=== PATIENT | female | born 1975 | race Caucasian/White ===

== ENCOUNTER 2018-03-30 20:29 | Inpatient (IN) | payer OTHER ==
--- NOTE | 2018-03-30 20:46 | PDOC ---
Rapid Medical Evaluation Medical Evaluation: I have performed a brief in-person evaluation of this patient. The patient presents with a chief complaint of: Hx of Crohn's disease s/p total colectomy with ostomy reversal, c/o NBNB emesis since 2 days ago; states always has watery diarrhea. Denies fever. Feels like Crohn's flareup Pertinent physical exam findings: Appears uncomfortable, dry mucous membranes, with TTP along R side of abdomen I have ordered the following: Labs, IVF, Zofran The patient will proceed to the ED for further evaluation. 03/30/18 20:43
[2018-03-30] MEDS ORDERED: ONDANSETRON 4 MG/2 ML VIAL IVPUSH ONE (20:47)
[2018-03-30] MEDS ORDERED: SODIUM CHLORIDE 1,000 ML IV STA (20:47)
[2018-03-30] MEDS ORDERED: ACETAMINOPHEN 1000 MG/100 ML VIAL (NON FORMULARY) IVPB ONE (20:47)
--- NOTE | 2018-03-30 21:19 | PDOC ---
History of Present Illness - General Chief Complaint: Pain Stated Complaint: ABDOMINAL PAIN HIGH HEART RATE Time Seen by Provider: 03/30/18 21:18 - History of Present Illness Initial Comments: 03/30/18 21:40 The patient is a 42 year old female with a history of crohn's disease who presents for evaluation of abdominal pain, nausea, vomiting, and diarrhea. The patient reports a several day history of worsening crampy right sided abdominal pain with associated nausea and multiple episodes of non-bilious, non-bloody vomiting and non-bloody diarrhea prompting her presentation to the ED for further evaluation. She notes that she had an colectomy with iliostomy and reversal in December 2017 at [facility]. She states that her current symptoms are similar to her normal crohn's flares. She reports some low grade fevers, but otherwise denies chills, SOB, chest pain, headache, numbness, tingling, weakness , or changes with urination. Past History - Past Medical History Allergies/Adverse Reactions: Allergies Allergy/AdvReac Type Severity Reaction Status Date / Time aspirin Allergy Verified 03/30/18 20:47 Iodine and Iodide Containing Allergy Verified 03/31/18 00:17 Produc metoclopramide [From Reglan] Allergy Verified 03/30/18 20:47 morphine Allergy Verified 03/30/18 20:47 Penicillins Allergy Verified 03/30/18 20:47 shellfish derived Allergy Verified 03/30/18 20:47 Home Medications: Ambulatory Orders Diphenoxylate 2.5/Atropine.025 [Lomotil -] 1 combo PO Q6H 03/31/18 Enoxaparin [Lovenox -] 40 mg SQ BID 03/31/18 Loperamide HCl [Imodium -] 8 mg PO QID 03/31/18 Ondansetron [Zofran -] 4 mg PO Q4H PRN 03/31/18 Pantoprazole Sodium [Protonix -] 40 mg PO DAILY 03/31/18 - Suicide/Smoking/Psychosocial Hx Smoking History: Never smoked Have you smoked in the past 12 months: No Information on smoking cessation initiated: No Hx Alcohol Use: No Drug/Substance Use Hx: No Review of Systems - Review of Systems Comments:: 03/30/18 21:44 Constitutional: Low grade fever. No chills, fatigue, malaise HEENT: No Rhinorrhea, nasal congestion, visual changes Cardiovascular: No chest pain, syncope, palpitations, lightheadedness Respiratory: No Cough, SOB, Hemoptysis, Gastrointestinal: Abdominal pain, nausea, vomiting, diarrhea. No Constipation, Melena Genitourinary: No Dysuria, Frequency, Urgency, Hesitancy, Hematuria, Flank pain Musculoskeletal: No Myalgia, arthralgia Skin: No rashes, itching, bruising, pallor Neurologic: No Headache, Dizziness, Numbness, Weakness, or Tingling Psychiatric: No Hallucinations. No SI or HI *Physical Exam - Vital Signs Last Vital Signs Temp Pulse Resp BP Pulse Ox 97.8 F 117 H 18 131/97 98 03/30/18 20:43 03/30/18 20:43 03/30/18 20:43 03/30/18 20:43 03/30/18 20:43 - Physical Exam Comments: 03/30/18 21:45 General Appearance: Nourished. Uncomfortable appearing. HEENT: No Pharyngeal Erythema, Tonsillar Exudate, Tonsillar Erythema Neck: No Cervical Lymphadenopathy Respiratory/Chest: Lungs Clear, Normal Breath Sounds. No Crackles, Rales, Rhonchi, Wheezing Cardiovascular: Regular Rhythm, Regular Rate. No Murmur, Gallops, Rubs Gastrointestinal/Abdominal: Normal Bowel Sounds, Diffuse tenderness to palpation worse on the right sided with guarding. No Rebound Musculoskeletal: No CVA Tenderness Extremity: Normal Capillary Refill Integumentary: Normal Color, Dry, Warm Neurologic: Fully Oriented, Alert, Normal Mood/Affect, Normal Response, Moderate Sedation - Procedure Monitoring Vital Signs: Procedure Monitoring Vital Signs Temperature 97.8 F 03/30/18 20:43 Pulse Rate 117 H 03/30/18 20:43 Respiratory Rate 18 03/30/18 20:43 Blood Pressure 131/97 03/30/18 20:43 O2 Sat by Pulse Oximetry (%) 98 03/30/18 20:43 ED Treatment Course - LABORATORY CBC & Chemistry Diagram: 03/31/18 00:05 03/31/18 00:05 Medical Decision Making - Medical Decision Making 03/30/18 21:46 The patient is a 42 year old female with a history of crohn's disease who presents for evaluation of abdominal pain, nausea, vomiting, and diarrhea. Differential includes but is not limited to: Crohn's flare, Fistula, Abscess, Pancreatitis, Infectious, Metabolic Derangement. Given the patient's history and physical exam, it is likely the patient's symptoms are due to a crohn's flare. However, we will obtain a cbc, cmp, crp, esr, lipase, ua, test , CT abdomen/pelvis with contrast to evaluate further. We will treat with iv fluids, zofran, tylenol, benadryl, dilaudid and continue to monitor and reassess while here in the ED. 03/31/18 05:57 CBC is unremarkable. CMP is unremarkable. ESR and CRP are elevated. Lipase is elevated to 600. UA demonstrates elevated wbc and rbc with negative leuk esterase. CT abdomen/pelvis demonstrates findings consistent with a diarrheal illness and a right hemorrhagic kidney cyst as read by our [employer] consultant radiologist. The patient has continued to require pain management with minimal improvement in her symptoms. She will require admission for further management. We discussed the case with the admitting team who accepted the patient for admission. *DC/Admit/Observation/Transfer Diagnosis at time of Disposition: Crohns disease Qualifiers: Gastrointestinal tract location: unspecified location Digestive disease complication type: unspecified complication Qualified Code(s): K50.919 - Crohn' s disease, unspecified, with unspecified complications Abdominal pain Qualifiers: Abdominal location: unspecified location Qualified Code(s): R10.9 - Unspecified abdominal pain - Discharge Dispostion Condition at time of disposition: Stable Decision to Admit order: Yes - Referrals - Patient Instructions - Post Discharge Activity
[2018-03-30] MEDS ORDERED: HYDROmorphone HCL CARPU-JECT 2 MG/1 ML DISP.SYRIN IVPUSH ONE (21:37)
--- NOTE | 2018-03-30 21:52 | PDOC ---
Attending Attestation - HPI HPI: 03/30/18 22:01 The patient is a 42 year old female, with a significant past medical history of Crohn's disease s/p total colectomy with ostomy reversal, who presents to the emergency department with a few days of nausea, vomiting and diarrhea with associated right lower abdominal pain and subjective fevers. She reports multiple episodes of emesis and watery diarrhea. She denies any blood in her emesis or bowel movements. She states her surgeon at [facility] , however, the surgeon is away until April. She states this feels similar to her Crohns disease. The patient denies chest pain, shortness of breath, headache and dizziness. The patient denies fever, chills, and constipation. The patient denies dysuria, frequency, urgency and hematuria. Past surgical history: total colectomy with ostomy reversal Social history: Denies ETOH or tobacco - Medical Decision Making 03/30/18 22:01 Documentation prepared by Hilary Jefferson, acting as medical assistant float for Jani Alva MD <Hilary Jefferson - Last Filed: 03/30/18 22:01> - Resident Resident Name: Francisco Craven - ED Attending Attestation I have performed the following: I have examined & evaluated the patient, The case was reviewed & discussed with the resident, I agree w/resident's findings & plan, Exceptions are as noted - Physicial Exam PE: 03/30/18 22:20 Agree with exam as documented by resident - Medical Decision Making 03/30/18 22:20 Hx, PE consistent with Chron's flare, no signs of obstruction, other intra- abdominal pathology less likely f/u labs, tx with steroids, ivf f/u CT a/p dispo per clinical course 03/31/18 04:03 To be admitted, report given to in patient team <Jani Alva - Last Filed: 03/31/18 04:03>
[2018-03-30] MEDS ORDERED: ACETAMINOPHEN INJECTION 100 ML IVPB ONE (22:27)
[2018-03-30] MEDS ORDERED: ONDANSETRON 4 MG/2 ML VIAL ONE (22:28)
[2018-03-30] MEDS ORDERED: HYDROmorphone HCl 2 MG/ML VIAL ONE (22:38)
[2018-03-30 23:18] LABS: URINE APPEARANCE CLOUDY; URINE BILIRUBIN NEGATIVE (<2.0 mg/dL); URINE COLOR RED; URINE GLUCOSE (UA) NEGATIVE (NEGATIVE); URINE KETONE NEGATIVE (NEGATIVE); URINE LEUK ESTERASE TRACE (NEGATIVE); URINE NITRITE NEGATIVE (NEGATIVE); URINE PROTEIN 2+ (NEGATIVE); URINE UROBILINOGEN NEGATIVE mg/dL (0.2-1.0)
[2018-03-30 23:32] LABS: URINE MUCUS RARE
[2018-03-31] MEDS ORDERED: HYDROmorphone HCL CARPU-JECT 2 MG/1 ML DISP.SYRIN IVPUSH ONE ×2 (00:09→02:01)
[2018-03-31] MEDS ORDERED: HYDROmorphone HCl 2 MG/ML VIAL ONE ×6 (00:11→14:10)
[2018-03-31] MEDS ORDERED: ONDANSETRON 4 MG/2 ML VIAL IVPUSH ONE (00:24)
[2018-03-31] MEDS ORDERED: ONDANSETRON *ODT* 4 MG TABLET ONE (00:45)
[2018-03-31] MEDS ORDERED: ONDANSETRON 4 MG/2 ML VIAL ONE ×2 (00:46→07:04)
[2018-03-31 00:48] LABS: BASO % 0.6 % (0-2.0); EOS % 1.7 % (0-4.5); HEMOGLOBIN 10.8 GM/dL (10.7-15.3); LYMPH % 18.9 % (8-40); MCH 29.1 pg (25.7-33.7); MEAN CELL VOLUME 83.2 fl (80-96); MEAN PLT VOLUME 8.3 fl (7.5-11.1); MONO % 7.5 % (3.8-10.2); NEUT % 71.3 % (42.8-82.8); PLATELET COUNT 356 K/MM3 (134-434); RBC 3.73 M/mm3 (3.60-5.2); RDW 12.6 % (11.6-15.6); WHITE BLOOD COUNT 7.7 K/mm3 (4.0-10.0)
[2018-03-31 01:10] LABS: ALBUMIN 3.7 g/dl (3.4-5.0); ALK PHOS 130 U/L (45-117); ANION GAP 7 MMOL/L (8-16); BILIRUBIN,TOTAL 0.2 mg/dL (0.2-1); BLOOD UREA NITROGEN 9 mg/dL (7-18); CALCIUM 8.8 mg/dL (8.5-10.1); CHLORIDE 103 mmol/L (98-107); CO2 28 mmol/L (21-32); CREATININE 0.7 mg/dL (0.55-1.3); GLUCOSE,RANDOM 113 mg/dL (74-106); LIPASE 608 U/L (73-393); POTASSIUM 3.8 mmol/L (3.5-5.1); SGOT/AST 17 U/L (15-37); SGPT/ALT 42 U/L (13-61); SODIUM 138 mmol/L (136-145); TOT PROT 6.6 g/dl (6.4-8.2)
[2018-03-31] MEDS ORDERED: SODIUM CHLORIDE 1,000 ML IV STA (02:00)
--- NOTE | 2018-03-31 03:00 | PN ---
Teaching Attending Note Name of Resident: Jose Lane ATTENDING PHYSICIAN STATEMENT I saw and evaluated the patient. I reviewed the resident's note and discussed the case with the resident. I agree with the resident's findings and plan as documented. 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 The patient reports a several day history of worsening crampy right sided abdominal pain with associated nausea and multiple episodes of non-bilious, non-bloody vomiting and non-bloody diarrhea prompting her presentation to the ER for further evaluation. She notes that she had an colectomy with iliostomy and reversal in December 2017 at [facility]. She is scheduled to be starting Humira soon. She states that her current symptoms are similar to her normal Crohn's flares. She reports some low grade fevers, but otherwise denies chills, SOB, chest pain, headache, numbness, tingling, weakness , or changes with urination. OBJECTIVE: Alert, weak and in pain Vital Signs Period Temp Pulse Resp BP Sys/Newton Pulse Ox Last 24 Hr 97.8 F-97.8 F 93-117 18-18 98-131/66-97 98-98 HEENT: No Jaundice, eye redness or discharge, PERRLA, EOMI. Normocephalic, atraumatic. External ears are normal and hearing is grossly intact. No nasal discharge. Neck: Supple, nontender. No palpable adenopathy or thyromegaly. No JVD Chest: Left chest port. Good effort. Clear to auscultation and percussion. Heart: Regular. No S3, rub or murmur Abdomen: Not distended, soft, diffuse tenderness and no HSM. No rebound or guarding. Normoactive bowel sounds. Ext: Peripheral pulses intact. No leg edema. Swollen finger joints. Skin: Warm and dry. No petechiae, rash or ecchymosis. Neuro: Alert. Oriented x3. CN 2-12 grossly intact. Sensation grossly intact in all four extremities and DTR are symmetric. Current Medications Generic Name Dose Route Start Last Admin Trade Name Freq PRN Reason Stop Dose Admin Sodium Chloride 1,000 mls @ 1,000 mls/hr 03/31/18 02:00 03/31/18 02:11 Normal Saline - IV 03/31/18 02:59 1,000 mls/hr ASDIR STA Administration Abnormal Lab Results 03/30/18 03/31/18 03/31/18 22:55 00:05 00:05 Hct 31.0 L ESR Anion Gap 7 L Random Glucose 113 H Alkaline Phosphatase 130 H C-Reactive Protein 0.7 H Lipase 608 H Urine Protein 2+ H Urine Blood 3+ H 03/31/18 00:05 Hct ESR 43 H Anion Gap Random Glucose Alkaline Phosphatase C-Reactive Protein Lipase Urine Protein Urine Blood ASSESSMENT AND PLAN: 1. Crohn's Flare up - CT scan of abdomen showed hemorrhagic right renal cysts, but no evidence of pancreatitis. She got solumedrol in the ER. Will continue treatment with solumedrol, IV LR and dilaudid for pain control. Monitor HCT and hematuria in view of hemorrhagic renal cyst and for now will continue her lovenox therapy for remote pulmonary embolism. There is no indication for antibiotics at this time. Her QTc is 470 - will repeat EKG in the morning since she has been on zofran. Consult GI and Urology. 2. DVT prophylaxis - Lovenox 40 mg SQ q 12 hours for remote PE. 3. Advance directives - Full code
[2018-03-31] MEDS ORDERED: methylPREDNISolone NA SUCC 125 MG/2 ML VIAL IVPUSH ONE (03:21)
--- NOTE | 2018-03-31 03:36 | HP ---
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 The patient reports several days of worsening crampy right sided abdominal pain with associated nausea and multiple episodes of non-bilious, non-bloody vomiting and non-bloody diarrhea. Pt states she has been unable to tolerate any PO. She notes that she has PMH of colectomy in 2012 with iliostomy and reversal in December 2017 at [facility]. She states that her current symptoms are similar to her normal crohn's flares. She reports some low grade fevers, but otherwise denies chills, SOB, cp, PEÑA, numbness, tingling, weakness, or dysuria. Pt does however endorse hematuria within the past day or two. Pt denies any specific reason or cause for her current flare up. Denies any changes in diet. She avoids fast food and raw vegetables but does drink diet coke. Of note, pt last flare up was in 07/2017. pt was hospitalized in [facility]. 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 Pt was started on lovenx 40 bid. PO AC was ineffective due to malabsorption issues. Pt was told she will need to be on AC indefinitely. pt also required IVC filter which has now been removed. Pt's sulfasalazine was discontinued at that time bec it was felt it would be ineffective given the severity and worsening of her crohns and bec it may be contributing to her hyper coag state/PE. pt is to start olya 8wks post op ostomy reversal but has not started yet bec they are waiting for her sxs to remain stable. Has been seen by a Rheumotologist who also recommends olya. pt has double lumen Left chest port. Has had multiple transfusions and has poor peripheral access due to many sticks due to many hospitalizations ER course was notable for: (1)2L NS, zofran x2, tylenol, IV benadryl x2, dilaudid, solumedrol 125 (2)CT A/P - R renal hemorrhagic or proteinaceous cyst (3)UA 3+blod, 2+ protein, trace leuk est, wbc 746, RBC 1026 4) pt complained of vaginal pressure and incontinence. concern for prolapse? was evaluated and found to not have prolapse Recent Travel: PAST MEDICAL HISTORY: per HPI [facility] - GI Dr Neville. colorectal surgeon is out of the country at this time PAST SURGICAL HISTORY: PER PI Social History: Smoking: denies Alcohol: occasional Drugs: denies works as an ED ICU nurse at [employer] Family History: maternal grandmother - crohns. Lung CA 2/2 smoke mom - crohns, uterine/breast CA dad - epilepsy Allergies aspirin Allergy (Verified 03/30/18 20:47) - rash as a kid Iodine and Iodide Containing Produc Allergy (Verified 03/31/18 00:17) metoclopramide [From Reglan] Allergy (Verified 03/30/18 20:47) morphine Allergy (Verified 03/30/18 20:47) - hives Penicillins Allergy (Verified 03/30/18 20:47) shellfish derived Allergy (Verified 03/30/18 20:47) HOME MEDICATIONS: Home Medications Medication Instructions Recorded Diphenoxylate 2.5/Atropine.025 1 combo PO Q6H 03/31/18 [Lomotil -] Enoxaparin [Lovenox -] 40 mg SQ BID 03/31/18 Loperamide HCl [Imodium -] 8 mg PO QID 03/31/18 Ondansetron [Zofran -] 4 mg PO Q4H PRN 03/31/18 Pantoprazole Sodium [Protonix -] 40 mg PO DAILY 03/31/18 REVIEW OF SYSTEMS per hpi PHYSICAL EXAMINATION Vital Signs - 24 hr 03/30/18 03/30/18 03/31/18 20:43 23:15 02:39 Temperature 97.8 F 97.8 F Pulse Rate 117 H Pulse Rate [ 97 H 93 H Apical] Respiratory 18 18 18 Rate Blood Pressure 131/97 Blood Pressure 100/76 98/66 [Right Arm] O2 Sat by Pulse 98 98 98 Oximetry (%) GENERAL: AOX3, weak in pain HEAD: NCAT EYES: extraocular movements intact, sclera anicteric, conjunctiva clear. No lid lag. EARS, NOSE, THROAT: Ears normal, nares patent, oropharynx clear without exudates. dry mucous membranes. NECK: Normal range of motion, supple without lymphadenopathy, JVD, or masses. LUNGS: CTAB. Left chest port. HEART: RRR, normal S1 and S2 without murmur, rub or gallop. ABDOMEN: Soft, TTP diffusely, ND, normoactive bowel sounds, no guarding, no rebound, no masses. +surgical scars MUSCULOSKELETAL: Normal range of motion at all joints. No bony deformities or tenderness. UPPER EXTREMITIES: 2+ pulses, warm, well-perfused. Swollen finger joints. LOWER EXTREMITIES: 2+ pulses, warm, well-perfused. No calf tenderness. No peripheral edema. NEUROLOGICAL: Cranial nerves II-XII intact. Normal speech. SKIN: Warm, dry, normal turgor, no rashes or lesions noted, normal capillary refill. Laboratory Results - last 24 hr 03/30/18 03/30/18 03/31/18 21:47 22:55 00:05 WBC 7.7 RBC 3.73 Hgb 10.8 Hct 31.0 L MCV 83.2 MCH 29.1 MCHC 35.0 RDW 12.6 Plt Count 356 MPV 8.3 Absolute Neuts (auto) 5.5 Neutrophils % 71.3 Lymphocytes % 18.9 Monocytes % 7.5 Eosinophils % 1.7 Basophils % 0.6 Nucleated RBC % 0 ESR Sodium Potassium Chloride Carbon Dioxide Anion Gap BUN Creatinine Creat Clearance w eGFR Random Glucose Lactic Acid 1.0 Calcium Total Bilirubin AST ALT Alkaline Phosphatase C-Reactive Protein Total Protein Albumin Lipase Serum , Qual Urine Color Red Urine Appearance Cloudy Urine pH 6.0 Ur Specific [place] 1.021 Urine Protein 2+ H Urine Glucose (UA) Negative Urine Ketones Negative Urine Blood 3+ H Urine Nitrite Negative Urine Bilirubin Negative Urine Urobilinogen Negative Ur Leukocyte Esterase Trace Urine WBC (Auto) 746 Urine RBC (Auto) 1026 Urine Mucus Rare 03/31/18 03/31/18 03/31/18 00:05 00:05 00:05 WBC RBC Hgb Hct MCV MCH MCHC RDW Plt Count MPV Absolute Neuts (auto) Neutrophils % Lymphocytes % Monocytes % Eosinophils % Basophils % Nucleated RBC % ESR Sodium 138 Potassium 3.8 Chloride 103 Carbon Dioxide 28 Anion Gap 7 L BUN 9 Creatinine 0.7 Creat Clearance w eGFR > 60 Random Glucose 113 H Lactic Acid Calcium 8.8 Total Bilirubin 0.2 AST 17 ALT 42 Alkaline Phosphatase 130 H C-Reactive Protein 0.7 H Total Protein 6.6 Albumin 3.7 Lipase 608 H Cancelled Serum , Qual Negative Urine Color Urine Appearance Urine pH Ur Specific [place] Urine Protein Urine Glucose (UA) Urine Ketones Urine Blood Urine Nitrite Urine Bilirubin Urine Urobilinogen Ur Leukocyte Esterase Urine WBC (Auto) Urine RBC (Auto) Urine Mucus 03/31/18 03/31/18 00:05 00:05 WBC RBC Hgb Hct MCV MCH MCHC RDW Plt Count MPV Absolute Neuts (auto) Neutrophils % Lymphocytes % Monocytes % Eosinophils % Basophils % Nucleated RBC % ESR 43 H Sodium Potassium Chloride Carbon Dioxide Anion Gap BUN Creatinine Creat Clearance w eGFR Random Glucose Lactic Acid Calcium Total Bilirubin AST ALT Alkaline Phosphatase C-Reactive Protein Cancelled Total Protein Albumin Lipase Serum , Qual Urine Color Urine Appearance Urine pH Ur Specific [place] Urine Protein Urine Glucose (UA) Urine Ketones Urine Blood Urine Nitrite Urine Bilirubin Urine Urobilinogen Ur Leukocyte Esterase Urine WBC (Auto) Urine RBC (Auto) Urine Mucus ASSESSMENT/PLAN: 42 yo F PMH kidney stones x2(2008, 9mm s/p lithotripsy/stent), appendectomy, cholecysectomy, 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 #Crohn's Flare up - Lipase 608, ESR 43, CRP .7, CT A/P R renal hemorrhagic or proteinaceous cyst, but no evidence of pancreatitis or bowel wall thickening or obstruction. s/p 2L NS, zofran x2, tylenol, IV benadryl x2, dilaudid, solumedrol 125 in the ED c/w solumedrol 60 qd LR 125 cc dilauded for pain control zofran for nausea QTc is 470 rpt EKG and monitor Qtc monitor H/H no indication for abx at this time - afebrile and w/o leukocytosis or infx source UA 3+blood, 2+ protein, trace leuk est, wbc 746, RBC 1026 - results can be attributed to R renal hemorrhagic or proteinaceous cyst and does not seem to be indicative of UTI. also pt w/o dysuria c diff studies ordered hold off on imodium and lomotil pending C diff studies Consult GI #R renal hemorrhagic or proteinaceous cyst monitor H/H and hematuria for now will continue her lovenox therapy for remote PE due to her high risk based on PMH per pt, prior CT in 07/2017 showed no cyst may consider Urology consult #prolapse? pt complained of vaginal pressure and incontinence. concern for prolapse? was evaluated and found to not have prolapse will monitor #FEN LR 125 cc replete prn NPO #ppx Lovenox 40 mg SQ BID for remote PE. protonix IVP #Advance directives - Full code #Dispo admit to med/surg Visit type - Emergency Visit Emergency Visit: Yes ED Registration Date: 03/31/18 Care time: The patient presented to the Emergency Department on the above date and was hospitalized for further evaluation of their emergent condition. - New Patient This patient is new to me today: Yes Date on this admission: 03/31/18 - Critical Care Critical Care patient: No
[2018-03-31] MEDS ORDERED: methylPREDNISolone NA SUCC 125 MG/2 ML VIAL ONE (03:44)
[2018-03-31] MEDS ORDERED: HYDROmorphone HCl 2 MG/ML VIAL IVPUSH ONE (04:26)
[2018-03-31] MEDS ORDERED: ONDANSETRON 4 MG/2 ML VIAL IVPUSH PRN (04:47)
[2018-03-31] MEDS ORDERED: PANTOPRAZOLE SODIUM 40 MG VIAL IVPUSH ONE (04:50)
[2018-03-31] MEDS: LACTATED RINGERS SOLUTION 1,000 ML IV SCH ×3 (05:38→19:04)
[2018-03-31] MEDS ORDERED: PANTOPRAZOLE SODIUM 40 MG/100 ML BAG IVPB ONE (05:42)
[2018-03-31] MEDS: HYDROmorphone HCl 2 MG/ML VIAL IVPUSH PRN ×5 (07:11→20:30)
[2018-03-31 08:37] LABS: BASO % 0.3 % (0-2.0); EOS % 0.2 % (0-4.5); HEMATOCRIT 30.3 % (32.4-45.2); HEMOGLOBIN 10.5 GM/dL (10.7-15.3); LYMPH % 9.5 % (8-40); MCH 29.2 pg (25.7-33.7); MCHC 34.7 g/dl (32.0-36.0); MEAN CELL VOLUME 84.2 fl (80-96); MEAN PLT VOLUME 7.8 fl (7.5-11.1); MONO % 1.1 % (3.8-10.2); NEUT % 88.9 % (42.8-82.8); PLATELET COUNT 331 K/MM3 (134-434); RDW 12.4 % (11.6-15.6); WHITE BLOOD COUNT 6.3 K/mm3 (4.0-10.0)
[2018-03-31 09:11] LABS: ALBUMIN 3.5 g/dl (3.4-5.0); ALK PHOS 133 U/L (45-117); ANION GAP 6 MMOL/L (8-16); BILIRUBIN,TOTAL 0.2 mg/dL (0.2-1); BLOOD UREA NITROGEN 9 mg/dL (7-18); CALCIUM 8.6 mg/dL (8.5-10.1); CHLORIDE 108 mmol/L (98-107); CO2 25 mmol/L (21-32); CREATININE 0.7 mg/dL (0.55-1.3); GLUCOSE,RANDOM 126 mg/dL (74-106); MAGNESIUM 1.6 mg/dL (1.8-2.4); PHOSPHOROUS 3.5 mg/dL (2.5-4.9); POTASSIUM 4.4 mmol/L (3.5-5.1); SGOT/AST 29 U/L (15-37); SGPT/ALT 43 U/L (13-61); SODIUM 139 mmol/L (136-145); TOT PROT 6.4 g/dl (6.4-8.2)
[2018-03-31] MEDS ORDERED: MAGNESIUM SULF 50% (8.12 MEQ/2 ML-1 GM VIAL) IVPB ONE (09:28)
--- NOTE | 2018-03-31 10:00 | PN ---
Teaching Attending Note Name of Resident: Yary Arredondo ATTENDING PHYSICIAN STATEMENT I saw and evaluated the patient. I reviewed the resident's note and discussed the case with the resident. I agree with the resident's findings and plan as documented. SUBJECTIVE: Patient is feeling nauseas, does not want to be transferred to [facility]. OBJECTIVE: Vital Signs Temperature 97.8 F 03/31/18 02:39 Pulse Rate 91 H 03/31/18 06:18 Respiratory Rate 18 03/31/18 06:18 Blood Pressure 110/62 03/31/18 06:18 O2 Sat by Pulse Oximetry (%) 99 03/31/18 06:18 GENERAL: AOX3, weak in pain HEAD: NCAT, EYES: extraocular movements intact, sclera anicteric, conjunctiva clear. EARS, NOSE, THROAT: Ears normal, oropharynx clear without exudates. dry mucous membranes. NECK: Normal range of motion, supple without lymphadenopathy, JVD, or masses. LUNGS: CTAB. Left chest port. HEART: RRR, normal S1 and S2 without murmur, rub or gallop. ABDOMEN: Soft, diffuse lower abdomen mild tenderness , positive for BS , no guarding, no rebound, no masses. positive for surgical scars EXTREMITIES: 2+ pulses, warm, well-perfused. Swollen finger joints of upper NEUROLOGICAL: Cranial nerves II-XII intact. Normal speech. SKIN: Warm, dry, normal turgor, no rashes or lesions noted, normal capillary refill. CBCD WBC 6.3 K/mm3 (4.0-10.0) 03/31/18 08:20 RBC 3.60 M/mm3 (3.60-5.2) 03/31/18 08:20 Hgb 10.5 GM/dL (10.7-15.3) L 03/31/18 08:20 Hct 30.3 % (32.4-45.2) L 03/31/18 08:20 MCV 84.2 fl (80-96) 03/31/18 08:20 MCHC 34.7 g/dl (32.0-36.0) 03/31/18 08:20 RDW 12.4 % (11.6-15.6) 03/31/18 08:20 Plt Count 331 K/MM3 (134-434) 03/31/18 08:20 MPV 7.8 fl (7.5-11.1) 03/31/18 08:20 CMP Sodium 139 mmol/L (136-145) 03/31/18 08:20 Potassium 4.4 mmol/L (3.5-5.1) 03/31/18 08:20 Chloride 108 mmol/L (98-107) H 03/31/18 08:20 Carbon Dioxide 25 mmol/L (21-32) 03/31/18 08:20 Anion Gap 6 MMOL/L (8-16) L 03/31/18 08:20 BUN 9 mg/dL (7-18) 03/31/18 08:20 Creatinine 0.7 mg/dL (0.55-1.3) 03/31/18 08:20 Creat Clearance w eGFR > 60 (>60) 03/31/18 08:20 Random Glucose 126 mg/dL (74-106) H 03/31/18 08:20 Calcium 8.6 mg/dL (8.5-10.1) 03/31/18 08:20 Total Bilirubin 0.2 mg/dL (0.2-1) 03/31/18 08:20 AST 29 U/L (15-37) 03/31/18 08:20 ALT 43 U/L (13-61) 03/31/18 08:20 Alkaline Phosphatase 133 U/L (45-117) H 03/31/18 08:20 Total Protein 6.4 g/dl (6.4-8.2) 03/31/18 08:20 Albumin 3.5 g/dl (3.4-5.0) 03/31/18 08:20 Current Medications Generic Name Dose Route Start Last Admin Trade Name Freq PRN Reason Stop Dose Admin Enoxaparin Sodium 40 mg 03/31/18 10:00 Lovenox - SQ BID EVELYN Hydromorphone HCl 0.5 mg 03/31/18 04:43 03/31/18 07:11 Dilaudid Vial - IVPUSH 0.5 mg Q3H PRN Administration PAIN LEVEL 6-10 Lactated Ringer's 1,000 mls @ 125 mls/hr 03/31/18 04:45 03/31/18 05:38 Lactated Ringers Solution IV 125 mls/hr ASDIR EVELYN Administration Methylprednisolone Sodium Succinate 60 mg 04/01/18 10:00 Solu-Medrol - IVPUSH DAILY EVELYN Ondansetron HCl 4 mg 03/31/18 04:47 03/31/18 07:12 Zofran Injection IVPUSH 4 mg Q6H PRN Administration NAUSEA Home Medications Medication Instructions Recorded Diphenoxylate 2.5/Atropine.025 1 combo PO Q6H 03/31/18 [Lomotil -] Enoxaparin [Lovenox -] 40 mg SQ BID 03/31/18 Loperamide HCl [Imodium -] 8 mg PO QID 03/31/18 Ondansetron [Zofran -] 4 mg PO Q4H PRN 03/31/18 Pantoprazole Sodium [Protonix -] 40 mg PO DAILY 03/31/18 Evaluation of the lung bases demonstrates platelike atelectasis within the right lower lobe. There are small hyperdense masses within both kidneys. This includes an 11 mm mass within the upper pole of the right kidney and an 8 mm mass within the lower pole of the left kidney. These may represent hyperdense cysts. Sonographic follow-up is recommended. The liver, spleen, pancreas and adrenal glands demonstrate no significant abnormalities. The gallbladder has been removed. There is no evidence of intra-abdominal or retroperitoneal lymphadenopathy or fluid collections. There is no evidence of pneumoperitoneum, bowel obstruction or intra-abdominal abscess. The patient is S/P abdominal surgery with suture lines within the right lower quadrant and pelvis. Surgical clips are identified throughout the abdomen and pelvis. Clinical correlation as to the nature of these procedures is recommended. Examination of the pelvis demonstrates no evidence of pelvic masses, fluid collections or lymphadenopathy. IMPRESSION: 1. Hyperdense renal masses possibly representing cysts. Sonographic follow-up recommended. 2. S/P multiple abdominal surgeries with no evidence of bowel obstruction or acute pathology within the abdomen or pelvis. Please see above discussion. Reported By: Vitor Orlando MD 03/31/18821 Technologist: Letitia Anthony Transcribed Date/Time: 03/31/18821 Pediatric Rn: Vitor Orlando Printed Date/Time. 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 #Acute Nausea/Vomiting and Diarrhea as per patient post reversal of the colostomy increased her diarrhea, patient Takes Imodium and Lomotil daily at home but does not help. Will hold the Zofran since her QTc is in 479's. Gi consulted, as per patient Benadryl helps her nausea and vomiting. will place her on Benadryl 12.5 mg q4hr prn, NPO for now, IVF continue, if patient does not improve will try to transfer the patient to [facility] in am. #Right renal hemorrhagic hyperdense mass/ proteinaceous cyst, monitor H/H and hematuria, Urology consult Dr. Owusu to further evaluate the patient with [employer] . # Hx of PE: brenda continue lovenox therapy for now, since patient has a hypercoaguable state.will get Pulmonary to see the patient. as per GI at per pt, prior CT in 07/2017 showed no cyst #DVT Px: Lovenox 40 mg SQ BID for remote PE.
[2018-03-31] MEDS ORDERED: MAGNESIUM 1GM/D5W - 1 GM/100 ML IVPB IVPB ONE (11:14)
[2018-03-31] MEDS: ENOXAPARIN NA (PORCINE) 40 MG/0.4 ML DISP.SYRIN SQ SCH ×2 (11:21→21:04)
--- NOTE | 2018-03-31 11:25 | CON.GI ---
Consult Consult Specialty:: GI: for Dr. Lovett Referred by:: Hospitalist Service Reason for Consultation:: Nausea, vomiting, diarrhea x 2 days. history of Crohn' s Colitis - History of Present Illness Chief Complaint: As above History of Present Illness: 42F admitted through [facility] for evaluation of nausea, vomiting and diarrhea for 2 days duration. She denies any recent travel, sick contacts with similar complaints, change in dietary habits. 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 She has never been to [facility]. She came to [facility] because she was going to be visiting friends and family in this area. He history is complicated. She describes having had a total colectomy secondary to her Crohn's followed by ileostomy x 2 with reversal. Her reversal was 01/27 at [facility]. She described significant DVT with PE 07/28 for which she is on Lovenox BID, Mediiport placement secondary to poor venous access and was to initiate Humira 6 weeks after her reversal due to extraintestinal manifestation of her Crohn's (arthritis). She believes that her last "procedure to look at her small bowel for crohn's" was 07/28 an that they "didn't see any". he sales account executive at [facility] is Dr. Matt Neville. her colorectal surgeon works up there as well. She is vague regarding the timing of this and why it has now been postponed for a couple of weeks. There has been no vomiting today. She states that she continues to have multiple loose BMs and was given a dose of solumedrol 60mg IVPB by the ER. She states that the last time she was on steroids was 12/28, was on Sulfasalazine as well that was discontinued, and is currently on no therapy for Crohn's Disease. CT scan on admission revealed surgical clips and post op changes thoughout the abdomen as well as hyperdense renal masses. - History Source History Provided By: Patient, Medical Record - Past Medical History Gastrointestinal: Yes: Crohn's Disease (Large bowel s/p total colectomy ) - Past Surgical History Past Surgical History: Yes: Appendectomy, Cholecystectomy, Colectomy (Totsl), Ileosotomy (x 2 with recent reversal 01/27) - Alcohol/Substance Use Hx Alcohol Use: No History of Substance Use: reports: None - Smoking History Smoking history: Never smoked Have you smoked in the past 12 months: No - Social History Usual Living Arrangement: Alone ADL: Independent Occupation: Works as Nurse at [employer] Place of : [facility] History of Recent Travel: No Home Medications - Allergies Allergies/Adverse Reactions: Allergies Allergy/AdvReac Type Severity Reaction Status Date / Time aspirin Allergy Verified 03/30/18 20:47 Iodine and Iodide Containing Allergy Verified 03/31/18 00:17 Produc metoclopramide [From Reglan] Allergy Verified 03/30/18 20:47 morphine Allergy Verified 03/30/18 20:47 Penicillins Allergy Verified 03/30/18 20:47 shellfish derived Allergy Verified 03/30/18 20:47 - Home Medications Home Medications: Ambulatory Orders Diphenoxylate 2.5/Atropine.025 [Lomotil -] 1 combo PO Q6H 03/31/18 Enoxaparin [Lovenox -] 40 mg SQ BID 03/31/18 Loperamide HCl [Imodium -] 8 mg PO QID 03/31/18 Ondansetron [Zofran -] 4 mg PO Q4H PRN 03/31/18 Pantoprazole Sodium [Protonix -] 40 mg PO DAILY 03/31/18 Family Disease History - Family Disease History Family Disease History: Other: Father (Alive, healthy), Mother ( : 54: BCA / Uterine CA), Brother (None), Sister (None), Son (None), Daughter (None) Review of Systems - Review of Systems Constitutional: denies: Fever, Unintentional Wgt. Loss Cardiovascular: denies: Chest Pain Respiratory: denies: Cough, SOB Gastrointestinal: reports: Abdominal Pain, Diarrhea, Nausea, Vomiting. denies: Melena, Rectal Bleeding Physical Exam-GI Vital Signs: Vital Signs Temperature 97.9 F 03/31/18 11:00 Pulse Rate 102 03/31/18 11:00 Respiratory Rate 18 03/31/18 11:00 Blood Pressure 127/80 03/31/18 11:00 O2 Sat by Pulse Oximetry (%) 99 03/31/18 11:00 Constitutional: Yes: Calm Eyes: No: Sclera Icterus Cardiovascular: Yes: Tachycardia (regular rhythm), Other (mediport in left chest wall). No: Murmur Respiratory: Yes: CTA Bilaterally Gastrointestinal Inspection: Yes: Scars (Multiple surgical scars). No: Distention ...Auscultate: Yes: Normoactive Bowel Sounds ...Palpate: Yes: Tenderness (TTP, predominantly at the site of the ileostomy reversal) ...Percussion: No: Tympanitic Edema: No (No LE edema) Labs: CBC, BMP 03/31/18 08:20 03/31/18 08:20 Hepatic Panel Total Bilirubin 0.2 mg/dL (0.2-1) 03/31/18 08:20 AST 29 U/L (15-37) 03/31/18 08:20 ALT 43 U/L (13-61) 03/31/18 08:20 Alkaline Phosphatase 133 U/L (45-117) H 03/31/18 08:20 Albumin 3.5 g/dl (3.4-5.0) 03/31/18 08:20 Problem List - Problems (1) Nausea vomiting and diarrhea Assessment/Plan: Unclear is this is a Crohn's flare or alternate etiology such as an acute gastroenteritis. I reviewed CT scan and question if there is matted bowel loop at the site of recent ileostomy reversal (the site of the majority of her pain) . Given her complicated IBD history, Crohn's involvement would still need to be considered in the differential. I discussed things with Ms. Reed and explained that given the complexity of her IBD history as well as recent surgery , further evaluation and monitoring as well as treatment for her Crohn's should be undertaken at the tertiary care center where her care and interventions have been undertaken. She expressed wishes to wait and see if things get better. I advised: Supportive measures: NPO Continued IV hydration Stool for culture, C. Diff, O&P, calprotectin Will need further evaluation of renal findings on CT scan. Unclear if this has been evaluated previously at [facility] If no improvement, transfer to [facility] for further evaluation. I discussed things with Dr. Duvall and advised that they reach out to discuss things with Ms. Reed's colorectal surgeon as well as her sales account executive Dr. Neville @ [facility]. Code(s): R11.2 - NAUSEA WITH VOMITING, UNSPECIFIED; R19.7 - DIARRHEA, UNSPECIFIED
--- NOTE | 2018-03-31 12:04 | EKG ---
Test Reason : Blood Pressure : / mmHG Vent. Rate : 088 BPM Atrial Rate : 088 BPM P-R Int : 132 ms QRS Dur : 082 ms QT Int : 394 ms P-R-T Axes : 062 006 038 degrees QTc Int : 476 ms NORMAL SINUS RHYTHM NORMAL ECG WHEN COMPARED WITH ECG OF 31-MAR-2018 02:17, QUESTIONABLE CHANGE IN QRS AXIS Confirmed by CHE COOK MD ([id number]) on 03/31/2018 12:03:50 PM Referred By: Baldev NOLEN Confirmed By:CHE COOK MD
--- NOTE | 2018-03-31 12:05 | EKG ---
Test Reason : Blood Pressure : / mmHG Vent. Rate : 083 BPM Atrial Rate : 083 BPM P-R Int : 138 ms QRS Dur : 082 ms QT Int : 400 ms P-R-T Axes : 096 081 087 degrees QTc Int : 470 ms NORMAL SINUS RHYTHM NORMAL ECG NO PREVIOUS ECGS AVAILABLE Confirmed by CHE COOK MD ([id number]) on 03/31/2018 12:05:10 PM Referred By: Confirmed By:CHE COOK MD
[2018-03-31] MEDS ORDERED: diphenhydrAMINE HCL 25 MG CAPSULE (FP) PO PRN (14:35)
--- NOTE | 2018-03-31 15:58 | CONSULT ---
Consult Consult Specialty:: Nephrology Reason for Consultation:: hematuria - History of Present Illness Chief Complaint: abd pain, vomiting and diarrhea History of Present Illness: Pt is a 42 year old female with pmhx of Crohn's, multiple abdominal surgeries, and multiple DVTs. She presents with ER with abdominal pain, nausea and vomiting. She has had these symptoms for several days. She follows with a physician in [facility]. She was found to have gross hematuria as well. She has had kidney stones in the past. I was called to evaluate her for hematuria. She had acolectomy with iliostomy with reversal. She denies nsaid use. - History Source History Provided By: Patient - Past Medical History Cardio/Vascular: Yes: Deep Vein Thrombosis Gastrointestinal: Yes: Crohn's Disease (Large bowel s/p total colectomy ) Renal/: Yes: Renal Calculi - Past Surgical History Past Surgical History: Yes: Appendectomy, Cholecystectomy, Colectomy (Totsl), Ileosotomy (x 2 with recent reversal 01/27) - Alcohol/Substance Use Hx Alcohol Use: No History of Substance Use: reports: None - Smoking History Smoking history: Never smoked Have you smoked in the past 12 months: No - Social History Usual Living Arrangement: Alone ADL: Independent Occupation: Works as Nurse at [employer] History of Recent Travel: No Home Medications - Allergies Allergies/Adverse Reactions: Allergies Allergy/AdvReac Type Severity Reaction Status Date / Time aspirin Allergy Verified 03/30/18 20:47 Iodine and Iodide Containing Allergy Verified 03/31/18 00:17 Produc metoclopramide [From Reglan] Allergy Verified 03/30/18 20:47 morphine Allergy Verified 03/30/18 20:47 Penicillins Allergy Verified 03/30/18 20:47 shellfish derived Allergy Verified 03/30/18 20:47 - Home Medications Home Medications: Ambulatory Orders Diphenoxylate 2.5/Atropine.025 [Lomotil -] 1 combo PO Q6H 03/31/18 Enoxaparin [Lovenox -] 40 mg SQ BID 03/31/18 Loperamide HCl [Imodium -] 8 mg PO QID 03/31/18 Ondansetron [Zofran -] 4 mg PO Q6H PRN 03/31/18 Pantoprazole Sodium [Protonix -] 40 mg PO DAILY 03/31/18 Family Disease History - Family Disease History Family Disease History: Other: Father (Alive, healthy), Mother ( : 54: BCA / Uterine CA), Brother (None), Sister (None), Son (None), Daughter (None) Review of Systems - Review of Systems Constitutional: reports: Fever, Malaise. denies: Chills Eyes: reports: No Symptoms HENT: reports: No Symptoms Neck: reports: No Symptoms Cardiovascular: reports: No Symptoms Respiratory: reports: No Symptoms Gastrointestinal: reports: Abdominal Pain, Diarrhea, Vomiting Genitourinary: reports: Hematuria Musculoskeletal: reports: No Symptoms Integumentary: reports: No Symptoms Neurological: reports: No Symptoms Endocrine: reports: No Symptoms Hematology/Lymphatic: reports: No Symptoms Psychiatric: reports: No Symptoms Physical Exam Vital Signs: Vital Signs Temperature 98.3 F 03/31/18 15:27 Pulse Rate 94 H 03/31/18 15:27 Respiratory Rate 18 03/31/18 15:27 Blood Pressure 103/62 03/31/18 15:27 O2 Sat by Pulse Oximetry (%) 96 03/31/18 15:27 Constitutional: Yes: Moderate Distress Eyes: Yes: Conjunctiva Clear HENT: Yes: Atraumatic Neck: Yes: Supple Cardiovascular: Yes: S1, S2 Respiratory: Yes: CTA Bilaterally Gastrointestinal: Yes: Soft, Tenderness Renal/: Yes: Hematuria Musculoskeletal: Yes: WNL Edema: No Neurological: Yes: Oriented Psychiatric: Yes: Oriented Labs: CBC, BMP 03/31/18 08:20 03/31/18 08:20 Laboratory Tests 03/30/18 03/31/18 03/31/18 22:55 00:05 08:20 Sodium 139 Potassium 4.4 Chloride 108 H Creatinine 0.7 0.7 Urine Protein 2+ H Urine Blood 3+ H Urine WBC (Auto) 746 Urine RBC (Auto) 1026 Imaging - Results Cat Scan: Report Reviewed Ultrasound: Report Reviewed Problem List - Problems (1) Abdominal pain Code(s): R10.9 - UNSPECIFIED ABDOMINAL PAIN Qualifiers: Abdominal location: unspecified location Qualified Code(s): R10.9 - Unspecified abdominal pain (2) Crohns disease Code(s): K50.90 - CROHN'S DISEASE, UNSPECIFIED, WITHOUT COMPLICATIONS Qualifiers: Gastrointestinal tract location: unspecified location Digestive disease complication type: unspecified complication Qualified Code(s): K50.919 - Crohn 's disease, unspecified, with unspecified complications (3) Nausea vomiting and diarrhea Code(s): R11.2 - NAUSEA WITH VOMITING, UNSPECIFIED; R19.7 - DIARRHEA, UNSPECIFIED Assessment/Plan Current Medications Generic Name Dose Route Start Last Admin Trade Name Freq PRN Reason Stop Dose Admin Diphenhydramine HCl 12.5 mg 03/31/18 15:00 Benadryl Injection - IVPUSH Q4H PRN FOR ITCHING Enoxaparin Sodium 40 mg 03/31/18 10:00 03/31/18 11:21 Lovenox - SQ 40 mg BID EVELYN Administration Hydromorphone HCl 0.5 mg 03/31/18 04:43 03/31/18 14:17 Dilaudid Vial - IVPUSH 0.5 mg Q3H PRN Administration PAIN LEVEL 6-10 Lactated Ringer's 1,000 mls @ 125 mls/hr 03/31/18 04:45 03/31/18 05:38 Lactated Ringers Solution IV 125 mls/hr ASDIR EVELYN Administration Methylprednisolone Sodium Succinate 60 mg 04/01/18 10:00 Solu-Medrol - IVPUSH DAILY EVELYN Impression 1. hematuria 2. renal mass vs cyst 3. crohns disease 4. hx of DVT 5. vomiting 6. diarrhea 7. hx nephrolithiasis Plan - recommend urology eval - cont fluids - monitor urine output - repeat labs in am - pt is on lovenox for DVTs that she says were caused by severe dehydration in the setting of having catheters. She says she did have an IVC in the past that was removed - will wait for urology input Dr Roy
--- NOTE | 2018-03-31 18:07 | PN ---
Physical Exam: SUBJECTIVE: Patient seen and examined at bedside this morning. Patient reports nausea, bilious vomiting and NBNB diarrhea , as well as hematuria since yesterday. Has had multiple episodes of n/v/d at the ED. Patient is a 42 year old female with a long history of Crohn's disease s/p total colectomy with ostomy reversal, and kidney stone s/p lithotripsy/stent, presented with n/v/d and hematuria. 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 Patient also reported her hands started to swell and is painful for a few days. I was able to speak with patient's GI (Dr. Neville) at [facility]. He sees patient when she's admitted at the hospital. Reported patient did not follow-up with him as outpatient. He was able to look at patient's hospital records. CT scan of the abdomen and pelvis done in 02/26/2018 and 03/28/2018 revealed small bowel is noted to be adherent to the anterior abdominal wall, and a small renal cyst is noted. UA done a week ago (03/27/18) showed normal urinalysis. Dr. Neville in addition thinks it's unlikely that patient is having Crohn's flare- up. I was also able to reach the colorectal surgeon's office (Dr. Chen), who's currently out of the country. They reported patient did not show up during her follow-up in February, and does not have any recorded visits in the clinic. Please refer to patient's physical chart for additional information obtained from Dr. Chen. OBJECTIVE: Vital Signs Period Temp Pulse Resp BP Sys/Newton Pulse Ox Last 24 Hr 97.7 F-98.3 F 80-117 18-18 98-131/61-97 96-99 GENERAL: The patient is awake, alert, and fully oriented, in no acute distress. HEAD: Normal with no signs of trauma. EYES: PERRLA, EOMI, sclera anicteric, pale conjunctivae. ENT: Ears normal, nares patent, oropharynx clear without exudates, dry mucous membranes. NECK: Trachea midline, full range of motion, supple. LUNGS: Breath sounds equal, clear to auscultation bilaterally. HEART: Regular rate and rhythm, S1, S2 without murmur, rub or gallop. ABDOMEN: Soft, +diffuse tenderness, +right flank tenderness, nondistended, normoactive bowel sounds. EXTREMITIES: 2+ pulses, warm, well-perfused, no edema. NEUROLOGICAL: Cranial nerves II through XII grossly intact. Normal speech, gait not observed. PSYCH: Normal mood, normal affect. SKIN: Warm, dry, normal turgor, no rashes or lesions noted Laboratory Results - last 24 hr 03/30/18 03/30/18 03/31/18 21:47 22:55 00:05 WBC 7.7 RBC 3.73 Hgb 10.8 Hct 31.0 L MCV 83.2 MCH 29.1 MCHC 35.0 RDW 12.6 Plt Count 356 MPV 8.3 Absolute Neuts (auto) 5.5 Neutrophils % 71.3 Lymphocytes % 18.9 Monocytes % 7.5 Eosinophils % 1.7 Basophils % 0.6 Nucleated RBC % 0 ESR Sodium Potassium Chloride Carbon Dioxide Anion Gap BUN Creatinine Creat Clearance w eGFR Random Glucose Lactic Acid 1.0 Calcium Phosphorus Magnesium Total Bilirubin AST ALT Alkaline Phosphatase C-Reactive Protein Total Protein Albumin Lipase TSH Serum , Qual Urine Color Red Urine Appearance Cloudy Urine pH 6.0 Ur Specific [place] 1.021 Urine Protein 2+ H Urine Glucose (UA) Negative Urine Ketones Negative Urine Blood 3+ H Urine Nitrite Negative Urine Bilirubin Negative Urine Urobilinogen Negative Ur Leukocyte Esterase Trace Urine WBC (Auto) 746 Urine RBC (Auto) 1026 Urine Mucus Rare 03/31/18 03/31/18 03/31/18 00:05 00:05 00:05 WBC RBC Hgb Hct MCV MCH MCHC RDW Plt Count MPV Absolute Neuts (auto) Neutrophils % Lymphocytes % Monocytes % Eosinophils % Basophils % Nucleated RBC % ESR Sodium 138 Potassium 3.8 Chloride 103 Carbon Dioxide 28 Anion Gap 7 L BUN 9 Creatinine 0.7 Creat Clearance w eGFR > 60 Random Glucose 113 H Lactic Acid Calcium 8.8 Phosphorus Magnesium Total Bilirubin 0.2 AST 17 ALT 42 Alkaline Phosphatase 130 H C-Reactive Protein 0.7 H Total Protein 6.6 Albumin 3.7 Lipase 608 H Cancelled TSH Serum , Qual Negative Urine Color Urine Appearance Urine pH Ur Specific [place] Urine Protein Urine Glucose (UA) Urine Ketones Urine Blood Urine Nitrite Urine Bilirubin Urine Urobilinogen Ur Leukocyte Esterase Urine WBC (Auto) Urine RBC (Auto) Urine Mucus 03/31/18 03/31/18 03/31/18 00:05 00:05 08:20 WBC 6.3 RBC 3.60 Hgb 10.5 L Hct 30.3 L MCV 84.2 MCH 29.2 MCHC 34.7 RDW 12.4 Plt Count 331 MPV 7.8 Absolute Neuts (auto) 5.6 Neutrophils % 88.9 H D Lymphocytes % 9.5 D Monocytes % 1.1 L D Eosinophils % 0.2 D Basophils % 0.3 Nucleated RBC % 0 ESR 43 H Sodium Potassium Chloride Carbon Dioxide Anion Gap BUN Creatinine Creat Clearance w eGFR Random Glucose Lactic Acid Calcium Phosphorus Magnesium Total Bilirubin AST ALT Alkaline Phosphatase C-Reactive Protein Cancelled Total Protein Albumin Lipase TSH Serum , Qual Urine Color Urine Appearance Urine pH Ur Specific [place] Urine Protein Urine Glucose (UA) Urine Ketones Urine Blood Urine Nitrite Urine Bilirubin Urine Urobilinogen Ur Leukocyte Esterase Urine WBC (Auto) Urine RBC (Auto) Urine Mucus 03/31/18 08:20 WBC RBC Hgb Hct MCV MCH MCHC RDW Plt Count MPV Absolute Neuts (auto) Neutrophils % Lymphocytes % Monocytes % Eosinophils % Basophils % Nucleated RBC % ESR Sodium 139 Potassium 4.4 Chloride 108 H Carbon Dioxide 25 Anion Gap 6 L BUN 9 Creatinine 0.7 Creat Clearance w eGFR > 60 Random Glucose 126 H Lactic Acid Calcium 8.6 Phosphorus 3.5 Magnesium 1.6 L Total Bilirubin 0.2 AST 29 ALT 43 Alkaline Phosphatase 133 H C-Reactive Protein Total Protein 6.4 Albumin 3.5 Lipase TSH 0.61 Serum , Qual Urine Color Urine Appearance Urine pH Ur Specific [place] Urine Protein Urine Glucose (UA) Urine Ketones Urine Blood Urine Nitrite Urine Bilirubin Urine Urobilinogen Ur Leukocyte Esterase Urine WBC (Auto) Urine RBC (Auto) Urine Mucus Active Medications Generic Name Dose Route Start Last Admin Trade Name Freq PRN Reason Stop Dose Admin Diphenhydramine HCl 12.5 mg 03/31/18 15:00 03/31/18 17:46 Benadryl Injection - IVPUSH 12.5 mg Q4H PRN Administration FOR ITCHING Enoxaparin Sodium 40 mg 03/31/18 10:00 03/31/18 11:21 Lovenox - SQ 40 mg BID EVELYN Administration Hydromorphone HCl 0.5 mg 03/31/18 04:43 03/31/18 17:26 Dilaudid Vial - IVPUSH 0.5 mg Q3H PRN Administration PAIN LEVEL 6-10 Lactated Ringer's 1,000 mls @ 125 mls/hr 03/31/18 04:45 03/31/18 05:38 Lactated Ringers Solution IV 125 mls/hr ASDIR EVELYN Administration Methylprednisolone Sodium Succinate 60 mg 04/01/18 10:00 Solu-Medrol - IVPUSH DAILY EVELYN ASSESSMENT/PLAN: Patient is a 42 year old female with past medical history of kidney stones x2 (s /p lithotripsy/stent, 2008), appendectomy , cholecystectomy, 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 #Nausea, vomiting, diarrhea: likely 2/2 Crohn's disease vs acute gastroenteritis vs SBO -CT AP: s/p multiple abdominal surgeries with no evidence of bowel obstruction or acute pathology within the abdomen or pelvis. -GI (Dr. Ann) consulted. Recommendations appreciated. -With her complicated IBD history, patient would benefit to be managed at [facility] where her care and interventions has been done. Patient expresses to wait and see if things get better. -Supportive measures for now. -NPO -Continue IV hydration -Stool for culture, C. Diff, O&P, calprotectin -If no improvement, transfer to [facility] for further evaluation. #Hematuria: ?hemorrhagic vs proteinaceous cyst -UA: 3+ blood, 2+protein, trace LE, 746 WBC, 1026 RBC -CT AP: Hyperdense renal masses possibly representing cysts. -Renal US: morphologically normal kidneys with no evidence of nephrolithiasis, hydronephrosis, or acute pathology. The small right renal cyst does correspond to the hyperdense mass noted on the recent CT scan. The hypodense left renal mass could not be identified on the sonogram. -Nephrology (Dr. Roy) consulted. Recommendations appreciated. -continue fluids -monitor urine output -repet labs in the morning -Patient is on Lovenox for DVTs/PE. -Will wait for urology input. -Urology (Dr. Day) consulted. #FEN -IV LR @ 100 -Hypomagnesemia, replete PRN -routine bmp monitoring -NPO #Prophylaxis -Lovenox 40mg sq BID #Disposition -full code -med-surg Visit type - Emergency Visit Emergency Visit: Yes ED Registration Date: 03/31/18 Care time: The patient presented to the Emergency Department on the above date and was hospitalized for further evaluation of their emergent condition. - New Patient This patient is new to me today: Yes Date on this admission: 03/31/18 - Critical Care Critical Care patient: No
[2018-03-31 20:48] VITALS: BMI 20.7
[2018-04-01] MEDS: HYDROmorphone HCl 2 MG/ML VIAL IVPUSH PRN ×6 (01:00→20:28)
[2018-04-01] MEDS: LACTATED RINGERS SOLUTION 1,000 ML IV SCH (02:49)
[2018-04-01 07:37] LABS: BASO % 0.6 % (0-2.0); EOS % 1.3 % (0-4.5); HEMATOCRIT 29.4 % (32.4-45.2); HEMOGLOBIN 10.1 GM/dL (10.7-15.3); LYMPH % 30.6 % (8-40); MCH 28.7 pg (25.7-33.7); MCHC 34.3 g/dl (32.0-36.0); MEAN CELL VOLUME 83.7 fl (80-96); MONO % 6.2 % (3.8-10.2); NEUT % 61.3 % (42.8-82.8); PLATELET COUNT 353 K/MM3 (134-434); RBC 3.51 M/mm3 (3.60-5.2); RDW 12.9 % (11.6-15.6); WHITE BLOOD COUNT 7.1 K/mm3 (4.0-10.0)
[2018-04-01 08:27] LABS: ANION GAP 8 MMOL/L (8-16); BLOOD UREA NITROGEN 8 mg/dL (7-18); CALCIUM 8.9 mg/dL (8.5-10.1); CHLORIDE 104 mmol/L (98-107); CO2 30 mmol/L (21-32); CREATININE 0.6 mg/dL (0.55-1.3); GLUCOSE,RANDOM 88 mg/dL (74-106); MAGNESIUM 2.2 mg/dL (1.8-2.4); PHOSPHOROUS 3.8 mg/dL (2.5-4.9); POTASSIUM 3.9 mmol/L (3.5-5.1); SODIUM 141 mmol/L (136-145)
--- NOTE | 2018-04-01 08:34 | CON.GU ---
Consult Consult Specialty:: urology Reason for Consultation:: hematuria - History of Present Illness Chief Complaint: hematuria History of Present Illness: Patient with history of crohn's disease s/p colectomy and dvt's on lovenox. Patient with red colored urine with mild frequency and urgency. Patient feels pelvic pressure and does not feel she is emptying her bladder. Patient with history of kidney stones and has right sided back pain with nausea and vomiting. She denies fever or chills. - History Source History Provided By: Patient, Medical Record Limitations to Obtaining History: No Limitations - Past Medical History Cardio/Vascular: Yes: Deep Vein Thrombosis Gastrointestinal: Yes: Crohn's Disease (Large bowel s/p total colectomy ) Renal/: Yes: Renal Calculi - Past Surgical History Past Surgical History: Yes: Appendectomy, Cholecystectomy, Colectomy (Totsl), Ileosotomy (x 2 with recent reversal 01/27) - Alcohol/Substance Use Hx Alcohol Use: No History of Substance Use: reports: None - Smoking History Smoking history: Never smoked Have you smoked in the past 12 months: No - Social History Usual Living Arrangement: Alone ADL: Independent 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[place] History of Recent Travel: No Home Medications - Allergies Allergies/Adverse Reactions: Allergies Allergy/AdvReac Type Severity Reaction Status Date / Time aspirin Allergy Verified 03/30/18 20:47 Iodine and Iodide Containing Allergy Verified 03/31/18 00:17 Produc metoclopramide [From Reglan] Allergy Verified 03/30/18 20:47 morphine Allergy Verified 03/30/18 20:47 Penicillins Allergy Verified 03/30/18 20:47 shellfish derived Allergy Verified 03/30/18 20:47 - Home Medications Home Medications: Ambulatory Orders Diphenoxylate 2.5/Atropine.025 [Lomotil -] 1 combo PO Q6H 03/31/18 Enoxaparin [Lovenox -] 40 mg SQ BID 03/31/18 Loperamide HCl [Imodium -] 8 mg PO QID 03/31/18 Ondansetron [Zofran -] 4 mg PO Q6H PRN 03/31/18 Pantoprazole Sodium [Protonix -] 40 mg PO DAILY 03/31/18 Family Disease History - Family Disease History Family Disease History: Other: Father (Alive, healthy), Mother ( : 54: BCA / Uterine CA), Brother (None), Sister (None), Son (None), Daughter (None) Physical Exam- Vital Signs: Vital Signs Temperature 97.7 F 04/01/18 05:02 Pulse Rate 84 04/01/18 05:02 Respiratory Rate 20 04/01/18 05:02 Blood Pressure 111/77 04/01/18 05:02 O2 Sat by Pulse Oximetry (%) 96 03/31/18 21:00 Constitutional: Yes: Anxious, Mild Distress Eyes: Yes: WNL, Conjunctiva Clear, EOM Intact HENT: Yes: WNL, Atraumatic, Normocephalic Neck: Yes: WNL, Supple, Trachea Midline Cardiovascular: Yes: Regular Rate and Rhythm Respiratory: Yes: Regular Gastrointestinal: Yes: Soft Renal/: Yes: CVA Tenderness - Right Kidneys: Yes: FLank Pain Right Pelvis: Yes: Bladder Non Palpable Labs: CBC, BMP 04/01/18 07:00 04/01/18 07:00 Imaging - Results Cat Scan: Report Reviewed Ultrasound: Report Reviewed (no hydronephrosis or stones/no evidence of clot or urinary retention) Assessment/Plan imp C Diff infection gross hematuria dvt on lovenox plan observe and hydrate pain management as needed follow urine culture thought ua was not suspicious for infection will schedule outpatient cystoscopy
[2018-04-01] MEDS: methylPREDNISolone NA SUCC 40 MG/1 ML VIAL IVPUSH SCH (09:39)
[2018-04-01] MEDS: ENOXAPARIN NA (PORCINE) 40 MG/0.4 ML DISP.SYRIN SQ SCH ×2 (09:39→21:31)
[2018-04-01] MEDS: SODIUM CHLORIDE 1,000 ML IV SCH (11:28)
--- NOTE | 2018-04-01 12:58 | CONSULT ---
Consult Consult Specialty:: Rheumatology - History of Present Illness History of Present Illness: 42 yo Female with hisotry of Crohn's disease with secondary inflammatory arthritis, kidney stones x2(2008, 9mm s/p lithotripsy/stent), appendectomy, cholecysectomy, femoral to IVC thrombosis w/ PE x2 s/p IVC filter (07/2017), admitted with flare-up of colitis and arthritis. HPI. The patient has Crohn's disease since age 20. She had totsl colectomy in 2012 and had two ileostomies , the last was reversed on January 2018. She has been treated in the past with Azacol, Sulfasalazine (07/28-01/27), steroids and it was considered she should be started on Humira, however she has not have insurance work-up. One year ago she developed arthralgia in elbows, hands and right lateral aspect of the pelvis. The pain is worse in the morning, it improves with activity and occasionally she has morning stiffness. On Ap[ril 2017 she develpoped a clot extending form femroal vein to IVC and had PEs. Apparently hypercoagulable etiologies were ruled out. She had and IVC filter that was later on removed and she is on Lovanox. Her mother and maternal grandmother had Crohn's disease. On this occasion she has a 3 day history of flar-up of colitis with frequent BM and progression of joint pain. he improved partially in the hospital with IV steroids and she is NPO. - History Source History Provided By: Patient, Medical Record - Past Medical History Cardio/Vascular: Yes: Deep Vein Thrombosis Gastrointestinal: Yes: Crohn's Disease (Large bowel s/p total colectomy ) Renal/: Yes: Renal Calculi - Past Surgical History Past Surgical History: Yes: Appendectomy, Cholecystectomy, Colectomy (Totsl), Ileosotomy (x 2 with recent reversal 01/27) - Alcohol/Substance Use Hx Alcohol Use: No History of Substance Use: reports: None - Smoking History Smoking history: Never smoked Have you smoked in the past 12 months: No - Social History Usual Living Arrangement: Alone ADL: Independent 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[place] History of Recent Travel: No Home Medications - Allergies Allergies/Adverse Reactions: Allergies Allergy/AdvReac Type Severity Reaction Status Date / Time aspirin Allergy Verified 03/30/18 20:47 Iodine and Iodide Containing Allergy Verified 03/31/18 00:17 Produc metoclopramide [From Reglan] Allergy Verified 03/30/18 20:47 morphine Allergy Verified 03/30/18 20:47 Penicillins Allergy Verified 03/30/18 20:47 shellfish derived Allergy Verified 03/30/18 20:47 - Home Medications Home Medications: Ambulatory Orders Diphenoxylate 2.5/Atropine.025 [Lomotil -] 1 combo PO Q6H 03/31/18 Enoxaparin [Lovenox -] 40 mg SQ BID 03/31/18 Loperamide HCl [Imodium -] 8 mg PO QID 03/31/18 Ondansetron [Zofran -] 4 mg PO Q6H PRN 03/31/18 Pantoprazole Sodium [Protonix -] 40 mg PO DAILY 03/31/18 Family Disease History - Family Disease History Family Disease History: Other: Father (Alive, healthy), Mother ( : 54: BCA / Uterine CA), Brother (None), Sister (None), Son (None), Daughter (None) Review of Systems - Review of Systems Constitutional: reports: Malaise Eyes: reports: No Symptoms HENT: reports: No Symptoms Neck: reports: No Symptoms Cardiovascular: reports: No Symptoms Respiratory: reports: No Symptoms Gastrointestinal: reports: Other (See HPI) Neurological: reports: Other (See HPI) Physical Exam Vital Signs: Vital Signs Temperature 98.5 F 04/01/18 10:56 Pulse Rate 88 04/01/18 10:56 Respiratory Rate 20 04/01/18 10:56 Blood Pressure 110/60 04/01/18 10:56 O2 Sat by Pulse Oximetry (%) 96 04/01/18 09:00 Constitutional: Yes: Moderate Distress Eyes: Yes: WNL HENT: Yes: WNL Neck: Yes: WNL Cardiovascular: Yes: WNL Respiratory: Yes: WNL Gastrointestinal: Yes: Other (Diffuse abdominal tenderoness with no masses and no rebound.) Musculoskeletal: Yes: Other (Tenderness in the right elbow MCPs, PIPs and right sacro-iliac joint. Swelling of both wrists, MCPs and PIPs.) Labs: CBC, BMP 04/01/18 07:00 04/01/18 07:00 Laboratory Tests 03/30/18 03/31/18 03/31/18 22:55 00:05 08:20 ESR 43 H Random Glucose 126 H Calcium 8.6 Phosphorus 3.5 Magnesium 1.6 L Total Bilirubin 0.2 AST 29 ALT 43 Alkaline Phosphatase 133 H Total Protein 6.4 Albumin 3.5 TSH 0.61 Urine Color Red Urine Appearance Cloudy Urine pH 6.0 Urine Protein 2+ H Urine Glucose (UA) Negative Urine Ketones Negative Urine Blood 3+ H Urine Nitrite Negative Urine Bilirubin Negative Urine Urobilinogen Negative Ur Leukocyte Esterase Trace Urine WBC (Auto) 746 Urine RBC (Auto) 1026 Urine Mucus Rare Problem List - Problems (1) Enteropathic arthropathies of multiple sites Assessment/Plan: Active arthritis secondary to Crohn's disease with sacro-iliac involvement. Plan X rays of pelvis. As soon as she is started on PO start Sulfasalazine 1 gr BID and as soonas she is discharged I will start Humira - in addition to the Sulfasalazine. Code(s): M07.69 - ENTEROPATHIC ARTHROPATHIES, MULTIPLE SITES (2) Crohns disease Code(s): K50.90 - CROHN'S DISEASE, UNSPECIFIED, WITHOUT COMPLICATIONS Qualifiers: Gastrointestinal tract location: unspecified location Digestive disease complication type: unspecified complication Qualified Code(s): K50.919 - Crohn 's disease, unspecified, with unspecified complications
[2018-04-01] MEDS ORDERED: HYDROmorphone HCl 2 MG/ML VIAL IVPUSH PRN (14:05)
--- NOTE | 2018-04-01 16:37 | PN ---
Physical Exam: SUBJECTIVE: Patient seen and examined at bedside this morning. Patient reported 1 episode of bilious vomiting, and 4 episodes of greenish, loose watery stools overnight. She still reports pain with her finger joints. Otherwise, she reports feeling better overall today. OBJECTIVE: Vital Signs Period Temp Pulse Resp BP Sys/Newton Pulse Ox Last 24 Hr 97.7 F-98.5 F 84-97 18-20 98-111/60-77 96-96 GENERAL: The patient is awake, alert, and fully oriented, in no acute distress. HEAD: Normal with no signs of trauma. EYES: PERRLA, EOMI, sclera anicteric, pale conjunctivae. ENT: Ears normal, nares patent, oropharynx clear without exudates, dry mucous membranes. NECK: Trachea midline, full range of motion, supple. LUNGS: Breath sounds equal, clear to auscultation bilaterally. HEART: Regular rate and rhythm, S1, S2 without murmur, rub or gallop. ABDOMEN: Soft, +diffuse tenderness, nondistended, normoactive bowel sounds. EXTREMITIES: 2+ pulses, warm, well-perfused, no edema. B/l UE: +tenderness and swelling of fingers NEUROLOGICAL: Cranial nerves II through XII grossly intact. Normal speech, gait not observed. PSYCH: Normal mood, normal affect. SKIN: Warm, dry, normal turgor, no rashes or lesions noted Laboratory Results - last 24 hr 03/31/18 04/01/18 04/01/18 19:02 07:00 07:00 WBC 7.1 RBC 3.51 L Hgb 10.1 L Hct 29.4 L MCV 83.7 MCH 28.7 MCHC 34.3 RDW 12.9 Plt Count 353 MPV 8.0 Absolute Neuts (auto) 4.3 Neutrophils % 61.3 D Lymphocytes % 30.6 D Monocytes % 6.2 D Eosinophils % 1.3 D Basophils % 0.6 Nucleated RBC % 0 Sodium 141 Potassium 3.9 Chloride 104 Carbon Dioxide 30 Anion Gap 8 BUN 8 Creatinine 0.6 Creat Clearance w eGFR > 60 Random Glucose 88 Calcium 8.9 Phosphorus 3.8 Magnesium 2.2 Fungal Cult Result 2 Roofing Applicator Active Medications Generic Name Dose Route Start Last Admin Trade Name Freq PRN Reason Stop Dose Admin Diphenhydramine HCl 25 mg 04/01/18 14:08 04/01/18 15:07 Benadryl Injection - IVPUSH 25 mg Q4H PRN Administration FOR ITCHING Enoxaparin Sodium 40 mg 03/31/18 10:00 04/01/18 09:39 Lovenox - SQ 40 mg BID EVELYN Administration Hydromorphone HCl 0.5 mg 04/01/18 14:09 04/01/18 16:01 Dilaudid Vial - IVPUSH 0.5 mg Q4H PRN Administration PAIN LEVEL 6-10 Sodium Chloride 1,000 mls @ 100 mls/hr 04/01/18 11:30 04/01/18 11:28 Normal Saline - IV 100 mls/hr ASDIR EVELYN Administration Methylprednisolone Sodium Succinate 60 mg 04/01/18 10:00 04/01/18 09:39 Solu-Medrol - IVPUSH 60 mg DAILY EVELYN Administration ASSESSMENT/PLAN: Patient is a 42 year old female with past medical history of kidney stones x2 (s /p lithotripsy/stent, 2008), appendectomy , cholecystectomy, 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 #Nausea, vomiting, diarrhea: likely 2/2 Crohn's disease vs acute gastroenteritis vs SBO -CT AP: s/p multiple abdominal surgeries with no evidence of bowel obstruction or acute pathology within the abdomen or pelvis. -GI (Dr. Ann) consulted. Recommendations appreciated. -With her complicated IBD history, patient would benefit to be managed at [facility] where her care and interventions has been done. Patient expresses to wait and see if things get better. -Supportive measures for now. -NPO -Continue IV hydration -Stool for culture, C. Diff, O&P, calprotectin pending -If no improvement, transfer to [facility] for further evaluation. #Hematuria: ?hemorrhagic vs proteinaceous cyst -UA: 3+ blood, 2+protein, trace LE, 746 WBC, 1026 RBC -CT AP: Hyperdense renal masses possibly representing cysts. -Renal US: morphologically normal kidneys with no evidence of nephrolithiasis, hydronephrosis, or acute pathology. The small right renal cyst does correspond to the hyperdense mass noted on the recent CT scan. The hypodense left renal mass could not be identified on the sonogram. -Nephrology (Dr. Roy) consulted. Recommendations appreciated. -continue fluids -monitor urine output -repeat labs in the morning -Patient is on Lovenox for DVTs/PE. -Urology (Dr. Day) consulted. Recommendations appreciated. -pain management as needed -follow urine culture thought ua was not suspicious for infection -will schedule outpatient cystoscopy #Polyarthritis: likely 2/2 Crohn's disease -Rheumatology (Dr. Monsivais) consulted. Recommendations appreciated. -Active arthritis 2/2 Crohn's disease with sacro-iliac involvement -X-rays of pelvis -As soon as patient is started on PO, will start Sulfasalazine 1 gr BID -On discharge,will start Humira - in addition to the Sulfasalazine. #FEN -IV NS @ 100 -Electrolytes wnl -routine bmp monitoring -NPO #Prophylaxis -Lovenox 40mg sq BID #Disposition -full code -med-surg Visit type - Emergency Visit Emergency Visit: Yes ED Registration Date: 03/31/18 Care time: The patient presented to the Emergency Department on the above date and was hospitalized for further evaluation of their emergent condition. - New Patient This patient is new to me today: No - Critical Care Critical Care patient: No
--- NOTE | 2018-04-01 17:24 | PN ---
Teaching Attending Note Name of Resident: Yary Arredondo ATTENDING PHYSICIAN STATEMENT I saw and evaluated the patient. I reviewed the resident's note and discussed the case with the resident. I agree with the resident's findings and plan as documented. SUBJECTIVE: Patient continues to throw up and continues to have diarrhea. OBJECTIVE: Vital Signs Temperature 98.1 F 04/01/18 16:30 Pulse Rate 105 H 04/01/18 16:30 Respiratory Rate 20 04/01/18 16:30 Blood Pressure 94/54 L 04/01/18 16:30 O2 Sat by Pulse Oximetry (%) 96 04/01/18 09:00 GENERAL: AOX3, weak in pain HEAD: NCAT, EYES: extraocular movements intact, sclera anicteric, conjunctiva clear. EARS, NOSE, THROAT: Ears normal, oropharynx clear without exudates. dry mucous membranes. NECK: Normal range of motion, supple without lymphadenopathy, JVD, or masses. LUNGS: CTAB. Left chest port. HEART: RRR, normal S1 and S2 without murmur, rub or gallop. ABDOMEN: Soft, diffuse lower abdomen mild tenderness , positive for BS , no guarding, no rebound, no masses. positive for surgical scars EXTREMITIES: 2+ pulses, warm, well-perfused. Swollen finger joints of upper NEUROLOGICAL: Cranial nerves II-XII intact. Normal speech. SKIN: Warm, dry, normal turgor, no rashes or lesions noted, normal capillary refill. CBCD WBC 7.1 K/mm3 (4.0-10.0) 04/01/18 07:00 RBC 3.51 M/mm3 (3.60-5.2) L 04/01/18 07:00 Hgb 10.1 GM/dL (10.7-15.3) L 04/01/18 07:00 Hct 29.4 % (32.4-45.2) L 04/01/18 07:00 MCV 83.7 fl (80-96) 04/01/18 07:00 MCHC 34.3 g/dl (32.0-36.0) 04/01/18 07:00 RDW 12.9 % (11.6-15.6) 04/01/18 07:00 Plt Count 353 K/MM3 (134-434) 04/01/18 07:00 MPV 8.0 fl (7.5-11.1) 04/01/18 07:00 CMP Sodium 141 mmol/L (136-145) 04/01/18 07:00 Potassium 3.9 mmol/L (3.5-5.1) 04/01/18 07:00 Chloride 104 mmol/L (98-107) 04/01/18 07:00 Carbon Dioxide 30 mmol/L (21-32) 04/01/18 07:00 Anion Gap 8 MMOL/L (8-16) 04/01/18 07:00 BUN 8 mg/dL (7-18) 04/01/18 07:00 Creatinine 0.6 mg/dL (0.55-1.3) 04/01/18 07:00 Creat Clearance w eGFR > 60 (>60) 04/01/18 07:00 Random Glucose 88 mg/dL (74-106) 04/01/18 07:00 Calcium 8.9 mg/dL (8.5-10.1) 04/01/18 07:00 Total Bilirubin 0.2 mg/dL (0.2-1) 03/31/18 08:20 AST 29 U/L (15-37) 03/31/18 08:20 ALT 43 U/L (13-61) 03/31/18 08:20 Alkaline Phosphatase 133 U/L (45-117) H 03/31/18 08:20 Total Protein 6.4 g/dl (6.4-8.2) 03/31/18 08:20 Albumin 3.5 g/dl (3.4-5.0) 03/31/18 08:20 Current Medications Generic Name Dose Route Start Last Admin Trade Name Freq PRN Reason Stop Dose Admin Diphenhydramine HCl 25 mg 04/01/18 14:08 04/01/18 15:07 Benadryl Injection - IVPUSH 25 mg Q4H PRN Administration FOR ITCHING Enoxaparin Sodium 40 mg 03/31/18 10:00 04/01/18 09:39 Lovenox - SQ 40 mg BID EVELYN Administration Hydromorphone HCl 0.5 mg 04/01/18 14:09 04/01/18 16:01 Dilaudid Vial - IVPUSH 0.5 mg Q4H PRN Administration PAIN LEVEL 6-10 Sodium Chloride 1,000 mls @ 100 mls/hr 04/01/18 11:30 04/01/18 11:28 Normal Saline - IV 100 mls/hr ASDIR EVELYN Administration Methylprednisolone Sodium Succinate 60 mg 04/01/18 10:00 04/01/18 09:39 Solu-Medrol - IVPUSH 60 mg DAILY EVELYN Administration Home Medications Medication Instructions Recorded Diphenoxylate 2.5/Atropine.025 1 combo PO Q6H 03/31/18 [Lomotil -] Enoxaparin [Lovenox -] 40 mg SQ BID 03/31/18 Loperamide HCl [Imodium -] 8 mg PO QID 03/31/18 Ondansetron [Zofran -] 4 mg PO Q6H PRN 03/31/18 Pantoprazole Sodium [Protonix -] 40 mg PO DAILY 03/31/18 Evaluation of the lung bases demonstrates platelike atelectasis within the right lower lobe. There are small hyperdense masses within both kidneys. This includes an 11 mm mass within the upper pole of the right kidney and an 8 mm mass within the lower pole of the left kidney. These may represent hyperdense cysts. Sonographic follow-up is recommended. The liver, spleen, pancreas and adrenal glands demonstrate no significant abnormalities. The gallbladder has been removed. There is no evidence of intra-abdominal or retroperitoneal lymphadenopathy or fluid collections. There is no evidence of pneumoperitoneum, bowel obstruction or intra-abdominal abscess. The patient is S/P abdominal surgery with suture lines within the right lower quadrant and pelvis. Surgical clips are identified throughout the abdomen and pelvis. Clinical correlation as to the nature of these procedures is recommended. Examination of the pelvis demonstrates no evidence of pelvic masses, fluid collections or lymphadenopathy. IMPRESSION: 1. Hyperdense renal masses possibly representing cysts. Sonographic follow-up recommended. 2. S/P multiple abdominal surgeries with no evidence of bowel obstruction or acute pathology within the abdomen or pelvis. Please see above discussion. Reported By: Vitor Orlando MD 03/31/18821 Technologist: Letitia Anthony Transcribed Date/Time: 03/31/18821 Building Energy Consultant: Vitor Orlando Printed Date/Time. 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 #Acute Nausea/Vomiting and Diarrhea continues, patient does not want to get transferred to [facility] at this time. s/p as per patient : post reversal of the colostomy increased her diarrhea, patient Takes Imodium and Lomotil daily at home but does not help. Will hold the Zofran since her QTc is in 479's. Gi consulted, as per patient Benadryl helps her nausea and vomiting. will place her on Benadryl 12.5 mg q4hr prn, and dilaudid prn continue IVF if patient does not improve will try to transfer the patient to [facility] in am. #Right renal hemorrhagic hyperdense mass/ proteinaceous cyst, monitor H/H and hematuria, Urology consult Dr. Owusu seen the patient and would follow with the patient as an outpatient. 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 As per 's plan: Plan X rays of pelvis. As soon as she is started on PO start Sulfasalazine 1 gr BID and as soon as she is discharged I will start Humira - in addition to the Sulfasalazine. # Hx of PE: brenda continue lovenox therapy for now, since patient has a hypercoaguable state.will get Pulmonary to see the patient. as per GI at per pt, prior CT in 07/2017 showed no cyst #DVT Px: Lovenox 40 mg SQ BID for remote PE.
--- NOTE | 2018-04-01 18:28 | PN ---
GI Progress Note Subjective: Sitting up in chair. Became tearful when talking about her medical condition Loose BM's reported Requiring frequent dilaudid for pain management Seen by rheumatology: Planned for sulfasalazine along with Humira - Objective Vital Signs: Vital Signs Temperature 98.1 F 04/01/18 16:30 Pulse Rate 105 H 04/01/18 16:30 Respiratory Rate 20 04/01/18 16:30 Blood Pressure 94/54 L 04/01/18 16:30 O2 Sat by Pulse Oximetry (%) 96 04/01/18 09:00 Constitutional: Calm Eyes: No: Sclera Icterus Cardiovascular: Yes: Tachycardia Respiratory: Yes: CTA Bilaterally Gastrointestinal Inspection: Yes: Scars ...Auscultate: Yes: Normoactive Bowel Sounds ...Palpate: Yes: Soft, Tenderness (TTP at ileostomy scar) ...Percussion: No: Tympanitic Edema: No (No LE edema) Labs: CBC, BMP 04/01/18 07:00 04/01/18 07:00 Hepatic Panel Total Bilirubin 0.2 mg/dL (0.2-1) 03/31/18 08:20 AST 29 U/L (15-37) 03/31/18 08:20 ALT 43 U/L (13-61) 03/31/18 08:20 Alkaline Phosphatase 133 U/L (45-117) H 03/31/18 08:20 Albumin 3.5 g/dl (3.4-5.0) 03/31/18 08:20 Problem List - Problems (1) Nausea vomiting and diarrhea Assessment/Plan: No vomiting + Diarrhea Unclear if this is a Crohn's flare. While having joint involvement, TI Peripheral arthropathy is associated with crohn's activity while type 2 is independent. Apparently no small bowel involvement per patient during evaluation at [facility] and patient had total colectomy. Also, abdominal pain out of proportion to CT scan findings. pain is diffuse however mostly at ileostomy scar. Advise: NPO except meds IV hydration Continued supportive measures Await stool culture / O&P. Calprotectin If significant abdominal pain persists, consider surgical evaluation Abnormal UA and CT scan findings being evaluated by urology. Would be best served to continue care where recent abdominal surgery and care of her IBD has been initiated. If she choses not to follow-up at [facility], given the complicated nature of her disease and comorbidities, I would advise plugging her into another IBD center such as [facility]. Dr. Lovett will be covering the weekend Code(s): R11.2 - NAUSEA WITH VOMITING, UNSPECIFIED; R19.7 - DIARRHEA, UNSPECIFIED
--- NOTE | 2018-04-01 19:06 | PN ---
Progress Note, Physician History of Present Illness: Pt seen and examined at bedside. She still has diarrhea and is nauseated. She is still not eating. - Current Medication List Current Medications: Active Medications Diphenhydramine HCl (Benadryl Injection -) 25 mg IVPUSH Q4H PRN PRN Reason: FOR ITCHING Last Admin: 04/01/18 15:07 Dose: 25 mg Enoxaparin Sodium (Lovenox -) 40 mg SQ BID [facility] Last Admin: 04/01/18 09:39 Dose: 40 mg Hydromorphone HCl (Dilaudid Vial -) 0.5 mg IVPUSH Q4H PRN PRN Reason: PAIN LEVEL 6-10 Last Admin: 04/01/18 16:01 Dose: 0.5 mg Sodium Chloride (Normal Saline -) 1,000 mls @ 100 mls/hr IV ASDIR [facility] Last Admin: 04/01/18 11:28 Dose: 100 mls/hr Methylprednisolone Sodium Succinate (Solu-Medrol -) 60 mg IVPUSH DAILY [facility] Last Admin: 04/01/18 09:39 Dose: 60 mg - Objective Vital Signs: Vital Signs Temperature 98.1 F 04/01/18 16:30 Pulse Rate 105 H 04/01/18 16:30 Respiratory Rate 20 04/01/18 16:30 Blood Pressure 94/54 L 04/01/18 16:30 O2 Sat by Pulse Oximetry (%) 96 04/01/18 09:00 Constitutional: Yes: Calm Eyes: Yes: Conjunctiva Clear HENT: Yes: Atraumatic Neck: Yes: Supple Cardiovascular: Yes: S1, S2 Respiratory: Yes: CTA Bilaterally Gastrointestinal: Yes: Other (diarrhea) Genitourinary: Yes: WNL, Hematuria Musculoskeletal: Yes: WNL Edema: No Neurological: Yes: Oriented Psychiatric: Yes: Oriented Labs: CBC, BMP 04/01/18 07:00 04/01/18 07:00 Problem List - Problems (1) Abdominal pain Code(s): R10.9 - UNSPECIFIED ABDOMINAL PAIN Qualifiers: Abdominal location: unspecified location Qualified Code(s): R10.9 - Unspecified abdominal pain (2) Crohns disease Code(s): K50.90 - CROHN'S DISEASE, UNSPECIFIED, WITHOUT COMPLICATIONS Qualifiers: Gastrointestinal tract location: unspecified location Digestive disease complication type: unspecified complication Qualified Code(s): K50.919 - Crohn 's disease, unspecified, with unspecified complications (3) Nausea vomiting and diarrhea Code(s): R11.2 - NAUSEA WITH VOMITING, UNSPECIFIED; R19.7 - DIARRHEA, UNSPECIFIED Assessment/Plan Current Medications Generic Name Dose Route Start Last Admin Trade Name Freq PRN Reason Stop Dose Admin Diphenhydramine HCl 25 mg 04/01/18 14:08 04/01/18 15:07 Benadryl Injection - IVPUSH 25 mg Q4H PRN Administration FOR ITCHING Enoxaparin Sodium 40 mg 03/31/18 10:00 04/01/18 09:39 Lovenox - SQ 40 mg BID EVELYN Administration Hydromorphone HCl 0.5 mg 04/01/18 14:09 04/01/18 16:01 Dilaudid Vial - IVPUSH 0.5 mg Q4H PRN Administration PAIN LEVEL 6-10 Sodium Chloride 1,000 mls @ 100 mls/hr 04/01/18 11:30 04/01/18 11:28 Normal Saline - IV 100 mls/hr ASDIR EVELYN Administration Methylprednisolone Sodium Succinate 60 mg 04/01/18 10:00 04/01/18 09:39 Solu-Medrol - IVPUSH 60 mg DAILY EVELYN Administration Impression 1. hematuria 2. renal mass vs cyst 3. crohns disease 4. hx of DVT 5. vomiting 6. diarrhea 7. hx nephrolithiasis Plan - cont fluids - persistent hematuria - urology input appreciated, will need cysto - monitor lytes - pt still not eating - rheum input appreciated Dr Roy
[2018-04-02] MEDS: SODIUM CHLORIDE 1,000 ML IV SCH ×3 (00:50→14:10)
[2018-04-02] MEDS: HYDROmorphone HCl 2 MG/ML VIAL IVPUSH PRN ×6 (00:50→21:05)
[2018-04-02 07:26] LABS: HEMATOCRIT 29.7 % (32.4-45.2); HEMOGLOBIN 9.7 GM/dL (10.7-15.3); MCH 27.5 pg (25.7-33.7); MCHC 32.6 g/dl (32.0-36.0); MEAN CELL VOLUME 84.3 fl (80-96); MEAN PLT VOLUME 7.6 fl (7.5-11.1); PLATELET COUNT 319 K/MM3 (134-434); RBC 3.52 M/mm3 (3.60-5.2); RDW 12.5 % (11.6-15.6); WHITE BLOOD COUNT 8.2 K/mm3 (4.0-10.0)
[2018-04-02 08:49] LABS: ANION GAP 9 MMOL/L (8-16); BLOOD UREA NITROGEN 11 mg/dL (7-18); CALCIUM 8.2 mg/dL (8.5-10.1); CHLORIDE 108 mmol/L (98-107); CO2 24 mmol/L (21-32); CREATININE 0.6 mg/dL (0.55-1.3); GLUCOSE,RANDOM 93 mg/dL (74-106); PHOSPHOROUS 4.6 mg/dL (2.5-4.9); POTASSIUM 3.4 mmol/L (3.5-5.1); SODIUM 140 mmol/L (136-145)
[2018-04-02] MEDS: methylPREDNISolone NA SUCC 40 MG/1 ML VIAL IVPUSH SCH (10:17)
[2018-04-02] MEDS: ENOXAPARIN NA (PORCINE) 40 MG/0.4 ML DISP.SYRIN SQ SCH ×2 (10:17→21:12)
[2018-04-02 11:55] LABS: URINE BILIRUBIN NEGATIVE (<2.0 mg/dL); URINE COLOR RED; URINE GLUCOSE (UA) NEGATIVE (NEGATIVE); URINE KETONE NEGATIVE (NEGATIVE); URINE LEUK ESTERASE NEGATIVE (NEGATIVE); URINE NITRITE NEGATIVE (NEGATIVE); URINE PROTEIN 2+ (NEGATIVE); URINE UROBILINOGEN NEGATIVE mg/dL (0.2-1.0)
[2018-04-02 11:57] LABS: URINE APPEARANCE BLOODY
[2018-04-02 12:16] LABS: CALCIUM OXALATE CRYSTALS MANY /hpf (NONE SEEN); EPI CELLS MODERATE /HPF (FEW); URINE BACTERIA MODERATE /hpf (NONE SEEN); URINE MUCUS MANY
--- NOTE | 2018-04-02 16:55 | PN ---
Teaching Attending Note Name of Resident: Yary Arredondo ATTENDING PHYSICIAN STATEMENT I saw and evaluated the patient. I reviewed the resident's note and discussed the case with the resident. I agree with the resident's findings and plan as documented. SUBJECTIVE: Patient is feeling better with no acute distress. continues to have nausea and vomiting with diarrhea. OBJECTIVE: Vital Signs Temperature 97.9 F 04/02/18 11:23 Pulse Rate 100 H 04/02/18 11:23 Respiratory Rate 18 04/02/18 11:23 Blood Pressure 92/64 04/02/18 11:23 O2 Sat by Pulse Oximetry (%) 96 04/02/18 09:00 GENERAL: AOX3, weak in pain HEAD: NCAT, EYES: extraocular movements intact, sclera anicteric, conjunctiva clear. EARS, NOSE, THROAT: Ears normal, oropharynx clear without exudates. dry mucous membranes. NECK: Normal range of motion, supple without lymphadenopathy, JVD, or masses. LUNGS: CTAB. Left chest port. HEART: RRR, normal S1 and S2 without murmur, rub or gallop. ABDOMEN: Soft, diffuse lower abdomen mild tenderness , positive for BS , no guarding, no rebound, no masses. positive for surgical scars EXTREMITIES: 2+ pulses, warm, well-perfused. Swollen finger joints of upper NEUROLOGICAL: Cranial nerves II-XII intact. Normal speech. SKIN: Warm, dry, normal turgor, no rashes or lesions noted, normal capillary refill. CBCD WBC 8.2 K/mm3 (4.0-10.0) 04/02/18 06:30 RBC 3.52 M/mm3 (3.60-5.2) L 04/02/18 06:30 Hgb 9.7 GM/dL (10.7-15.3) L 04/02/18 06:30 Hct 29.7 % (32.4-45.2) L 04/02/18 06:30 MCV 84.3 fl (80-96) 04/02/18 06:30 MCHC 32.6 g/dl (32.0-36.0) 04/02/18 06:30 RDW 12.5 % (11.6-15.6) 04/02/18 06:30 Plt Count 319 K/MM3 (134-434) 04/02/18 06:30 MPV 7.6 fl (7.5-11.1) 04/02/18 06:30 CMP Sodium 140 mmol/L (136-145) 04/02/18 06:30 Potassium 3.4 mmol/L (3.5-5.1) L 04/02/18 06:30 Chloride 108 mmol/L (98-107) H 04/02/18 06:30 Carbon Dioxide 24 mmol/L (21-32) 04/02/18 06:30 Anion Gap 9 MMOL/L (8-16) 04/02/18 06:30 BUN 11 mg/dL (7-18) 04/02/18 06:30 Creatinine 0.6 mg/dL (0.55-1.3) 04/02/18 06:30 Creat Clearance w eGFR > 60 (>60) 04/02/18 06:30 Random Glucose 93 mg/dL (74-106) 04/02/18 06:30 Calcium 8.2 mg/dL (8.5-10.1) L 04/02/18 06:30 Total Bilirubin 0.2 mg/dL (0.2-1) 03/31/18 08:20 AST 29 U/L (15-37) 03/31/18 08:20 ALT 43 U/L (13-61) 03/31/18 08:20 Alkaline Phosphatase 133 U/L (45-117) H 03/31/18 08:20 Total Protein 6.4 g/dl (6.4-8.2) 03/31/18 08:20 Albumin 3.5 g/dl (3.4-5.0) 03/31/18 08:20 Current Medications Generic Name Dose Route Start Last Admin Trade Name Freq PRN Reason Stop Dose Admin Diphenhydramine HCl 25 mg 04/01/18 14:08 04/02/18 14:09 Benadryl Injection - IVPUSH 25 mg Q4H PRN Administration FOR ITCHING Enoxaparin Sodium 40 mg 03/31/18 10:00 04/02/18 10:17 Lovenox - SQ 40 mg BID EVELYN Administration Hydromorphone HCl 0.5 mg 04/01/18 14:09 04/02/18 14:09 Dilaudid Vial - IVPUSH 0.5 mg Q4H PRN Administration PAIN LEVEL 6-10 Sodium Chloride 1,000 mls @ 100 mls/hr 04/01/18 11:30 04/02/18 14:10 Normal Saline - IV Not Given ASDIR EVELYN Methylprednisolone Sodium Succinate 60 mg 04/01/18 10:00 04/02/18 10:17 Solu-Medrol - IVPUSH 60 mg DAILY EVELYN Administration Home Medications Medication Instructions Recorded Diphenoxylate 2.5/Atropine.025 1 combo PO Q6H 03/31/18 [Lomotil -] Enoxaparin [Lovenox -] 40 mg SQ BID 03/31/18 Loperamide HCl [Imodium -] 8 mg PO QID 03/31/18 Ondansetron [Zofran -] 4 mg PO Q6H PRN 03/31/18 Pantoprazole Sodium [Protonix -] 40 mg PO DAILY 03/31/18 Evaluation of the lung bases demonstrates platelike atelectasis within the right lower lobe. There are small hyperdense masses within both kidneys. This includes an 11 mm mass within the upper pole of the right kidney and an 8 mm mass within the lower pole of the left kidney. These may represent hyperdense cysts. Sonographic follow-up is recommended. The liver, spleen, pancreas and adrenal glands demonstrate no significant abnormalities. The gallbladder has been removed. There is no evidence of intra-abdominal or retroperitoneal lymphadenopathy or fluid collections. There is no evidence of pneumoperitoneum, bowel obstruction or intra-abdominal abscess. The patient is S/P abdominal surgery with suture lines within the right lower quadrant and pelvis. Surgical clips are identified throughout the abdomen and pelvis. Clinical correlation as to the nature of these procedures is recommended. Examination of the pelvis demonstrates no evidence of pelvic masses, fluid collections or lymphadenopathy. IMPRESSION: 1. Hyperdense renal masses possibly representing cysts. Sonographic follow-up recommended. 2. S/P multiple abdominal surgeries with no evidence of bowel obstruction or acute pathology within the abdomen or pelvis. Please see above discussion. Reported By: Vitor Orlando MD 03/31/18821 Technologist: Letitia Anthony Transcribed Date/Time: 03/31/18821 [employer]rigeration Service Technician: Vitor Orlando Printed Date/Time. 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 #Acute Nausea/Vomiting and Diarrhea continues, patient does not want to get transferred to [facility] .Patient was seen by and was added Flagyl IV daily. As per patient : post reversal of the colostomy increased her diarrhea, patient Takes Imodium and Lomotil daily at home but does not help. Will hold the Zofran since her QTc is in 479's. As per patient Benadryl helps her nausea and vomiting. will continue Benadryl 12.5 mg q4hr prn, and dilaudid 0.5mg q3h prn increased from 0.5mg from q4h , as per if she tolerates the diet , will discharge the patient in am. with follow visit with GI in [place]. #Right renal hemorrhagic hyperdense mass/ proteinaceous cyst, monitor H/H and hematuria, Urology consult Dr. Owusu seen the patient and would follow with the patient as an outpatient. 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 As per 's plan: Plan X rays of pelvis. As soon as she is started on PO start Sulfasalazine 1 gr BID and as soon as she is discharged I will start Humira - in addition to the Sulfasalazine. # Hx of PE: brenda continue lovenox therapy for now, since patient has a hypercoaguable state.will get Pulmonary to see the patient. as per GI at per pt, prior CT in 07/2017 showed no cyst #DVT Px: Lovenox 40 mg SQ BID for remote PE.
--- NOTE | 2018-04-02 16:55 | PN ---
GI Progress Note Subjective: GI NOte: Valery continues to have severe pain but tells me that he Benadryl is helping with her nausea and that her BMs are less frequent on steroids. She tells me that Cipro and Flagyl have been helpful in the past. I reviewed her past history which includes: - total colectomy with J pouch creation in 2012 at [facility] in 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 Howe at [facility] for ulcerations - recreation of J pouch by Dr. Howe at [facility] then subsequent 01/27 closure of ileostomy - Objective Vital Signs: Vital Signs Temperature 97.9 F 04/02/18 11:23 Pulse Rate 100 H 04/02/18 11:23 Respiratory Rate 18 04/02/18 11:23 Blood Pressure 92/64 04/02/18 11:23 O2 Sat by Pulse Oximetry (%) 96 04/02/18 09:00 Laboratory Tests 03/31/18 03/31/18 04/02/18 00:05 00:05 06:30 WBC 8.2 ESR 43 H BUN Creatinine C-Reactive Protein 0.7 H 04/02/18 06:30 WBC ESR BUN 11 Creatinine 0.6 C-Reactive Protein Constitutional: Anxious ...Auscultate: Yes: Hypoactive Bowel Sounds ...Palpate: Yes: Soft, Tenderness (at closed ileostomy site, no fluctuance) Labs: CBC, BMP 04/02/18 06:30 04/02/18 06:30 Problem List - Problems (1) Abdominal pain Assessment/Plan: Given the diarrhea and complex 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 Given the complex nature of her condition I have advised her to see Dr Katina Garza at [facility] ( [place]) where she once worked. She is agreeable to this. I will start Cipro and Flagyl and try clear liquids in the AM. Code(s): R10.9 - UNSPECIFIED ABDOMINAL PAIN Qualifiers: Abdominal location: unspecified location Qualified Code(s): R10.9 - Unspecified abdominal pain (2) Pouchitis Code(s): K91.850 - POUCHITIS (3) History of colectomy Code(s): Z90.49 - ACQUIRED ABSENCE OF OTHER SPECIFIED PARTS OF DIGESTIVE TRACT (4) DVT (deep venous thrombosis) Code(s): I82.409 - ACUTE EMBOLISM AND THOMBOS UNSP DEEP VN UNSP LOWER EXTREMITY (5) Pulmonary embolism Code(s): I26.99 - OTHER PULMONARY EMBOLISM WITHOUT ACUTE COR PULMONALE (6) Crohns disease Code(s): K50.90 - CROHN'S DISEASE, UNSPECIFIED, WITHOUT COMPLICATIONS Qualifiers: Gastrointestinal tract location: unspecified location Digestive disease complication type: unspecified complication Qualified Code(s): K50.919 - Crohn 's disease, unspecified, with unspecified complications (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
--- NOTE | 2018-04-02 17:17 | PN ---
Progress Note (short form) - Note Progress Note: covering dr galarza Problems 1. hematuria 2. renal mass vs cyst 3. crohns disease 4. hx of DVT 5. vomiting 6. diarrhea 7. hx nephrolithiasis Current Medications Diphenhydramine HCl (Benadryl Injection -) 25 mg IVPUSH Q4H PRN PRN Reason: FOR ITCHING Last Admin: 04/02/18 14:09 Dose: 25 mg Enoxaparin Sodium (Lovenox -) 40 mg SQ BID [facility] Last Admin: 04/02/18 10:17 Dose: 40 mg Hydromorphone HCl (Dilaudid Vial -) 0.5 mg IVPUSH Q4H PRN PRN Reason: PAIN LEVEL 6-10 Last Admin: 04/02/18 14:09 Dose: 0.5 mg Sodium Chloride (Normal Saline -) 1,000 mls @ 100 mls/hr IV ASDIR [facility] Last Admin: 04/02/18 14:10 Dose: Not Given Metronidazole (Flagyl 500mg Premixed Ivpb -) 500 mg in 100 mls @ 100 mls/hr IVPB Q8H-IV EVELYN Levofloxacin (Levaquin 500 Mg Premixed Ivpb -) 500 mg in 100 mls @ 100 mls/hr IVPB DAILY [facility] Methylprednisolone Sodium Succinate (Solu-Medrol -) 60 mg IVPUSH DAILY [facility] Last Admin: 04/02/18 10:17 Dose: 60 mg Last Vital Signs Temp Pulse Resp BP Pulse Ox 97.9 F 100 H 18 92/64 96 04/02/18 11:23 04/02/18 11:23 04/02/18 11:23 04/02/18 11:23 04/02/18 09:00 CBC, BMP 04/02/18 06:30 04/02/18 06:30 Plan - cont fluids - persistent hematuria - urology input appreciated, will need cysto - monitor lytes - pt still not eating - rheum input appreciated
[2018-04-03] MEDS: HYDROmorphone HCl 2 MG/ML VIAL IVPUSH PRN ×7 (00:04→21:21)
[2018-04-03] MEDS: SODIUM CHLORIDE 1,000 ML IV SCH (01:20)
--- NOTE | 2018-04-03 08:20 | PN ---
Teaching Attending Note Name of Resident: Yary Arredondo ATTENDING PHYSICIAN STATEMENT I saw and evaluated the patient. I reviewed the resident's note and discussed the case with the resident. I agree with the resident's findings and plan as documented. SUBJECTIVE: Patient continues to have severe abdominal pain with nausea and vomiting, and diarrhea. No fever or chills. OBJECTIVE: Vital Signs Temperature 98.5 F 04/03/18 06:36 Pulse Rate 95 H 04/03/18 06:36 Respiratory Rate 20 04/03/18 06:36 Blood Pressure 103/71 04/03/18 06:36 O2 Sat by Pulse Oximetry (%) 96 04/02/18 21:00 GENERAL: AOX3, HEAD: NCAT, EYES: extraocular movements intact, sclera anicteric, conjunctiva clear. EARS, NOSE, THROAT: Ears normal, oropharynx clear without exudates. dry mucous membranes. NECK: Normal range of motion, supple without lymphadenopathy, JVD, or masses. LUNGS: CTAB. Left chest port. HEART: RRR, normal S1 and S2 without murmur, rub or gallop. ABDOMEN: Soft, diffuse lower abdomen mild tenderness , positive for BS , positive for surgical scars EXTREMITIES: 2+ pulses, warm, well-perfused. improved joint fingers NEUROLOGICAL: Cranial nerves II-XII intact. Normal speech. SKIN: Warm, dry, normal turgor, no rashes or lesions noted, normal capillary refill. CBCD WBC 8.2 K/mm3 (4.0-10.0) 04/02/18 06:30 RBC 3.52 M/mm3 (3.60-5.2) L 04/02/18 06:30 Hgb 9.7 GM/dL (10.7-15.3) L 04/02/18 06:30 Hct 29.7 % (32.4-45.2) L 04/02/18 06:30 MCV 84.3 fl (80-96) 04/02/18 06:30 MCHC 32.6 g/dl (32.0-36.0) 04/02/18 06:30 RDW 12.5 % (11.6-15.6) 04/02/18 06:30 Plt Count 319 K/MM3 (134-434) 04/02/18 06:30 MPV 7.6 fl (7.5-11.1) 04/02/18 06:30 CMP Sodium 140 mmol/L (136-145) 04/02/18 06:30 Potassium 3.4 mmol/L (3.5-5.1) L 04/02/18 06:30 Chloride 108 mmol/L (98-107) H 04/02/18 06:30 Carbon Dioxide 24 mmol/L (21-32) 04/02/18 06:30 Anion Gap 9 MMOL/L (8-16) 04/02/18 06:30 BUN 11 mg/dL (7-18) 04/02/18 06:30 Creatinine 0.6 mg/dL (0.55-1.3) 04/02/18 06:30 Creat Clearance w eGFR > 60 (>60) 04/02/18 06:30 Random Glucose 93 mg/dL (74-106) 04/02/18 06:30 Calcium 8.2 mg/dL (8.5-10.1) L 04/02/18 06:30 Total Bilirubin 0.2 mg/dL (0.2-1) 03/31/18 08:20 AST 29 U/L (15-37) 03/31/18 08:20 ALT 43 U/L (13-61) 03/31/18 08:20 Alkaline Phosphatase 133 U/L (45-117) H 03/31/18 08:20 Total Protein 6.4 g/dl (6.4-8.2) 03/31/18 08:20 Albumin 3.5 g/dl (3.4-5.0) 03/31/18 08:20 Current Medications Generic Name Dose Route Start Last Admin Trade Name Freq PRN Reason Stop Dose Admin Diphenhydramine HCl 25 mg 04/01/18 14:08 04/03/18 06:37 Benadryl Injection - IVPUSH 25 mg Q4H PRN Administration FOR ITCHING Enoxaparin Sodium 40 mg 03/31/18 10:00 04/02/18 21:12 Lovenox - SQ 40 mg BID EVELYN Administration Hydromorphone HCl 0.5 mg 04/02/18 19:00 04/03/18 03:15 Dilaudid Vial - IVPUSH 0.5 mg Q3H PRN Administration PAIN LEVEL 6-10 Sodium Chloride 1,000 mls @ 100 mls/hr 04/01/18 11:30 04/03/18 01:20 Normal Saline - IV 100 mls/hr ASDIR EVELYN Administration Metronidazole 500 mg in 100 mls @ 100 mls/hr 04/02/18 18:00 04/03/18 01:19 Flagyl 500mg Premixed Ivpb - IVPB 100 mls/hr Q8H-IV EVELYN Administration Levofloxacin 500 mg in 100 mls @ 100 mls/hr 04/02/18 17:15 04/02/18 18:51 Levaquin 500 Mg Premixed Ivpb - IVPB 100 mls/hr DAILY EVELYN Administration Methylprednisolone Sodium Succinate 60 mg 04/01/18 10:00 04/02/18 10:17 Solu-Medrol - IVPUSH 60 mg DAILY EVELYN Administration Home Medications Medication Instructions Recorded Diphenoxylate 2.5/Atropine.025 1 combo PO Q6H 03/31/18 [Lomotil -] Enoxaparin [Lovenox -] 40 mg SQ BID 03/31/18 Loperamide HCl [Imodium -] 8 mg PO QID 03/31/18 Ondansetron [Zofran -] 4 mg PO Q6H PRN 03/31/18 Pantoprazole Sodium [Protonix -] 40 mg PO DAILY 03/31/18 Evaluation of the lung bases demonstrates platelike atelectasis within the right lower lobe. There are small hyperdense masses within both kidneys. This includes an 11 mm mass within the upper pole of the right kidney and an 8 mm mass within the lower pole of the left kidney. These may represent hyperdense cysts. Sonographic follow-up is recommended. The liver, spleen, pancreas and adrenal glands demonstrate no significant abnormalities. The gallbladder has been removed. There is no evidence of intra-abdominal or retroperitoneal lymphadenopathy or fluid collections. There is no evidence of pneumoperitoneum, bowel obstruction or intra-abdominal abscess. The patient is S/P abdominal surgery with suture lines within the right lower quadrant and pelvis. Surgical clips are identified throughout the abdomen and pelvis. Clinical correlation as to the nature of these procedures is recommended. Examination of the pelvis demonstrates no evidence of pelvic masses, fluid collections or lymphadenopathy. IMPRESSION: 1. Hyperdense renal masses possibly representing cysts. Sonographic follow-up recommended. 2. S/P multiple abdominal surgeries with no evidence of bowel obstruction or acute pathology within the abdomen or pelvis. Please see above discussion. Reported By: Vitor Orlando MD 03/31/18821 Technologist: Letitia Anthony Transcribed Date/Time: 03/31/18821 Scudding Inspector: Vitor Orlando Printed Date/Time. 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 #Acute Nausea/Vomiting and Diarrhea continues, patient does not want to get transferred to [facility] at this time.Patient was seen by and was added Flagyl IV daily. As per patient : post reversal of the colostomy increased her diarrhea, patient takes Imodium and Lomotil daily at home will continue but does not help. Will hold the Zofran since her QTc is in 479's. As per patient Benadryl helps her nausea and vomiting. will continue Benadryl 12.5 mg q4hr prn , and dilaudid 0.5mg q3h prn continue IVF if patient does not improve will try to transfer the patient to [facility] in am. #Right renal hemorrhagic hyperdense mass/ proteinaceous cyst, monitor H/H and hematuria, Urology consult Dr. Owusu seen the patient and would follow with the patient as an outpatient. 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 As soon as she starts on PO start her on Sulfasalazine 1 gr BID and as soon as she is discharged he will continue care for her and start the patient on Humira - in addition to the Sulfasalazine. # Hx of PE: brenda continue lovenox therapy for now, since patient has a hypercoaguable state. will get Pulmonary to see the patient. as per GI at per pt, prior CT in 07/2017 showed no cyst #DVT Px: Lovenox 40 mg SQ BID for remote PE.
[2018-04-03] MEDS: ENOXAPARIN NA (PORCINE) 40 MG/0.4 ML DISP.SYRIN SQ SCH ×2 (09:22→21:21)
[2018-04-03] MEDS: methylPREDNISolone NA SUCC 40 MG/1 ML VIAL IVPUSH SCH (09:23)
[2018-04-03] MEDS ORDERED: LOPERAMIDE HCL 2 MG CAPSULE PO PRN (10:00)
[2018-04-03] MEDS ORDERED: KCL 10 MEQ IVPB 10 MEQ/100 ML INFUS.BAG IVPB SCH (10:15)
--- NOTE | 2018-04-03 10:15 | PN ---
GI Progress Note Subjective: GI Note: Still having copious diarrhea but will try clear liquids. Will start oral imodium. Pain persists. - Objective Vital Signs: Vital Signs Temperature 98.5 F 04/03/18 06:36 Pulse Rate 95 H 04/03/18 06:36 Respiratory Rate 20 04/03/18 06:36 Blood Pressure 103/71 04/03/18 06:36 O2 Sat by Pulse Oximetry (%) 96 04/02/18 21:00 Laboratory Tests 04/02/18 06:30 Potassium 3.4 L Constitutional: Calm ...Auscultate: Yes: Hypoactive Bowel Sounds ...Palpate: Yes: Soft, Other (less tender) Labs: CBC, BMP 04/02/18 06:30 04/02/18 06:30 Assessment/Plan Crohn's pouchitis and/or ileitis Replace KCL Change to D5 1/2NS Imodium Decrease steroid dosing Problem List - Problems (1) Abdominal pain Assessment/Plan: Crohn's pouchitis and/or ileitis with diarrhea. Will start Imodium and trial of liquids. Will replace KCl and decrease the steroids Code(s): R10.9 - UNSPECIFIED ABDOMINAL PAIN Qualifiers: Abdominal location: unspecified location Qualified Code(s): R10.9 - Unspecified abdominal pain (2) Pouchitis Code(s): K91.850 - POUCHITIS (3) History of colectomy Code(s): Z90.49 - ACQUIRED ABSENCE OF OTHER SPECIFIED PARTS OF DIGESTIVE TRACT (4) DVT (deep venous thrombosis) Code(s): I82.409 - ACUTE EMBOLISM AND THOMBOS UNSP DEEP VN UNSP LOWER EXTREMITY (5) Pulmonary embolism Code(s): I26.99 - OTHER PULMONARY EMBOLISM WITHOUT ACUTE COR PULMONALE (6) Crohns disease Code(s): K50.90 - CROHN'S DISEASE, UNSPECIFIED, WITHOUT COMPLICATIONS Qualifiers: Gastrointestinal tract location: unspecified location Digestive disease complication type: unspecified complication Qualified Code(s): K50.919 - Crohn 's disease, unspecified, with unspecified complications (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
[2018-04-03] MEDS: D5-1/2NS+40 MEQ KCL - 40 MEQ/1,000 ML INFUS.BAG IV SCH ×2 (10:29→22:14)
[2018-04-03] MEDS: LOPERAMIDE HCL 2 MG CAPSULE PO PRN (10:45)
--- NOTE | 2018-04-03 12:51 | PN ---
Physical Exam: SUBJECTIVE: Patient seen and examined at bedside this morning. Patient reports she is still having the diarrhea with about 1.2L output. She still also is having nausea and LLQ/RLQ pain, and has been asking for benadryl and dilaudid round the clock. Patient reported she will try taking clear liquids today after taking the benadryl. OBJECTIVE: Vital Signs Period Temp Pulse Resp BP Sys/Newton Pulse Ox Last 24 Hr 97.2 F-98.5 F 85-111 18-20 103-113/56-71 96-96 GENERAL: The patient is awake, alert, and fully oriented, in no acute distress. HEAD: Normal with no signs of trauma. EYES: PERRLA, EOMI, sclera anicteric, pale conjunctivae. ENT: Ears normal, nares patent, oropharynx clear without exudates, dry mucous membranes. NECK: Trachea midline, full range of motion, supple. LUNGS: Breath sounds equal, clear to auscultation bilaterally. HEART: Regular rate and rhythm, S1, S2 without murmur, rub or gallop. ABDOMEN: Soft, +diffuse tenderness, nondistended, normoactive bowel sounds. EXTREMITIES: 2+ pulses, warm, well-perfused, no edema. B/l UE: +tenderness and swelling of fingers NEUROLOGICAL: Cranial nerves II through XII grossly intact. Normal speech, gait not observed. PSYCH: Normal mood, normal affect. SKIN: Warm, dry, normal turgor, no rashes or lesions noted Active Medications Generic Name Dose Route Start Last Admin Trade Name Freq PRN Reason Stop Dose Admin Diphenhydramine HCl 25 mg 04/01/18 14:08 04/03/18 10:29 Benadryl Injection - IVPUSH 25 mg Q4H PRN Administration FOR ITCHING Enoxaparin Sodium 40 mg 03/31/18 10:00 04/03/18 09:22 Lovenox - SQ 40 mg BID EVELYN Administration Hydromorphone HCl 0.5 mg 04/02/18 19:00 04/03/18 12:23 Dilaudid Vial - IVPUSH 0.5 mg Q3H PRN Administration PAIN LEVEL 6-10 Metronidazole 500 mg in 100 mls @ 100 mls/hr 04/02/18 18:00 04/03/18 09:23 Flagyl 500mg Premixed Ivpb - IVPB 100 mls/hr Q8H-IV EVELYN Administration Levofloxacin 500 mg in 100 mls @ 100 mls/hr 04/02/18 17:15 04/03/18 10:45 Levaquin 500 Mg Premixed Ivpb - IVPB 100 mls/hr DAILY EVELYN Administration Dextrose/Sodium Chloride 40 meq in 1,000 mls @ 125 mls/hr 04/03/18 10:00 10:29 D5-1/2ns+40 Meq Kcl - IV 125 mls/hr ASDIR EVELYN Administration Loperamide HCl 6 mg 04/03/18 10:17 04/03/18 10:45 Imodium - PO 6 mg Q6H PRN Administration DIARRHEA Methylprednisolone Sodium Succinate 40 mg 04/03/18 10:02 Solu-Medrol - IVPUSH DAILY EVELYN ASSESSMENT/PLAN: Patient is a 42 year old female with past medical history of kidney stones x2 (s /p lithotripsy/stent, 2008), appendectomy , cholecystectomy, 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 #Nausea, vomiting, diarrhea: likely 2/2 Crohn's disease vs acute gastroenteritis vs SBO -CT AP: s/p multiple abdominal surgeries with no evidence of bowel obstruction or acute pathology within the abdomen or pelvis. -GI (Dr. Lovett) consulted. Recommendations appreciated. -To consider diagnosis of pouchitis and backwash ileitis, suspected given diarrhea and IBD history -agree with plan to start Humira once discharged. -Advised to see Dr. Katina Garza at [facility] once discharged. Patient agreeable. -Will start Levaquin 500mg daily and Flagyl 500mg q8h Day 1 -Cear liquid diet. -Immodium 6mg q6h as tolerated for diarrhea. -solu-medrol decreased to 40mg daily. -IV fluids switched to D5-1/2NS +40meq KCl @ 125ml/hr -Monitor and replete electrolytes prn -Stool for culture, C. Diff, O&P, calprotectin still pending -If no improvement, transfer to [facility] for further evaluation. #Hematuria: ?hemorrhagic vs proteinaceous cyst -UA (on admission): 3+ blood, 2+protein, trace LE, 746 WBC, 1026 RBC. Urine culture contaminated. -Repeat UA (04/02/18): 3+blood, 927 RBC, negative LE, no WBC. UCx - growing lactose fermenting GNB -CT AP: Hyperdense renal masses possibly representing cysts. -Renal US: morphologically normal kidneys with no evidence of nephrolithiasis, hydronephrosis, or acute pathology. The small right renal cyst does correspond to the hyperdense mass noted on the recent CT scan. The hypodense left renal mass could not be identified on the sonogram. -Nephrology (Dr. Roy) consulted. Recommendations appreciated. -continue fluids -monitor urine output -repeat labs in the morning -Patient is on Lovenox for DVTs/PE. -Urology (Dr. Day) consulted. Recommendations appreciated. -pain management as needed -follow urine culture thought ua was not suspicious for infection -will schedule outpatient cystoscopy #Polyarthritis: likely 2/2 Crohn's disease -Rheumatology (Dr. Monsivais) consulted. Recommendations appreciated. -Active arthritis 2/2 Crohn's disease with sacro-iliac involvement -X-ray of pelvis - Symmetrical hips, no sign of fracture subluxation, no sign of blastic or lytic changes. -As soon as patient is started on PO, will start Sulfasalazine 1 gr BID -On discharge,will start Humira - in addition to the Sulfasalazine. #FEN -IV D5-1/2NS +40meq KCl @ 125ml/hr -Electrolytes wnl -routine bmp monitoring -Clear liquid diet as tolerated. #Prophylaxis -Lovenox 40mg sq BID #Disposition -full code -med-surg Visit type - Emergency Visit Emergency Visit: Yes ED Registration Date: 03/31/18 Care time: The patient presented to the Emergency Department on the above date and was hospitalized for further evaluation of their emergent condition. - New Patient This patient is new to me today: No - Critical Care Critical Care patient: No
--- NOTE | 2018-04-03 21:21 | PN ---
Progress Note (short form) - Note Progress Note: covering dr galarza Problems 1. hematuria 2. renal mass vs cyst 3. crohns disease 4. hx of DVT 5. vomiting 6. diarrhea 7. hx nephrolithiasis Current Medications Diphenhydramine HCl (Benadryl Injection -) 25 mg IVPUSH Q4H PRN PRN Reason: FOR ITCHING Last Admin: 04/03/18 18:31 Dose: 25 mg Enoxaparin Sodium (Lovenox -) 40 mg SQ BID REPLACED BY [facility] Last Admin: 04/03/18 09:22 Dose: 40 mg Hydromorphone HCl (Dilaudid Vial -) 0.5 mg IVPUSH Q3H PRN PRN Reason: PAIN LEVEL 6-10 Last Admin: 04/03/18 18:08 Dose: 0.5 mg Metronidazole (Flagyl 500mg Premixed Ivpb -) 500 mg in 100 mls @ 100 mls/hr IVPB Q8H-IV EVELYN Last Admin: 04/03/18 17:40 Dose: 100 mls/hr Levofloxacin (Levaquin 500 Mg Premixed Ivpb -) 500 mg in 100 mls @ 100 mls/hr IVPB DAILY REPLACED BY [facility] Last Admin: 04/03/18 10:45 Dose: 100 mls/hr Dextrose/Sodium Chloride (D5-1/2ns+40 Meq Kcl -) 40 meq in 1,000 mls @ 125 mls/ hr IV ASDIR REPLACED BY [facility] Last Admin: 04/03/18 10:29 Dose: 125 mls/hr Loperamide HCl (Imodium -) 6 mg PO Q6H PRN PRN Reason: DIARRHEA Last Admin: 04/03/18 10:45 Dose: 6 mg Methylprednisolone Sodium Succinate (Solu-Medrol -) 40 mg IVPUSH DAILY REPLACED BY [facility] Last Vital Signs Temp Pulse Resp BP Pulse Ox 98.1 F 85 18 113/71 96 04/03/18 11:21 04/03/18 11:21 04/03/18 11:21 04/03/18 11:21 04/03/18 09:00 still having loose bm and hematuria with flank pains s/p low k- replaced lungs clear heart reg abd soft nontender ext no edema CBC, BMP 04/02/18 06:30 04/02/18 06:30 Plan - cont fluids
[2018-04-04] MEDS: HYDROmorphone HCl 2 MG/ML VIAL IVPUSH PRN ×5 (01:48→22:36)
[2018-04-04 08:02] LABS: BASO % 0.6 % (0-2.0); EOS % 1.1 % (0-4.5); HEMATOCRIT 33.6 % (32.4-45.2); HEMOGLOBIN 10.8 GM/dL (10.7-15.3); LYMPH % 28.2 % (8-40); MCH 27.5 pg (25.7-33.7); MCHC 32.3 g/dl (32.0-36.0); MEAN CELL VOLUME 85.3 fl (80-96); MEAN PLT VOLUME 7.9 fl (7.5-11.1); MONO % 7.1 % (3.8-10.2); PLATELET COUNT 452 K/MM3 (134-434); RBC 3.94 M/mm3 (3.60-5.2); RDW 12.8 % (11.6-15.6)
[2018-04-04] MEDS ORDERED: traMADol HCL 50 MG TABLET PO PRN ×2 (09:01→11:50)
[2018-04-04] MEDS ORDERED: PT OWN MED DRAWER 7, Y5N ONE ×3 (09:02→12:41)
[2018-04-04] MEDS ORDERED: diphenhydrAMINE HCL 25 MG CAPSULE (FP) PO PRN ×2 (09:02→11:49)
[2018-04-04] MEDS: methylPREDNISolone NA SUCC 40 MG/1 ML VIAL IVPUSH SCH (09:12)
[2018-04-04] MEDS: ENOXAPARIN NA (PORCINE) 40 MG/0.4 ML DISP.SYRIN SQ SCH ×2 (09:13→22:37)
[2018-04-04 09:23] LABS: ALBUMIN 3.9 g/dl (3.4-5.0); ALK PHOS 111 U/L (45-117); ANION GAP 9 MMOL/L (8-16); BILIRUBIN,TOTAL 0.2 mg/dL (0.2-1); BLOOD UREA NITROGEN 3 mg/dL (7-18); CALCIUM 9.3 mg/dL (8.5-10.1); CHLORIDE 107 mmol/L (98-107); CO2 23 mmol/L (21-32); CREATININE 0.7 mg/dL (0.55-1.3); GLUCOSE,RANDOM 90 mg/dL (74-106); MAGNESIUM 1.7 mg/dL (1.8-2.4); PHOSPHOROUS 2.9 mg/dL (2.5-4.9); SGOT/AST 19 U/L (15-37); SGPT/ALT 30 U/L (13-61); SODIUM 139 mmol/L (136-145); TOT PROT 6.8 g/dl (6.4-8.2)
[2018-04-04] MEDS: LOPERAMIDE HCL 2 MG CAPSULE PO PRN (10:14)
[2018-04-04] MEDS ORDERED: HYDROmorphone HCl 2 MG/ML VIAL IVPUSH PRN (11:00)
[2018-04-04] MEDS ORDERED: MAGNESIUM OXIDE 400 MG TABLET (FP) PO ONE (11:45)
[2018-04-04] MEDS: D5-1/2NS+40 MEQ KCL - 40 MEQ/1,000 ML INFUS.BAG IV SCH (11:46)
--- NOTE | 2018-04-04 11:59 | PN ---
GI Progress Note Subjective: GI NOte: Unable to tolerate clear liquids. Still having diarrhea and pain. CRP is , 0.3 but WBC is 12K. Not clear what is causing this pain so will get a CT scan to exclude a perforation of other inflammatory process. Discussed plan with Dr Arteaga. - Objective Vital Signs: Vital Signs Temperature 98.1 F 04/04/18 06:00 Pulse Rate 109 H 04/04/18 06:00 Respiratory Rate 18 04/04/18 06:00 Blood Pressure 119/77 04/04/18 06:00 O2 Sat by Pulse Oximetry (%) 99 04/03/18 21:00 CBC, BMP 04/04/18 07:00 04/04/18 07:00 Constitutional: Anxious ...Auscultate: Yes: Hypoactive Bowel Sounds ...Palpate: Yes: Soft, Other (nontender) Labs: CBC, BMP 04/04/18 07:00 04/04/18 07:00 Assessment/Plan Crohn's pouchitis and/or ileitis CT Scan Continue present regimen Discussed plan with Dr Arteaga Await return call for [facility] Problem List - Problems (1) Abdominal pain Assessment/Plan: Source is unclear as pouchitis should not cause this much pain. Will obtain CT scan. With patient's permission I called [facility] to attempt a transfer to their IBD unit as we donot have an IBD surgeon. Unfortunately Dr. Garza is on vacation so I await a call from her covering physician. Code(s): R10.9 - UNSPECIFIED ABDOMINAL PAIN Qualifiers: Abdominal location: unspecified location Qualified Code(s): R10.9 - Unspecified abdominal pain (2) Pouchitis Code(s): K91.850 - POUCHITIS (3) History of colectomy Code(s): Z90.49 - ACQUIRED ABSENCE OF OTHER SPECIFIED PARTS OF DIGESTIVE TRACT (4) DVT (deep venous thrombosis) Code(s): I82.409 - ACUTE EMBOLISM AND THOMBOS UNSP DEEP VN UNSP LOWER EXTREMITY (5) Pulmonary embolism Code(s): I26.99 - OTHER PULMONARY EMBOLISM WITHOUT ACUTE COR PULMONALE (6) Crohns disease Code(s): K50.90 - CROHN'S DISEASE, UNSPECIFIED, WITHOUT COMPLICATIONS Qualifiers: Gastrointestinal tract location: unspecified location Digestive disease complication type: unspecified complication Qualified Code(s): K50.919 - Crohn 's disease, unspecified, with unspecified complications (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
[2018-04-04] MEDS ORDERED: DICYCLOMINE HCL 20 MG/2 ML AMPUL IM ONE (12:00)
--- NOTE | 2018-04-04 12:06 | PN ---
Physical Exam: SUBJECTIVE: Patient seen and examined at bedside this morning. No acute events overnight. Patient continuously report having nausea with 3 episodes of vomiting and multiple episodes of diarrhea. She has been asking for dilaudid and benadryl. Patient reported she tried eating yesterday, but threw it up after a few minutes. OBJECTIVE: Vital Signs Period Temp Pulse Resp BP Sys/Newton Pulse Ox Last 24 Hr 97.5 F-98.1 F 89-109 18-20 106-119/66-77 99 GENERAL: The patient is awake, alert, and fully oriented, in no acute distress. HEAD: Normal with no signs of trauma. EYES: PERRLA, EOMI, sclera anicteric, pale conjunctivae. ENT: Ears normal, nares patent, oropharynx clear without exudates, dry mucous membranes. NECK: Trachea midline, full range of motion, supple. LUNGS: Breath sounds equal, clear to auscultation bilaterally. HEART: Regular rate and rhythm, S1, S2 without murmur, rub or gallop. ABDOMEN: Soft, +RUQ/RLQ tenderness, nondistended, normoactive bowel sounds. EXTREMITIES: 2+ pulses, warm, well-perfused, no edema. B/l UE: +tenderness and swelling of fingers NEUROLOGICAL: Cranial nerves II through XII grossly intact. Normal speech, gait not observed. PSYCH: Normal mood, normal affect. SKIN: Warm, dry, normal turgor, no rashes or lesions noted Laboratory Results - last 24 hr 04/04/18 04/04/18 07:00 07:00 WBC 12.0 H RBC 3.94 Hgb 10.8 Hct 33.6 MCV 85.3 MCH 27.5 MCHC 32.3 RDW 12.8 Plt Count 452 H D MPV 7.9 Absolute Neuts (auto) 7.5 Neutrophils % 63.0 Lymphocytes % 28.2 Monocytes % 7.1 Eosinophils % 1.1 Basophils % 0.6 Nucleated RBC % 0 Sodium 139 Potassium 4.0 Chloride 107 Carbon Dioxide 23 Anion Gap 9 BUN 3 L Creatinine 0.7 Creat Clearance w eGFR > 60 Random Glucose 90 Calcium 9.3 Phosphorus 2.9 Magnesium 1.7 L Total Bilirubin 0.2 AST 19 ALT 30 Alkaline Phosphatase 111 C-Reactive Protein < 0.3 Total Protein 6.8 Albumin 3.9 Active Medications Generic Name Dose Route Start Last Admin Trade Name Freq PRN Reason Stop Dose Admin Diphenhydramine HCl 25 mg 04/04/18 11:49 Benadryl - PO Q4H PRN NAUSEA Enoxaparin Sodium 40 mg 03/31/18 10:00 04/04/18 09:13 Lovenox - SQ 40 mg BID EVELYN Administration Metronidazole 500 mg in 100 mls @ 100 mls/hr 04/02/18 18:00 04/04/18 09:11 Flagyl 500mg Premixed Ivpb - IVPB 100 mls/hr Q8H-IV EVELYN Administration Levofloxacin 500 mg in 100 mls @ 100 mls/hr 04/02/18 17:15 04/04/18 10:15 Levaquin 500 Mg Premixed Ivpb - IVPB 100 mls/hr DAILY EVELYN Administration Dextrose/Sodium Chloride 40 meq in 1,000 mls @ 125 mls/hr 04/03/18 10:00 11:46 D5-1/2ns+40 Meq Kcl - IV 125 mls/hr ASDIR EVELYN Administration Loperamide HCl 6 mg 04/03/18 10:17 04/04/18 10:14 Imodium - PO 6 mg Q6H PRN Administration DIARRHEA Methylprednisolone Sodium Succinate 40 mg 04/03/18 10:02 04/04/18 09:12 Solu-Medrol - IVPUSH 40 mg DAILY EVELYN Administration Tramadol HCl 25 mg 04/04/18 11:50 Ultram - PO Q4H PRN PAIN LEVEL 7 - 10 ASSESSMENT/PLAN: Patient is a 42 year old female with past medical history of kidney stones x2 (s /p lithotripsy/stent, 2008), appendectomy , cholecystectomy, 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 #Nausea, vomiting, diarrhea: likely 2/2 Crohn's disease vs acute gastroenteritis vs SBO -CT AP: s/p multiple abdominal surgeries with no evidence of bowel obstruction or acute pathology within the abdomen or pelvis. -GI (Dr. Lovett) consulted. Recommendations appreciated. -To consider diagnosis of pouchitis and backwash ileitis, unlikely with patient presenting with so much pain. -agree with plan to start Humira once discharged. -Dr. Lovett attempted to call Dr. Katina Garza at [facility] for possible transfer, unfortunately she is not available at this time. Waiting call back from covering physician. -Levaquin 500mg daily and Flagyl 500mg q8h Day 2 -Cear liquid diet. -Immodium 6mg q6h as tolerated for diarrhea. -solu-medrol decreased to 40mg daily. -IV fluids switched to D5-1/2NS +40meq KCl @ 125ml/hr -IV benadryl switched to PO, dilaudid switched to PO Tramadol -Monitor and replete electrolytes prn -Stool for culture, C. Diff, O&P, calprotectin still pending -Repeat CT abdomen and pelvis today. #Hematuria: ?hemorrhagic vs proteinaceous cyst -UA (on admission): 3+ blood, 2+protein, trace LE, 746 WBC, 1026 RBC. Urine culture contaminated. -Repeat UA (04/02/18): 3+blood, 927 RBC, negative LE, no WBC. UCx - growing lactose fermenting GNB -CT AP: Hyperdense renal masses possibly representing cysts. -Renal US: morphologically normal kidneys with no evidence of nephrolithiasis, hydronephrosis, or acute pathology. The small right renal cyst does correspond to the hyperdense mass noted on the recent CT scan. The hypodense left renal mass could not be identified on the sonogram. -Nephrology (Dr. Roy) consulted. Recommendations appreciated. -continue fluids -monitor urine output -repeat labs in the morning -Patient is on Lovenox for DVTs/PE. -Urology (Dr. Day) consulted. Recommendations appreciated. -pain management as needed -follow urine culture thought ua was not suspicious for infection -will schedule outpatient cystoscopy #Polyarthritis: likely 2/2 Crohn's disease -Rheumatology (Dr. Monsivais) consulted. Recommendations appreciated. -Active arthritis 2/2 Crohn's disease with sacro-iliac involvement -X-ray of pelvis - Symmetrical hips, no sign of fracture subluxation, no sign of blastic or lytic changes. -As soon as patient is started on PO, will start Sulfasalazine 1 gr BID -On discharge,will start Humira - in addition to the Sulfasalazine. #FEN -IV D5-1/2NS +40meq KCl @ 125ml/hr -Electrolytes wnl -routine bmp monitoring -Clear liquid diet as tolerated. #Prophylaxis -Lovenox 40mg sq BID #Disposition -full code -med-surg Visit type - Emergency Visit Emergency Visit: Yes ED Registration Date: 03/31/18 Care time: The patient presented to the Emergency Department on the above date and was hospitalized for further evaluation of their emergent condition. - New Patient This patient is new to me today: No - Critical Care Critical Care patient: No
--- NOTE | 2018-04-04 15:45 | PN ---
Teaching Attending Note Name of Resident: Yary Arredondo ATTENDING PHYSICIAN STATEMENT I saw and evaluated the patient. I reviewed the resident's note and discussed the case with the resident. I agree with the resident's findings and plan as documented. SUBJECTIVE: patient continues to be in pain. OBJECTIVE: Vital Signs Temperature 98 F 04/04/18 09:10 Pulse Rate 106 H 04/04/18 09:10 Respiratory Rate 18 04/04/18 09:10 Blood Pressure 111/83 04/04/18 09:10 O2 Sat by Pulse Oximetry (%) 99 04/03/18 21:00 GENERAL: AOX3, weak in pain HEAD: NCAT, EYES: extraocular movements intact, sclera anicteric, conjunctiva clear. EARS, NOSE, THROAT: Ears normal, oropharynx clear without exudates. dry mucous membranes. NECK: Normal range of motion, supple without lymphadenopathy, JVD, or masses. LUNGS: CTAB. Left chest port. HEART: RRR, normal S1 and S2 without murmur, rub or gallop. ABDOMEN: Soft, diffuse lower abdomen mild tenderness , positive for BS , no guarding, no rebound, no masses. positive for surgical scars EXTREMITIES: 2+ pulses, warm, well-perfused. upper hand joints improved post steroid. NEUROLOGICAL: Cranial nerves II-XII intact. Normal speech. SKIN: Warm, dry, normal turgor, no rashes or lesions noted, normal capillary refill. CBCD WBC 12.0 K/mm3 (4.0-10.0) H 04/04/18 07:00 RBC 3.94 M/mm3 (3.60-5.2) 04/04/18 07:00 Hgb 10.8 GM/dL (10.7-15.3) 04/04/18 07:00 Hct 33.6 % (32.4-45.2) 04/04/18 07:00 MCV 85.3 fl (80-96) 04/04/18 07:00 MCHC 32.3 g/dl (32.0-36.0) 04/04/18 07:00 RDW 12.8 % (11.6-15.6) 04/04/18 07:00 Plt Count 452 K/MM3 (134-434) H D 04/04/18 07:00 MPV 7.9 fl (7.5-11.1) 04/04/18 07:00 CMP Sodium 139 mmol/L (136-145) 04/04/18 07:00 Potassium 4.0 mmol/L (3.5-5.1) 04/04/18 07:00 Chloride 107 mmol/L (98-107) 04/04/18 07:00 Carbon Dioxide 23 mmol/L (21-32) 04/04/18 07:00 Anion Gap 9 MMOL/L (8-16) 04/04/18 07:00 BUN 3 mg/dL (7-18) L 04/04/18 07:00 Creatinine 0.7 mg/dL (0.55-1.3) 04/04/18 07:00 Creat Clearance w eGFR > 60 (>60) 04/04/18 07:00 Random Glucose 90 mg/dL (74-106) 04/04/18 07:00 Calcium 9.3 mg/dL (8.5-10.1) 04/04/18 07:00 Total Bilirubin 0.2 mg/dL (0.2-1) 04/04/18 07:00 AST 19 U/L (15-37) 04/04/18 07:00 ALT 30 U/L (13-61) 04/04/18 07:00 Alkaline Phosphatase 111 U/L (45-117) 04/04/18 07:00 Total Protein 6.8 g/dl (6.4-8.2) 04/04/18 07:00 Albumin 3.9 g/dl (3.4-5.0) 04/04/18 07:00 Current Medications Generic Name Dose Route Start Last Admin Trade Name Mateoq PRN Reason Stop Dose Admin Diphenhydramine HCl 25 mg 04/04/18 15:41 Benadryl Injection - IVPB Q6H PRN NAUSEA AND/OR VOMITING Enoxaparin Sodium 40 mg 03/31/18 10:00 04/04/18 09:13 Lovenox - SQ 40 mg BID EVELYN Administration Hydromorphone HCl 0.5 mg 04/04/18 15:39 Dilaudid Injection - IVPUSH Q3H PRN PAIN LEVEL 6-10 Metronidazole 500 mg in 100 mls @ 100 mls/hr 04/02/18 18:00 04/04/18 09:11 Flagyl 500mg Premixed Ivpb - IVPB 100 mls/hr Q8H-IV EVELYN Administration Levofloxacin 500 mg in 100 mls @ 100 mls/hr 04/02/18 17:15 04/04/18 10:15 Levaquin 500 Mg Premixed Ivpb - IVPB 100 mls/hr DAILY EVELYN Administration Dextrose/Sodium Chloride 40 meq in 1,000 mls @ 125 mls/hr 04/03/18 10:00 11:46 D5-1/2ns+40 Meq Kcl - IV 125 mls/hr ASDIR EVELYN Administration Loperamide HCl 6 mg 04/03/18 10:17 04/04/18 10:14 Imodium - PO 6 mg Q6H PRN Administration DIARRHEA Methylprednisolone Sodium Succinate 40 mg 04/03/18 10:02 04/04/18 09:12 Solu-Medrol - IVPUSH 40 mg DAILY EVELYN Administration Home Medications Medication Instructions Recorded Diphenoxylate 2.5/Atropine.025 1 combo PO Q6H 03/31/18 [Lomotil -] Enoxaparin [Lovenox -] 40 mg SQ BID 03/31/18 Loperamide HCl [Imodium -] 8 mg PO QID 03/31/18 Ondansetron [Zofran -] 4 mg PO Q6H PRN 03/31/18 Pantoprazole Sodium [Protonix -] 40 mg PO DAILY 03/31/[address] scan no acute changes. 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 #Acute Nausea/Vomiting and Diarrhea continues, As per possible transfer to [facility] to the special IBD unit, patient agrees transfer once acceptance is in place. As per Dr. Leach ,discussed the case with the [facility] , waiting a call from them . Also as per continue Flagyl IV and Levaquin daily. As per patient : post reversal of the colostomy increased her diarrhea, patient Takes Imodium and Lomotil daily at home but does not help. Will hold the Zofran since her QTc is in 479's. As per patient Benadryl helps her nausea and vomiting. will continue Benadryl 25mg q6h IV prn, and dilaudid 0.5mg q3h prn continue IVF if patient does not improve will try to transfer the patient to [facility] in am. #Right renal hemorrhagic hyperdense mass/ proteinaceous cyst, monitor H/H and hematuria, Urology consult Dr. Owusu seen the patient and would follow with the patient as an outpatient. 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 As soon as she is on PO start Sulfasalazine 1 gr BID and as soon as she is discharged, she will follow up with him for Humira - in addition to the Sulfasalazine. # Hx of PE: brenda continue lovenox therapy for now, since patient has a hypercoaguable state.will get Pulmonary to see the patient. as per GI at per pt, prior CT in 07/2017 showed no cyst #DVT Px: Lovenox 40 mg SQ BID for remote PE. Discussed with to continue pain meds iv for now.
[2018-04-04] MEDS ORDERED: MAGNESIUM SULF 50% (8.12 MEQ/2 ML-1 GM VIAL) IVPB ONE (16:46)
--- NOTE | 2018-04-04 16:46 | PN ---
Progress Note, Physician History of Present Illness: Pt seen and examined at bedside. She still has abdominal pain. She complains of nausea and vomiting. - Current Medication List Current Medications: Active Medications Diphenhydramine HCl (Benadryl Injection -) 25 mg IVPB Q6H PRN PRN Reason: NAUSEA AND/OR VOMITING Last Admin: 04/04/18 16:02 Dose: 25 mg Enoxaparin Sodium (Lovenox -) 40 mg SQ BID [facility] Last Admin: 04/04/18 09:13 Dose: 40 mg Hydromorphone HCl (Dilaudid Vial -) 0.5 mg IVPUSH Q3H PRN PRN Reason: PAIN LEVEL 6-10 Last Admin: 04/04/18 15:58 Dose: 0.5 mg Metronidazole (Flagyl 500mg Premixed Ivpb -) 500 mg in 100 mls @ 100 mls/hr IVPB Q8H-IV EVELYN Last Admin: 04/04/18 09:11 Dose: 100 mls/hr Levofloxacin (Levaquin 500 Mg Premixed Ivpb -) 500 mg in 100 mls @ 100 mls/hr IVPB DAILY [facility] Last Admin: 04/04/18 10:15 Dose: 100 mls/hr Dextrose/Sodium Chloride (D5-1/2ns+40 Meq Kcl -) 40 meq in 1,000 mls @ 125 mls/ hr IV ASDIR [facility] Last Admin: 04/04/18 11:46 Dose: 125 mls/hr Loperamide HCl (Imodium -) 6 mg PO Q6H PRN PRN Reason: DIARRHEA Last Admin: 04/04/18 10:14 Dose: 6 mg Methylprednisolone Sodium Succinate (Solu-Medrol -) 40 mg IVPUSH DAILY [facility] Last Admin: 04/04/18 09:12 Dose: 40 mg - Objective Vital Signs: Vital Signs Temperature 98 F 04/04/18 09:10 Pulse Rate 106 H 04/04/18 09:10 Respiratory Rate 18 04/04/18 09:10 Blood Pressure 111/83 04/04/18 09:10 O2 Sat by Pulse Oximetry (%) 99 04/03/18 21:00 Constitutional: Yes: Calm Eyes: Yes: Conjunctiva Clear HENT: Yes: Atraumatic Cardiovascular: Yes: S1, S2 Respiratory: Yes: CTA Bilaterally Gastrointestinal: Yes: Soft Genitourinary: Yes: Hematuria, Other (says hematuria is improving) Edema: No Labs: CBC, BMP 04/04/18 07:00 04/04/18 07:00 Problem List - Problems (1) Abdominal pain Code(s): R10.9 - UNSPECIFIED ABDOMINAL PAIN Qualifiers: Abdominal location: unspecified location Qualified Code(s): R10.9 - Unspecified abdominal pain (2) Crohns disease Code(s): K50.90 - CROHN'S DISEASE, UNSPECIFIED, WITHOUT COMPLICATIONS Qualifiers: Gastrointestinal tract location: unspecified location Digestive disease complication type: unspecified complication Qualified Code(s): K50.919 - Crohn 's disease, unspecified, with unspecified complications (3) Nausea vomiting and diarrhea Code(s): R11.2 - NAUSEA WITH VOMITING, UNSPECIFIED; R19.7 - DIARRHEA, UNSPECIFIED Assessment/Plan Current Medications Generic Name Dose Route Start Last Admin Trade Name Freq PRN Reason Stop Dose Admin Diphenhydramine HCl 25 mg 04/04/18 15:41 04/04/18 16:02 Benadryl Injection - IVPB 25 mg Q6H PRN Administration NAUSEA AND/OR VOMITING Enoxaparin Sodium 40 mg 03/31/18 10:00 04/04/18 09:13 Lovenox - SQ 40 mg BID EVELYN Administration Hydromorphone HCl 0.5 mg 04/04/18 15:39 04/04/18 15:58 Dilaudid Vial - IVPUSH 0.5 mg Q3H PRN Administration PAIN LEVEL 6-10 Metronidazole 500 mg in 100 mls @ 100 mls/hr 04/02/18 18:00 04/04/18 09:11 Flagyl 500mg Premixed Ivpb - IVPB 100 mls/hr Q8H-IV EVELYN Administration Levofloxacin 500 mg in 100 mls @ 100 mls/hr 04/02/18 17:15 04/04/18 10:15 Levaquin 500 Mg Premixed Ivpb - IVPB 100 mls/hr DAILY EVELYN Administration Dextrose/Sodium Chloride 40 meq in 1,000 mls @ 125 mls/hr 04/03/18 10:00 11:46 D5-1/2ns+40 Meq Kcl - IV 125 mls/hr ASDIR EVELYN Administration Loperamide HCl 6 mg 04/03/18 10:17 04/04/18 10:14 Imodium - PO 6 mg Q6H PRN Administration DIARRHEA Methylprednisolone Sodium Succinate 40 mg 04/03/18 10:02 04/04/18 09:12 Solu-Medrol - IVPUSH 40 mg DAILY EVELYN Administration Impression 1. hematuria 2. renal mass vs cyst 3. crohns disease 4. hx of DVT 5. vomiting 6. diarrhea 7. hx nephrolithiasis 8. hypomagnesemia Plan - replace mag - cont fluids as she is not eating - GI follow up - hematuria is improving - will repeat ua once urine clears - monitor lyalexis Roy
[2018-04-05] MEDS: D5-1/2NS+40 MEQ KCL - 40 MEQ/1,000 ML INFUS.BAG IV SCH ×2 (00:21→12:11)
[2018-04-05] MEDS: HYDROmorphone HCl 2 MG/ML VIAL IVPUSH PRN ×8 (01:15→23:20)
[2018-04-05 08:19] LABS: BASO % 0.5 % (0-2.0); HEMATOCRIT 27.6 % (32.4-45.2); HEMOGLOBIN 9.6 GM/dL (10.7-15.3); LYMPH % 27.6 % (8-40); MCH 29.3 pg (25.7-33.7); MCHC 34.8 g/dl (32.0-36.0); MEAN CELL VOLUME 84.1 fl (80-96); MEAN PLT VOLUME 7.8 fl (7.5-11.1); MONO % 8.3 % (3.8-10.2); NEUT % 62.6 % (42.8-82.8); PLATELET COUNT 378 K/MM3 (134-434); RBC 3.28 M/mm3 (3.60-5.2); RDW 13.1 % (11.6-15.6); WHITE BLOOD COUNT 9.7 K/mm3 (4.0-10.0)
[2018-04-05 08:43] LABS: ALBUMIN 3.6 g/dl (3.4-5.0); ALK PHOS 93 U/L (45-117); ANION GAP 7 MMOL/L (8-16); BILIRUBIN,TOTAL 0.2 mg/dL (0.2-1); BLOOD UREA NITROGEN 5 mg/dL (7-18); CALCIUM 8.6 mg/dL (8.5-10.1); CHLORIDE 107 mmol/L (98-107); CO2 24 mmol/L (21-32); CREATININE 0.6 mg/dL (0.55-1.3); GLUCOSE,RANDOM 100 mg/dL (74-106); POTASSIUM 4.2 mmol/L (3.5-5.1); SGOT/AST 17 U/L (15-37); SGPT/ALT 25 U/L (13-61); SODIUM 139 mmol/L (136-145)
[2018-04-05] MEDS ORDERED: DIPHENOXYLATE 2.5/ATROPINE.025 1 COMBO TABLET PO PRN (09:51)
--- NOTE | 2018-04-05 09:51 | PN ---
GI Progress Note Subjective: GI NOte: Unable to keep anything down even her imodium. Apparently had 1800cc of diarrhea. Still with pain. CT revealed no obstruction or perforation. - Objective Vital Signs: Vital Signs Temperature 97.7 F 04/05/18 05:00 Pulse Rate 91 H 04/05/18 05:00 Respiratory Rate 18 04/05/18 05:00 Blood Pressure 100/54 L 04/05/18 05:00 O2 Sat by Pulse Oximetry (%) 99 04/04/18 21:00 Laboratory Tests 04/05/18 04/05/18 06:36 06:36 Hgb 9.6 L Potassium 4.2 BUN 5 L Creatinine 0.6 Total Bilirubin 0.2 C-Reactive Protein 0.4 H Constitutional: Calm ...Auscultate: Yes: Hypoactive Bowel Sounds ...Palpate: Yes: Soft, Other (nontender) Labs: CBC, BMP 04/05/18 06:36 04/05/18 06:36 Assessment/Plan Crohn's pouchitis and/or ileitis Diarrhea is chronic and related to colectomy. Valery tells me that she has 1-2 liters of diarrhea as her norm. CT Scan reveals no crisis Will add lomotil and repeat C diff toxin screen Start Rowasa enema Continue present regimen Await return call for [facility] Problem List - Problems (1) Abdominal pain Code(s): R10.9 - UNSPECIFIED ABDOMINAL PAIN Qualifiers: Abdominal location: unspecified location Qualified Code(s): R10.9 - Unspecified abdominal pain (2) Pouchitis Code(s): K91.850 - POUCHITIS (3) History of colectomy Code(s): Z90.49 - ACQUIRED ABSENCE OF OTHER SPECIFIED PARTS OF DIGESTIVE TRACT (4) DVT (deep venous thrombosis) Code(s): I82.409 - ACUTE EMBOLISM AND THOMBOS UNSP DEEP VN UNSP LOWER EXTREMITY (5) Pulmonary embolism Code(s): I26.99 - OTHER PULMONARY EMBOLISM WITHOUT ACUTE COR PULMONALE (6) Crohns disease Code(s): K50.90 - CROHN'S DISEASE, UNSPECIFIED, WITHOUT COMPLICATIONS Qualifiers: Gastrointestinal tract location: unspecified location Digestive disease complication type: unspecified complication Qualified Code(s): K50.919 - Crohn 's disease, unspecified, with unspecified complications (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
[2018-04-05] MEDS: ENOXAPARIN NA (PORCINE) 40 MG/0.4 ML DISP.SYRIN SQ SCH ×2 (10:00→22:18)
[2018-04-05] MEDS: LOPERAMIDE HCL 2 MG CAPSULE PO PRN (10:00)
[2018-04-05] MEDS: methylPREDNISolone NA SUCC 40 MG/1 ML VIAL IVPUSH SCH (10:00)
[2018-04-05 11:12] LABS: ACANTHOCYTES 0; ANISOCYTOSIS 0; HELMET CELLS 0; HOWELL-JOLLY BODIES 0; MACROCYTOSIS 0; OVALOCYTE 0; PLATELET ESTIMATE NORMAL; ROULEAU 0; SICKELED CELLS 0; TARGET CELLS 0; TEAR DROP CELLS 0; TOXIC GRANULATION 0
--- NOTE | 2018-04-05 12:37 | PN ---
Physical Exam: SUBJECTIVE: Patient seen and examined. Said she had over 10 episodes of diarrhea yesterday. Wasn't able to tolerate PO yesterday. Had nausea and vomited multiple times. OBJECTIVE: Vital Signs Period Temp Pulse Resp BP Sys/Newton Pulse Ox Last 24 Hr 97.7 F-98.4 F 91-115 18-18 96-109/54-82 99 GENERAL: The patient is awake, alert, and fully oriented, in no acute distress. HEAD: Normal with no signs of trauma. EYES: PERRLA, EOMI, sclera anicteric, pale conjunctivae. ENT: oropharynx clear without exudates, dry mucous membranes. NECK: supple. LUNGS: Breath sounds equal, clear to auscultation bilaterally. HEART: Regular rate and rhythm, S1, S2 without murmur, rub or gallop. ABDOMEN: Soft, +RUQ/RLQ tenderness, nondistended, normoactive bowel sounds. EXTREMITIES: 2+ pulses, warm, well-perfused NEUROLOGICAL: Cranial nerves II through XII grossly intact. Normal speech, gait not observed. PSYCH: Normal mood, normal affect. SKIN: Warm, dry, normal turgor, no rashes or lesions noted Laboratory Results - last 24 hr 04/05/18 04/05/18 06:36 06:36 WBC 9.7 RBC 3.28 L Hgb 9.6 L Hct 27.6 L D MCV 84.1 MCH 29.3 MCHC 34.8 RDW 13.1 Plt Count 378 MPV 7.8 Absolute Neuts (auto) 6.1 Neutrophils % 62.6 Neutrophils % (Manual) 64.4 Band Neutrophils % 0.0 Lymphocytes % 27.6 Lymphocytes % (Manual) 25.7 Monocytes % 8.3 Monocytes % (Manual) 8 Eosinophils % 1.0 Eosinophils % (Manual) 1.0 Basophils % 0.5 Basophils % (Manual) 0.0 Myelocytes % (Man) 1 Promyelocytes % (Man) 0 Blast Cells % (Manual) 0 Nucleated RBC % 0 Metamyelocytes 0 Hypochromia 0 Toxic Granulation 0 Dohle Bodies 0 Platelet Estimate Normal Polychromasia 0 Poikilocytosis 0 Basophilic Stippling 0 Anisocytosis 0 Microcytosis 0 Macrocytosis 0 Spherocytes 0 Sickle Cells 0 Target Cells 0 Tear Drop Cells 0 Ovalocytes 0 Stomatocytes 0 Helmet Cells 0 [place] Bodies 0 [place] Rings 0 [place] Cells 0 Acanthocytes (Spur) 0 Rouleaux 0 Fragmented RBCs 0 Schistocytes 0 Sodium 139 Potassium 4.2 Chloride 107 Carbon Dioxide 24 Anion Gap 7 L BUN 5 L Creatinine 0.6 Creat Clearance w eGFR > 60 Random Glucose 100 Calcium 8.6 Total Bilirubin 0.2 AST 17 ALT 25 Alkaline Phosphatase 93 C-Reactive Protein 0.4 H Total Protein 6.0 L Albumin 3.6 Active Medications Generic Name Dose Route Start Last Admin Trade Name Freq PRN Reason Stop Dose Admin Diphenhydramine HCl 12.5 mg 04/05/18 10:33 Benadryl Injection - IVPB Q4H PRN NAUSEA AND/OR VOMITING Diphenoxylate HCl/Atropine 1 combo 04/05/18 09:51 Lomotil - PO Q8H PRN DIARRHEA Enoxaparin Sodium 40 mg 03/31/18 10:00 04/05/18 10:00 Lovenox - SQ 40 mg BID EVELYN Administration Hydrocortisone 100 mg 04/05/18 22:00 Cortenema - RC HS EVELYN Hydromorphone HCl 0.5 mg 04/04/18 15:39 04/05/18 10:44 Dilaudid Vial - IVPUSH 0.5 mg Q3H PRN Administration PAIN LEVEL 6-10 Metronidazole 500 mg in 100 mls @ 100 mls/hr 04/02/18 18:00 04/05/18 10:01 Flagyl 500mg Premixed Ivpb - IVPB 100 mls/hr Q8H-IV EVELYN Administration Levofloxacin 500 mg in 100 mls @ 100 mls/hr 04/02/18 17:15 04/05/18 09:01 Levaquin 500 Mg Premixed Ivpb - IVPB 100 mls/hr DAILY EVELYN Administration Dextrose/Sodium Chloride 40 meq in 1,000 mls @ 125 mls/hr 04/03/18 10:00 00:21 D5-1/2ns+40 Meq Kcl - IV 125 mls/hr ASDIR EVELYN Administration Loperamide HCl 6 mg 04/03/18 10:17 04/05/18 10:00 Imodium - PO 6 mg Q6H PRN Administration DIARRHEA Methylprednisolone Sodium Succinate 40 mg 04/03/18 10:02 04/05/18 10:00 Solu-Medrol - IVPUSH 40 mg DAILY EVELYN Administration ASSESSMENT/PLAN: Patient is a 42 year old female with past medical history of kidney stones x2 (s /p lithotripsy/stent, 2008), appendectomy , cholecystectomy, 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 #Nausea, vomiting, diarrhea: likely 2/2 Crohn's pouchitis and/or ileitis -CT AP: s/p multiple abdominal surgeries with no evidence of bowel obstruction or acute pathology within the abdomen or pelvis. -GI (Dr. Lovett) consulted. Recommendations appreciated. -plan to start Humira once discharged. -Dr. Lovett attempted to call Dr. Katina Garza at [facility] for possible transfer. -Add lomotil and repeat C diff toxin screen -Start Rowasa enema -Levaquin 500mg daily and Flagyl 500mg q8h Day 3 -Cear liquid diet. -Immodium 6mg q6h as tolerated for diarrhea. -solu-medrol decreased to 40mg daily. -IV fluids switched to D5-1/2NS +40meq KCl @ 125ml/hr -IV benadryl, dilaudid 0.5 q3 IV -Monitor and replete electrolytes prn -Stool for culture, C. Diff, O&P, calprotectin still pending -Repeat CT revealed no obstruction or perforation. #Hematuria: ?hemorrhagic vs proteinaceous cyst -UA (on admission): 3+ blood, 2+protein, trace LE, 746 WBC, 1026 RBC. Urine culture contaminated. -Repeat UA (04/02/18): 3+blood, 927 RBC, negative LE, no WBC. UCx - citroacter Braakii -CT AP: Hyperdense renal masses possibly representing cysts. -Renal US: morphologically normal kidneys with no evidence of nephrolithiasis, hydronephrosis, or acute pathology. The small right renal cyst does correspond to the hyperdense mass noted on the recent CT scan. The hypodense left renal mass could not be identified on the sonogram. -Nephrology (Dr. Roy) consulted. Recommendations appreciated. -continue fluids -monitor urine output -repeat labs in the morning -Patient is on Lovenox for DVTs/PE. -Urology (Dr. Day) consulted. Recommendations appreciated. -pain management as needed -follow urine culture thought ua was not suspicious for infection -will schedule outpatient cystoscopy #Polyarthritis: likely 2/2 Crohn's disease -Rheumatology (Dr. Monsivais) consulted. Recommendations appreciated. -Active arthritis 2/2 Crohn's disease with sacro-iliac involvement -X-ray of pelvis - Symmetrical hips, no sign of fracture subluxation, no sign of blastic or lytic changes. -As soon as patient is started on PO, will start Sulfasalazine 1 gr BID -On discharge,will start Humira - in addition to the Sulfasalazine. #FEN -IV D5-1/2NS +40meq KCl @ 125ml/hr -Electrolytes wnl -Clear liquid diet as tolerated. #Prophylaxis -Lovenox 40mg sq BID #Disposition -full code -med-surg Visit type - Emergency Visit Emergency Visit: Yes ED Registration Date: 03/31/18 Care time: The patient presented to the Emergency Department on the above date and was hospitalized for further evaluation of their emergent condition. - New Patient This patient is new to me today: Yes Date on this admission: 04/05/18 - Critical Care Critical Care patient: No
[2018-04-05 12:50] LABS: MAGNESIUM 1.8 mg/dL (1.8-2.4); PHOSPHOROUS 3.7 mg/dL (2.5-4.9)
--- NOTE | 2018-04-05 14:58 | PN ---
Progress Note, Physician History of Present Illness: Pt seen and examined at bedside. She is not able to tolerate food yet. She still has hematuria but it is improving. - Current Medication List Current Medications: Active Medications Diphenhydramine HCl (Benadryl Injection -) 12.5 mg IVPB Q4H PRN PRN Reason: NAUSEA AND/OR VOMITING Diphenoxylate HCl/Atropine (Lomotil -) 1 combo PO Q8H PRN PRN Reason: DIARRHEA Enoxaparin Sodium (Lovenox -) 40 mg SQ BID [facility] Last Admin: 04/05/18 10:00 Dose: 40 mg Hydrocortisone (Cortenema -) 100 mg RC HS EVELYN Hydromorphone HCl (Dilaudid Vial -) 0.5 mg IVPUSH Q3H PRN PRN Reason: PAIN LEVEL 6-10 Last Admin: 04/05/18 10:44 Dose: 0.5 mg Metronidazole (Flagyl 500mg Premixed Ivpb -) 500 mg in 100 mls @ 100 mls/hr IVPB Q8H-IV EVELYN Last Admin: 04/05/18 10:01 Dose: 100 mls/hr Levofloxacin (Levaquin 500 Mg Premixed Ivpb -) 500 mg in 100 mls @ 100 mls/hr IVPB DAILY [facility] Last Admin: 04/05/18 09:01 Dose: 100 mls/hr Dextrose/Sodium Chloride (D5-1/2ns+40 Meq Kcl -) 40 meq in 1,000 mls @ 125 mls/ hr IV ASDIR EVELYN Last Admin: 04/05/18 00:21 Dose: 125 mls/hr Famotidine/Sodium Chloride (Pepcid 20 Mg Premixed Ivpb -) 20 mg in 50 mls @ 100 mls/hr IVPB BID EVELYN Loperamide HCl (Imodium -) 6 mg PO Q6H PRN PRN Reason: DIARRHEA Last Admin: 04/05/18 10:00 Dose: 6 mg Methylprednisolone Sodium Succinate (Solu-Medrol -) 40 mg IVPUSH DAILY [facility] Last Admin: 04/05/18 10:00 Dose: 40 mg - Objective Vital Signs: Vital Signs Temperature 97.7 F 04/05/18 05:00 Pulse Rate 91 H 04/05/18 05:00 Respiratory Rate 18 04/05/18 05:00 Blood Pressure 100/54 L 04/05/18 05:00 O2 Sat by Pulse Oximetry (%) 99 04/04/18 21:00 Constitutional: Yes: Calm Eyes: Yes: Conjunctiva Clear HENT: Yes: Atraumatic Neck: Yes: Supple Cardiovascular: Yes: S1, S2 Respiratory: Yes: CTA Bilaterally Gastrointestinal: Yes: Soft Genitourinary: Yes: Hematuria Musculoskeletal: Yes: WNL Edema: No Neurological: Yes: Oriented Psychiatric: Yes: Oriented Labs: CBC, BMP 04/05/18 06:36 04/05/18 06:36 Problem List - Problems (1) Abdominal pain Code(s): R10.9 - UNSPECIFIED ABDOMINAL PAIN Qualifiers: Abdominal location: unspecified location Qualified Code(s): R10.9 - Unspecified abdominal pain (2) Crohns disease Code(s): K50.90 - CROHN'S DISEASE, UNSPECIFIED, WITHOUT COMPLICATIONS Qualifiers: Gastrointestinal tract location: unspecified location Digestive disease complication type: unspecified complication Qualified Code(s): K50.919 - Crohn 's disease, unspecified, with unspecified complications (3) Nausea vomiting and diarrhea Code(s): R11.2 - NAUSEA WITH VOMITING, UNSPECIFIED; R19.7 - DIARRHEA, UNSPECIFIED Assessment/Plan Current Medications Generic Name Dose Route Start Last Admin Trade Name Freq PRN Reason Stop Dose Admin Diphenhydramine HCl 12.5 mg 04/05/18 10:33 Benadryl Injection - IVPB Q4H PRN NAUSEA AND/OR VOMITING Diphenoxylate HCl/Atropine 1 combo 04/05/18 09:51 Lomotil - PO Q8H PRN DIARRHEA Enoxaparin Sodium 40 mg 03/31/18 10:00 04/05/18 10:00 Lovenox - SQ 40 mg BID EVELYN Administration Hydrocortisone 100 mg 04/05/18 22:00 Cortenema - RC HS EVELYN Hydromorphone HCl 0.5 mg 04/04/18 15:39 04/05/18 10:44 Dilaudid Vial - IVPUSH 0.5 mg Q3H PRN Administration PAIN LEVEL 6-10 Metronidazole 500 mg in 100 mls @ 100 mls/hr 04/02/18 18:00 04/05/18 10:01 Flagyl 500mg Premixed Ivpb - IVPB 100 mls/hr Q8H-IV EVELYN Administration Levofloxacin 500 mg in 100 mls @ 100 mls/hr 04/02/18 17:15 04/05/18 09:01 Levaquin 500 Mg Premixed Ivpb - IVPB 100 mls/hr DAILY EVELYN Administration Dextrose/Sodium Chloride 40 meq in 1,000 mls @ 125 mls/hr 04/03/18 10:00 00:21 D5-1/2ns+40 Meq Kcl - IV 125 mls/hr ASDIR EVELYN Administration Famotidine/Sodium Chloride 20 mg in 50 mls @ 100 mls/hr 04/05/18 14:00 Pepcid 20 Mg Premixed Ivpb - IVPB BID EVELYN Loperamide HCl 6 mg 04/03/18 10:17 04/05/18 10:00 Imodium - PO 6 mg Q6H PRN Administration DIARRHEA Methylprednisolone Sodium Succinate 40 mg 04/03/18 10:02 04/05/18 10:00 Solu-Medrol - IVPUSH 40 mg DAILY EVELYN Administration Impression 1. hematuria 2. renal mass vs cyst 3. crohns disease 4. hx of DVT 5. vomiting 6. diarrhea 7. hx nephrolithiasis 8. hypomagnesemia Plan - cont fluids - monitor lytes - pt for possible transfer - monitor hematuria - will repeat ua once urine clears - monitor lytes Dr Roy
[2018-04-05] MEDS: FAMOTIDINE 20 MG/50 ML IVPB 20 MG/50 ML MG IVPB SCH ×2 (15:52→22:18)
--- NOTE | 2018-04-05 17:59 | PN ---
Teaching Attending Note Name of Resident: Sheridan Cervantes ATTENDING PHYSICIAN STATEMENT I saw and evaluated the patient. I reviewed the resident's note and discussed the case with the resident. I agree with the resident's findings and plan as documented. SUBJECTIVE: Patient continues to have pain, continues to have diarrhea. still not tolerating diet as much. OBJECTIVE: Vital Signs Temperature 98.1 F 04/05/18 14:15 Pulse Rate 113 H 04/05/18 14:15 Respiratory Rate 16 04/05/18 14:15 Blood Pressure 105/65 04/05/18 14:15 O2 Sat by Pulse Oximetry (%) 99 04/05/18 09:00 GENERAL: AOX3, weak in pain HEAD: NCAT, EYES: extraocular movements intact, sclera anicteric, conjunctiva clear. EARS, NOSE, THROAT: Ears normal, oropharynx clear without exudates. dry mucous membranes. NECK: Normal range of motion, supple without lymphadenopathy, JVD, or masses. LUNGS: CTAB. Left chest port. HEART: RRR, normal S1 and S2 without murmur, rub or gallop. ABDOMEN: Soft, diffuse lower abdomen mild tenderness , positive for BS , no guarding, no rebound, no masses. positive for surgical scars EXTREMITIES: 2+ pulses, warm, well-perfused. finger joints improved on steroid NEUROLOGICAL: Cranial nerves II-XII intact. Normal speech. SKIN: Warm, dry, normal turgor, no rashes or lesions noted, normal capillary refill. CBCD WBC 9.7 K/mm3 (4.0-10.0) 04/05/18 06:36 RBC 3.28 M/mm3 (3.60-5.2) L 04/05/18 06:36 Hgb 9.6 GM/dL (10.7-15.3) L 04/05/18 06:36 Hct 27.6 % (32.4-45.2) L D 04/05/18 06:36 MCV 84.1 fl (80-96) 04/05/18 06:36 MCHC 34.8 g/dl (32.0-36.0) 04/05/18 06:36 RDW 13.1 % (11.6-15.6) 04/05/18 06:36 Plt Count 378 K/MM3 (134-434) 04/05/18 06:36 MPV 7.8 fl (7.5-11.1) 04/05/18 06:36 CMP Sodium 139 mmol/L (136-145) 04/05/18 06:36 Potassium 4.2 mmol/L (3.5-5.1) 04/05/18 06:36 Chloride 107 mmol/L (98-107) 04/05/18 06:36 Carbon Dioxide 24 mmol/L (21-32) 04/05/18 06:36 Anion Gap 7 MMOL/L (8-16) L 04/05/18 06:36 BUN 5 mg/dL (7-18) L 04/05/18 06:36 Creatinine 0.6 mg/dL (0.55-1.3) 04/05/18 06:36 Creat Clearance w eGFR > 60 (>60) 04/05/18 06:36 Random Glucose 100 mg/dL (74-106) 04/05/18 06:36 Calcium 8.6 mg/dL (8.5-10.1) 04/05/18 06:36 Total Bilirubin 0.2 mg/dL (0.2-1) 04/05/18 06:36 AST 17 U/L (15-37) 04/05/18 06:36 ALT 25 U/L (13-61) 04/05/18 06:36 Alkaline Phosphatase 93 U/L (45-117) 04/05/18 06:36 Total Protein 6.0 g/dl (6.4-8.2) L 04/05/18 06:36 Albumin 3.6 g/dl (3.4-5.0) 04/05/18 06:36 Current Medications Generic Name Dose Route Start Last Admin Trade Name Freq PRN Reason Stop Dose Admin Diphenhydramine HCl 12.5 mg 04/05/18 10:33 04/05/18 15:51 Benadryl Injection - IVPB 12.5 mg Q4H PRN Administration NAUSEA AND/OR VOMITING Diphenoxylate HCl/Atropine 1 combo 04/05/18 09:51 Lomotil - PO Q8H PRN DIARRHEA Enoxaparin Sodium 40 mg 03/31/18 10:00 04/05/18 10:00 Lovenox - SQ 40 mg BID EVELYN Administration Hydrocortisone 100 mg 04/05/18 22:00 Cortenema - RC HS EVELYN Hydromorphone HCl 0.5 mg 04/04/18 15:39 04/05/18 17:02 Dilaudid Vial - IVPUSH 0.5 mg Q3H PRN Administration PAIN LEVEL 6-10 Metronidazole 500 mg in 100 mls @ 100 mls/hr 04/02/18 18:00 04/05/18 17:03 Flagyl 500mg Premixed Ivpb - IVPB 100 mls/hr Q8H-IV EVELYN Administration Levofloxacin 500 mg in 100 mls @ 100 mls/hr 04/02/18 17:15 04/05/18 09:01 Levaquin 500 Mg Premixed Ivpb - IVPB 100 mls/hr DAILY EVELYN Administration Dextrose/Sodium Chloride 40 meq in 1,000 mls @ 125 mls/hr 04/03/18 10:00 12:11 D5-1/2ns+40 Meq Kcl - IV 125 mls/hr ASDIR EVELYN Administration Famotidine/Sodium Chloride 20 mg in 50 mls @ 100 mls/hr 04/05/18 14:00 15:52 Pepcid 20 Mg Premixed Ivpb - IVPB 100 mls/hr BID EVELYN Administration Loperamide HCl 6 mg 04/03/18 10:17 04/05/18 10:00 Imodium - PO 6 mg Q6H PRN Administration DIARRHEA Methylprednisolone Sodium Succinate 40 mg 04/03/18 10:02 04/05/18 10:00 Solu-Medrol - IVPUSH 40 mg DAILY EVELYN Administration Home Medications Medication Instructions Recorded Diphenoxylate 2.5/Atropine.025 1 combo PO Q6H 03/31/18 [Lomotil -] Enoxaparin [Lovenox -] 40 mg SQ BID 03/31/18 Loperamide HCl [Imodium -] 8 mg PO QID 03/31/18 Ondansetron [Zofran -] 4 mg PO Q6H PRN 03/31/18 Pantoprazole Sodium [Protonix -] 40 mg PO DAILY 03/31/[address] scan no acute changes. 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 scan no acute changes. #Acute Nausea/Vomiting and Diarrhea continues, As per possible transfer to [facility] to the special IBD unit, patient agrees transfer once acceptance is in place. As per Dr. Leach ,discussed the case with the Wing , waiting a call from them . Also as per continue Flagyl IV and Levaquin daily. As per patient : post reversal of the colostomy increased her diarrhea, patient Takes Imodium and Lomotil daily at home but does not help. Will hold the Zofran since her QTc is in 479's. As per patient Benadryl helps her nausea and vomiting. will continue Benadryl 25mg q6h IV prn, and dilaudid 0.5mg q3h prn continue IVF if patient does not improve will try to transfer the patient to [facility] in am. #Right renal hemorrhagic hyperdense mass/ proteinaceous cyst, monitor H/H and hematuria, Urology consult Dr. Owusu seen the patient and would follow with the patient as an outpatient. 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 As soon as she is tolerating oral intake to start Sulfasalazine 1 gr BID and as soon as she is discharged, she will follow up with him for Humira - in addition to the Sulfasalazine. # Hx of PE: brenda continue lovenox therapy for now, since patient has a hypercoaguable state.will get Pulmonary to see the patient. as per GI at per pt, prior CT in 07/2017 showed no cyst #DVT Px: Lovenox 40 mg SQ BID for remote PE. Discussed with to continue pain meds iv for now. As per Dr. eLach notes: Crohn's pouchitis and/or ileitis, diarrhea is releated to her colectomy CT Scan of abdomen and pelvis : reveals no crisis, added lomotil and repeat C diff toxin screen Start Rowasa enema Await return call for [facility]
[2018-04-05] MEDS: HYDROCORTISONE 100 MG/60 ML RECTAL ENEMA RC SCH (22:28)
[2018-04-06] MEDS: D5-1/2NS+40 MEQ KCL - 40 MEQ/1,000 ML INFUS.BAG IV SCH ×3 (01:22→16:38)
[2018-04-06] MEDS: HYDROmorphone HCl 2 MG/ML VIAL IVPUSH PRN ×7 (02:36→21:00)
[2018-04-06 08:55] LABS: BASO % 0.4 % (0-2.0); EOS % 1.3 % (0-4.5); HEMATOCRIT 26.8 % (32.4-45.2); HEMOGLOBIN 9.4 GM/dL (10.7-15.3); LYMPH % 27.7 % (8-40); MCH 29.3 pg (25.7-33.7); MCHC 35.1 g/dl (32.0-36.0); MEAN CELL VOLUME 83.4 fl (80-96); MEAN PLT VOLUME 7.9 fl (7.5-11.1); MONO % 8.2 % (3.8-10.2); NEUT % 62.4 % (42.8-82.8); PLATELET COUNT 333 K/MM3 (134-434); RBC 3.21 M/mm3 (3.60-5.2); RDW 13.2 % (11.6-15.6); WHITE BLOOD COUNT 8.8 K/mm3 (4.0-10.0)
[2018-04-06] MEDS: FAMOTIDINE 20 MG/50 ML IVPB 20 MG/50 ML MG IVPB SCH ×2 (09:09→21:02)
[2018-04-06] MEDS: methylPREDNISolone NA SUCC 40 MG/1 ML VIAL IVPUSH SCH (09:13)
[2018-04-06] MEDS: ENOXAPARIN NA (PORCINE) 40 MG/0.4 ML DISP.SYRIN SQ SCH ×2 (09:14→21:02)
[2018-04-06 09:27] LABS: ANION GAP 7 MMOL/L (8-16); BLOOD UREA NITROGEN 3 mg/dL (7-18); CALCIUM 8.7 mg/dL (8.5-10.1); CHLORIDE 105 mmol/L (98-107); CO2 27 mmol/L (21-32); CREATININE 0.6 mg/dL (0.55-1.3); GLUCOSE,RANDOM 90 mg/dL (74-106); MAGNESIUM 1.7 mg/dL (1.8-2.4); PHOSPHOROUS 3.5 mg/dL (2.5-4.9); POTASSIUM 4.1 mmol/L (3.5-5.1); SODIUM 139 mmol/L (136-145)
--- NOTE | 2018-04-06 10:37 | PN ---
GI Progress Note Subjective: GI NOte: Still having pain, diarrhea and bilious vomiting. Dr Annetta Pitts from [facility] returned my call. After we discussed the case he accepted [facility] for transfer to their IBD center. I informed Valery and she is in agreement. - Objective Vital Signs: Vital Signs Temperature 97.9 F 04/06/18 06:21 Pulse Rate 89 04/06/18 06:21 Respiratory Rate 18 04/06/18 06:21 Blood Pressure 90/50 L 04/06/18 06:21 O2 Sat by Pulse Oximetry (%) 99 04/05/18 20:34 Laboratory Tests 04/05/18 04/06/18 04/06/18 06:36 07:20 07:20 Hgb 9.4 L Potassium 4.1 BUN 3 L Creatinine 0.6 Albumin 3.6 Constitutional: Anxious ...Auscultate: Yes: Normoactive Bowel Sounds ...Palpate: Yes: Soft, Tenderness (midl diffuse tenderness, no peritoneal signs) Labs: CBC, BMP 04/06/18 07:20 04/06/18 07:20 Assessment/Plan For transfer to Health system I informed Dr Arteaga Problem List - Problems (1) Abdominal pain Code(s): R10.9 - UNSPECIFIED ABDOMINAL PAIN Qualifiers: Abdominal location: unspecified location Qualified Code(s): R10.9 - Unspecified abdominal pain (2) Pouchitis Code(s): K91.850 - POUCHITIS (3) History of colectomy Code(s): Z90.49 - ACQUIRED ABSENCE OF OTHER SPECIFIED PARTS OF DIGESTIVE TRACT (4) DVT (deep venous thrombosis) Code(s): I82.409 - ACUTE EMBOLISM AND THOMBOS UNSP DEEP VN UNSP LOWER EXTREMITY (5) Pulmonary embolism Code(s): I26.99 - OTHER PULMONARY EMBOLISM WITHOUT ACUTE COR PULMONALE (6) Crohns disease Code(s): K50.90 - CROHN'S DISEASE, UNSPECIFIED, WITHOUT COMPLICATIONS Qualifiers: Gastrointestinal tract location: unspecified location Digestive disease complication type: unspecified complication Qualified Code(s): K50.919 - Crohn 's disease, unspecified, with unspecified complications (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
[2018-04-06 10:57] LABS: ACANTHOCYTES 0; ANISOCYTOSIS 0; HELMET CELLS 0; HOWELL-JOLLY BODIES 0; MACROCYTOSIS 0; OVALOCYTE 0; PLATELET ESTIMATE NORMAL; ROULEAU 0; SICKELED CELLS 0; TARGET CELLS 0; TEAR DROP CELLS 0; TOXIC GRANULATION 0
[2018-04-06] MEDS ORDERED: PT OWN MED DRAWER 7, Y5N ONE (11:29)
--- NOTE | 2018-04-06 13:35 | PN ---
Physical Exam: SUBJECTIVE: Patient seen and examined at bedside this morning. No acute events overnight. Patient reported to still have episodes of nausea, vomiting and diarrhea with abdominal pain. Patient reported new onset left lower leg pain, worsened with foot flexion that started yesterday. Otherwise denies fever, chills, chest pain, SOB, palpitations,urinary symptoms. OBJECTIVE: Vital Signs Period Temp Pulse Resp BP Sys/Newton Pulse Ox Last 24 Hr 97.7 F-98.1 F 89-119 16-18 90-115/47-67 99 GENERAL: The patient is awake, alert, and fully oriented, in no acute distress. HEAD: Normal with no signs of trauma. EYES: PERRLA, EOMI, sclera anicteric, pale conjunctivae. ENT: Ears normal, nares patent, oropharynx clear without exudates, dry mucous membranes. NECK: Trachea midline, full range of motion, supple. LUNGS: Breath sounds equal, clear to auscultation bilaterally. HEART: Regular rate and rhythm, S1, S2 without murmur, rub or gallop. ABDOMEN: Soft, +RUQ/RLQ tenderness, nondistended, normoactive bowel sounds. EXTREMITIES: 2+ pulses, warm, well-perfused, no edema. +left lower leg tenderness posteriorly NEUROLOGICAL: Cranial nerves II through XII grossly intact. Normal speech, gait not observed. PSYCH: Normal mood, normal affect. SKIN: Warm, dry, normal turgor, no rashes or lesions noted Laboratory Results - last 24 hr 04/06/18 04/06/18 07:20 07:20 WBC 8.8 RBC 3.21 L Hgb 9.4 L Hct 26.8 L MCV 83.4 MCH 29.3 MCHC 35.1 RDW 13.2 Plt Count 333 MPV 7.9 Absolute Neuts (auto) 5.5 Neutrophils % 62.4 Neutrophils % (Manual) 57.0 Band Neutrophils % 0.0 Lymphocytes % 27.7 Lymphocytes % (Manual) 36.0 D Monocytes % 8.2 Monocytes % (Manual) 6 Eosinophils % 1.3 Eosinophils % (Manual) 0.0 D Basophils % 0.4 Basophils % (Manual) 0.0 Myelocytes % (Man) 1 Promyelocytes % (Man) 0 Blast Cells % (Manual) 0 Nucleated RBC % 0 Metamyelocytes 0 Hypochromia 0 Toxic Granulation 0 Dohle Bodies 0 Platelet Estimate Normal Polychromasia 0 Poikilocytosis 0 Basophilic Stippling 0 Anisocytosis 0 Microcytosis 0 Macrocytosis 0 Spherocytes 0 Sickle Cells 0 Target Cells 0 Tear Drop Cells 0 Ovalocytes 0 Stomatocytes 0 Helmet Cells 0 [place] Bodies 0 [place] Rings 0 [place] Cells 0 Acanthocytes (Spur) 0 Rouleaux 0 Fragmented RBCs 0 Schistocytes 0 Sodium 139 Potassium 4.1 Chloride 105 Carbon Dioxide 27 Anion Gap 7 L BUN 3 L Creatinine 0.6 Creat Clearance w eGFR > 60 Random Glucose 90 Calcium 8.7 Phosphorus 3.5 Magnesium 1.7 L Active Medications Generic Name Dose Route Start Last Admin Trade Name Freq PRN Reason Stop Dose Admin Diphenhydramine HCl 12.5 mg 04/05/18 10:33 04/06/18 05:19 Benadryl Injection - IVPB 12.5 mg Q4H PRN Administration NAUSEA AND/OR VOMITING Diphenoxylate HCl/Atropine 1 combo 04/05/18 09:51 Lomotil - PO Q8H PRN DIARRHEA Enoxaparin Sodium 40 mg 03/31/18 10:00 04/06/18 09:14 Lovenox - SQ 40 mg BID EVELYN Administration Hydrocortisone 100 mg 04/05/18 22:00 04/05/18 22:28 Cortenema - RC Not Given HS EVELYN Hydromorphone HCl 0.5 mg 04/04/18 15:39 04/06/18 11:31 Dilaudid Vial - IVPUSH 0.5 mg Q3H PRN Administration PAIN LEVEL 6-10 Metronidazole 500 mg in 100 mls @ 100 mls/hr 04/02/18 18:00 04/06/18 09:45 Flagyl 500mg Premixed Ivpb - IVPB 100 mls/hr Q8H-IV EVELYN Administration Levofloxacin 500 mg in 100 mls @ 100 mls/hr 04/02/18 17:15 04/06/18 11:23 Levaquin 500 Mg Premixed Ivpb - IVPB 100 mls/hr DAILY EVELYN Administration Dextrose/Sodium Chloride 40 meq in 1,000 mls @ 125 mls/hr 04/03/18 10:00 12:02 D5-1/2ns+40 Meq Kcl - IV Not Given ASDIR EVELYN Famotidine/Sodium Chloride 20 mg in 50 mls @ 100 mls/hr 04/05/18 14:00 09:09 Pepcid 20 Mg Premixed Ivpb - IVPB 100 mls/hr BID EVELYN Administration Loperamide HCl 6 mg 04/03/18 10:17 04/05/18 10:00 Imodium - PO 6 mg Q6H PRN Administration DIARRHEA Methylprednisolone Sodium Succinate 40 mg 04/03/18 10:02 04/06/18 09:13 Solu-Medrol - IVPUSH 40 mg DAILY EVELYN Administration ASSESSMENT/PLAN: Patient is a 42 year old female with past medical history of kidney stones x2 (s /p lithotripsy/stent, 2008), appendectomy , cholecystectomy, 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 #Nausea, vomiting, diarrhea: likely 2/2 Crohn's disease vs acute gastroenteritis vs SBO -CT AP: s/p multiple abdominal surgeries with no evidence of bowel obstruction or acute pathology within the abdomen or pelvis. -GI (Dr. Lovett) consulted. Recommendations appreciated. -To consider diagnosis of pouchitis and backwash ileitis, unlikely with patient presenting with so much pain. -agree with plan to start Humira once discharged. -Patient was accepted for transfer to [facility] and transfer papers were all set. Admitting hospital recalled the transfer after knowing patient has no insurance. They recommended if case is not emergent, patient can follow-up with their GI there as outpatient. -Levaquin 500mg daily and Flagyl 500mg q8h Day 4 -Cear liquid diet. -Immodium 6mg q6h as tolerated for diarrhea. -solu-medrol 40mg daily. -Cortenema RC HS -Pepcid 20 mg BID -IV fluids: D5-1/2NS +40meq KCl @ 125ml/hr -IV benadryl 12.5mg q6 and IV dilaudid 0.5 q3h -Monitor and replete electrolytes prn -Stool for culture, C. Diff, O&P, calprotectin -Repeat CT abdomen and pelvis - no acute pathology #Hematuria: ?hemorrhagic vs proteinaceous cyst -UA (on admission): 3+ blood, 2+protein, trace LE, 746 WBC, 1026 RBC. Urine culture contaminated. -Repeat UA (04/02/18): 3+blood, 927 RBC, negative LE, no WBC. UCx - growing lactose fermenting GNB -CT AP: Hyperdense renal masses possibly representing cysts. -Renal US: morphologically normal kidneys with no evidence of nephrolithiasis, hydronephrosis, or acute pathology. The small right renal cyst does correspond to the hyperdense mass noted on the recent CT scan. The hypodense left renal mass could not be identified on the sonogram. -Nephrology (Dr. Roy) consulted. Recommendations appreciated. -continue fluids -monitor urine output -repeat labs in the morning -Patient is on Lovenox for DVTs/PE. -Urology (Dr. Day) consulted. Recommendations appreciated. -pain management as needed -follow urine culture thought ua was not suspicious for infection -will schedule outpatient cystoscopy #Polyarthritis: likely 2/2 Crohn's disease -Rheumatology (Dr. Monsivais) consulted. Recommendations appreciated. -Active arthritis 2/2 Crohn's disease with sacro-iliac involvement -X-ray of pelvis - Symmetrical hips, no sign of fracture subluxation, no sign of blastic or lytic changes. -As soon as patient is started on PO, will start Sulfasalazine 1 gr BID -On discharge,will start Humira - in addition to the Sulfasalazine. #FEN -IV D5-1/2NS +40meq KCl @ 125ml/hr -Electrolytes wnl -routine bmp monitoring -Clear liquid diet as tolerated. #Prophylaxis -Lovenox 40mg sq BID #Disposition -full code -med-surg Visit type - Emergency Visit Emergency Visit: Yes ED Registration Date: 03/31/18 Care time: The patient presented to the Emergency Department on the above date and was hospitalized for further evaluation of their emergent condition. - New Patient This patient is new to me today: No - Critical Care Critical Care patient: No
[2018-04-06] MEDS ORDERED: MAGNESIUM SULF 50% (8.12 MEQ/2 ML-1 GM VIAL) IVPB ONE (15:48)
--- NOTE | 2018-04-06 16:57 | PN ---
Progress Note, Physician History of Present Illness: Pt seen and examined. She still complains of poor appetite and diarrhea. - Current Medication List Current Medications: Active Medications Diphenhydramine HCl (Benadryl Injection -) 12.5 mg IVPB Q4H PRN PRN Reason: NAUSEA AND/OR VOMITING Last Admin: 04/06/18 16:23 Dose: 12.5 mg Diphenoxylate HCl/Atropine (Lomotil -) 1 combo PO Q8H PRN PRN Reason: DIARRHEA Enoxaparin Sodium (Lovenox -) 40 mg SQ BID [facility] Last Admin: 04/06/18 09:14 Dose: 40 mg Hydrocortisone (Cortenema -) 100 mg RC HS [facility] Last Admin: 04/05/18 22:28 Dose: Not Given Hydromorphone HCl (Dilaudid Vial -) 0.5 mg IVPUSH Q3H PRN PRN Reason: PAIN LEVEL 6-10 Last Admin: 04/06/18 14:30 Dose: 0.5 mg Metronidazole (Flagyl 500mg Premixed Ivpb -) 500 mg in 100 mls @ 100 mls/hr IVPB Q8H-IV EVELYN Last Admin: 04/06/18 09:45 Dose: 100 mls/hr Levofloxacin (Levaquin 500 Mg Premixed Ivpb -) 500 mg in 100 mls @ 100 mls/hr IVPB DAILY [facility] Last Admin: 04/06/18 11:23 Dose: 100 mls/hr Dextrose/Sodium Chloride (D5-1/2ns+40 Meq Kcl -) 40 meq in 1,000 mls @ 125 mls/ hr IV ASDIR [facility] Last Admin: 04/06/18 16:38 Dose: 125 mls/hr Famotidine/Sodium Chloride (Pepcid 20 Mg Premixed Ivpb -) 20 mg in 50 mls @ 100 mls/hr IVPB BID [facility] Last Admin: 04/06/18 09:09 Dose: 100 mls/hr Loperamide HCl (Imodium -) 6 mg PO Q6H PRN PRN Reason: DIARRHEA Last Admin: 04/05/18 10:00 Dose: 6 mg Methylprednisolone Sodium Succinate (Solu-Medrol -) 40 mg IVPUSH DAILY [facility] Last Admin: 04/06/18 09:13 Dose: 40 mg - Objective Vital Signs: Vital Signs Temperature 98.6 F 04/06/18 14:32 Pulse Rate 130 H 04/06/18 14:32 Respiratory Rate 16 04/06/18 14:32 Blood Pressure 98/69 04/06/18 14:32 O2 Sat by Pulse Oximetry (%) 99 04/05/18 20:34 Constitutional: Yes: Calm Eyes: Yes: Conjunctiva Clear HENT: Yes: Atraumatic Neck: Yes: Supple Cardiovascular: Yes: S1, S2 Respiratory: Yes: CTA Bilaterally Gastrointestinal: Yes: Soft Genitourinary: Yes: Hematuria Musculoskeletal: Yes: WNL Edema: No Neurological: Yes: Oriented Psychiatric: Yes: Oriented Labs: CBC, BMP 04/06/18 07:20 04/06/18 07:20 Problem List - Problems (1) Abdominal pain Code(s): R10.9 - UNSPECIFIED ABDOMINAL PAIN Qualifiers: Abdominal location: unspecified location Qualified Code(s): R10.9 - Unspecified abdominal pain (2) Crohns disease Code(s): K50.90 - CROHN'S DISEASE, UNSPECIFIED, WITHOUT COMPLICATIONS Qualifiers: Gastrointestinal tract location: unspecified location Digestive disease complication type: unspecified complication Qualified Code(s): K50.919 - Crohn 's disease, unspecified, with unspecified complications (3) Nausea vomiting and diarrhea Code(s): R11.2 - NAUSEA WITH VOMITING, UNSPECIFIED; R19.7 - DIARRHEA, UNSPECIFIED Assessment/Plan Current Medications Generic Name Dose Route Start Last Admin Trade Name Freq PRN Reason Stop Dose Admin Diphenhydramine HCl 12.5 mg 04/05/18 10:33 04/06/18 16:23 Benadryl Injection - IVPB 12.5 mg Q4H PRN Administration NAUSEA AND/OR VOMITING Diphenoxylate HCl/Atropine 1 combo 04/05/18 09:51 Lomotil - PO Q8H PRN DIARRHEA Enoxaparin Sodium 40 mg 03/31/18 10:00 04/06/18 09:14 Lovenox - SQ 40 mg BID EVELYN Administration Hydrocortisone 100 mg 04/05/18 22:00 04/05/18 22:28 Cortenema - RC Not Given HS EVELYN Hydromorphone HCl 0.5 mg 04/04/18 15:39 04/06/18 14:30 Dilaudid Vial - IVPUSH 0.5 mg Q3H PRN Administration PAIN LEVEL 6-10 Metronidazole 500 mg in 100 mls @ 100 mls/hr 04/02/18 18:00 04/06/18 09:45 Flagyl 500mg Premixed Ivpb - IVPB 100 mls/hr Q8H-IV EVELYN Administration Levofloxacin 500 mg in 100 mls @ 100 mls/hr 04/02/18 17:15 04/06/18 11:23 Levaquin 500 Mg Premixed Ivpb - IVPB 100 mls/hr DAILY EVELYN Administration Dextrose/Sodium Chloride 40 meq in 1,000 mls @ 125 mls/hr 04/03/18 10:00 16:38 D5-1/2ns+40 Meq Kcl - IV 125 mls/hr ASDIR EVELYN Administration Famotidine/Sodium Chloride 20 mg in 50 mls @ 100 mls/hr 04/05/18 14:00 09:09 Pepcid 20 Mg Premixed Ivpb - IVPB 100 mls/hr BID EVELYN Administration Loperamide HCl 6 mg 04/03/18 10:17 04/05/18 10:00 Imodium - PO 6 mg Q6H PRN Administration DIARRHEA Methylprednisolone Sodium Succinate 40 mg 04/03/18 10:02 04/06/18 09:13 Solu-Medrol - IVPUSH 40 mg DAILY EVELYN Administration Impression 1. hematuria 2. renal mass vs cyst 3. crohns disease 4. hx of DVT 5. vomiting 6. diarrhea 7. hx nephrolithiasis 8. hypomagnesemia Plan - replace mag - cont with fluids as she is having diarrhea - will need follow up with urology for hematuria - pt pending transfer to tertiary care center - monitor hematuria - will repeat ua once urine clears - monitor epi Roy
--- NOTE | 2018-04-06 19:02 | PN ---
Teaching Attending Note Name of Resident: Yary Arredondo ATTENDING PHYSICIAN STATEMENT I saw and evaluated the patient. I reviewed the resident's note and discussed the case with the resident. I agree with the resident's findings and plan as documented. SUBJECTIVE: Patient sitting in bed. Tearful - says she learned her father in [place] today. She reports she is still having vomiting and diarrhea everytime she eats or drinks anything. She is asking for more Dilaudid and/or Benadryl. OBJECTIVE: Vital Signs Period Temp Pulse Resp BP Sys/Newton Pulse Ox Last 24 Hr 97.7 F-98.6 F 89-130 16-18 90-115/47-74 99 HEART: S1S2, tachycardic LUNGS: Clear ABDOMEN: Soft, non-distended, (+) diffuse tenderness, normal BS EXTREMITIES: No edema Laboratory Results - last 24 hr 04/06/18 04/06/18 07:20 07:20 WBC 8.8 RBC 3.21 L Hgb 9.4 L Hct 26.8 L MCV 83.4 MCH 29.3 MCHC 35.1 RDW 13.2 Plt Count 333 MPV 7.9 Absolute Neuts (auto) 5.5 Neutrophils % 62.4 Neutrophils % (Manual) 57.0 Band Neutrophils % 0.0 Lymphocytes % 27.7 Lymphocytes % (Manual) 36.0 D Monocytes % 8.2 Monocytes % (Manual) 6 Eosinophils % 1.3 Eosinophils % (Manual) 0.0 D Basophils % 0.4 Basophils % (Manual) 0.0 Myelocytes % (Man) 1 Promyelocytes % (Man) 0 Blast Cells % (Manual) 0 Nucleated RBC % 0 Metamyelocytes 0 Hypochromia 0 Toxic Granulation 0 Dohle Bodies 0 Platelet Estimate Normal Polychromasia 0 Poikilocytosis 0 Basophilic Stippling 0 Anisocytosis 0 Microcytosis 0 Macrocytosis 0 Spherocytes 0 Sickle Cells 0 Target Cells 0 Tear Drop Cells 0 Ovalocytes 0 Stomatocytes 0 Helmet Cells 0 [place] Bodies 0 [place] Rings 0 [place] Cells 0 Acanthocytes (Spur) 0 Rouleaux 0 Fragmented RBCs 0 Schistocytes 0 Sodium 139 Potassium 4.1 Chloride 105 Carbon Dioxide 27 Anion Gap 7 L BUN 3 L Creatinine 0.6 Creat Clearance w eGFR > 60 Random Glucose 90 Calcium 8.7 Phosphorus 3.5 Magnesium 1.7 L Current Medications Generic Name Dose Route Start Last Admin Trade Name Freq PRN Reason Stop Dose Admin Diphenhydramine HCl 12.5 mg 04/05/18 10:33 04/06/18 16:23 Benadryl Injection - IVPB 12.5 mg Q4H PRN Administration NAUSEA AND/OR VOMITING Diphenoxylate HCl/Atropine 1 combo 04/05/18 09:51 Lomotil - PO Q8H PRN DIARRHEA Enoxaparin Sodium 40 mg 03/31/18 10:00 04/06/18 09:14 Lovenox - SQ 40 mg BID EVELYN Administration Hydrocortisone 100 mg 04/05/18 22:00 04/05/18 22:28 Cortenema - RC Not Given HS EVELYN Hydromorphone HCl 0.5 mg 04/04/18 15:39 04/06/18 17:32 Dilaudid Vial - IVPUSH 0.5 mg Q3H PRN Administration PAIN LEVEL 6-10 Metronidazole 500 mg in 100 mls @ 100 mls/hr 04/02/18 18:00 04/06/18 17:31 Flagyl 500mg Premixed Ivpb - IVPB 100 mls/hr Q8H-IV EVELYN Administration Levofloxacin 500 mg in 100 mls @ 100 mls/hr 04/02/18 17:15 04/06/18 11:23 Levaquin 500 Mg Premixed Ivpb - IVPB 100 mls/hr DAILY EVELYN Administration Dextrose/Sodium Chloride 40 meq in 1,000 mls @ 125 mls/hr 04/03/18 10:00 16:38 D5-1/2ns+40 Meq Kcl - IV 125 mls/hr ASDIR EVELYN Administration Famotidine/Sodium Chloride 20 mg in 50 mls @ 100 mls/hr 04/05/18 14:00 09:09 Pepcid 20 Mg Premixed Ivpb - IVPB 100 mls/hr BID EVELYN Administration Loperamide HCl 6 mg 04/03/18 10:17 04/05/18 10:00 Imodium - PO 6 mg Q6H PRN Administration DIARRHEA Methylprednisolone Sodium Succinate 40 mg 04/03/18 10:02 04/06/18 09:13 Solu-Medrol - IVPUSH 40 mg DAILY EVELYN Administration ASSESSMENT AND PLAN: This is a 42 year old woman with a history of kidney stones, appendectomy, cholecystectomy, femoral to IVC thrombosis with PE, IVC filter, Crohn's disease , total colectomy, colostomy and reversal who presented to the ED with right sided abdominal pain, nausea, vomiting, diarrhea, and hematuria. 1. Crohn's pouchitis and/or ileitis with polyarthritis - Continue IV fluid, SoluMedrol, hydrocortisone enemas, Pepcid, Levaquin, Flagyl, Imodium/Lomotil as needed for diarrhea, Dilaudid as needed for pain - Plan for transfer to [facility] - patient states there was an issue with her insurance which has been clarified and she will be transferred tomorrow - Plan to start sulfasalazine once tolerating PO and outpatient Humira 2. Hematuria - Has possible renal mass or cyst - Continue IV fluid - Outpatient urology follow up for cystoscopy 3. Hypokalemia - Improved 4. Hypomagnesemia - Supplement magnesium 5. History of DVT/PE - Has IVC filter - On Lovenox
[2018-04-06] MEDS: HYDROCORTISONE 100 MG/60 ML RECTAL ENEMA RC SCH (20:59)
[2018-04-07] MEDS: HYDROmorphone HCl 2 MG/ML VIAL IVPUSH PRN ×7 (00:31→21:42)
[2018-04-07 07:27] LABS: BASO % 0.6 % (0-2.0); EOS % 0.9 % (0-4.5); HEMATOCRIT 30.7 % (32.4-45.2); HEMOGLOBIN 9.9 GM/dL (10.7-15.3); LYMPH % 29.5 % (8-40); MCH 27.3 pg (25.7-33.7); MCHC 32.2 g/dl (32.0-36.0); MEAN PLT VOLUME 7.9 fl (7.5-11.1); MONO % 7.6 % (3.8-10.2); NEUT % 61.4 % (42.8-82.8); PLATELET COUNT 439 K/MM3 (134-434); RBC 3.62 M/mm3 (3.60-5.2); RDW 13.1 % (11.6-15.6); WHITE BLOOD COUNT 14.2 K/mm3 (4.0-10.0)
[2018-04-07 07:58] LABS: ANION GAP 8 MMOL/L (8-16); BLOOD UREA NITROGEN 4 mg/dL (7-18); CHLORIDE 104 mmol/L (98-107); CO2 27 mmol/L (21-32); CREATININE 0.7 mg/dL (0.55-1.3); GLUCOSE,RANDOM 98 mg/dL (74-106); MAGNESIUM 1.9 mg/dL (1.8-2.4); POTASSIUM 4.1 mmol/L (3.5-5.1); SODIUM 138 mmol/L (136-145)
[2018-04-07 10:08] LABS: ANISOCYTOSIS 2+; MACROCYTOSIS 0; OVALOCYTE 1+; PLATELET ESTIMATE NORMAL; TEAR DROP CELLS 1+
[2018-04-07] MEDS ORDERED: PT OWN MED DRAWER 7, Y5N ONE (10:11)
[2018-04-07] MEDS: FAMOTIDINE 20 MG/50 ML IVPB 20 MG/50 ML MG IVPB SCH ×2 (10:20→21:41)
[2018-04-07] MEDS: methylPREDNISolone NA SUCC 40 MG/1 ML VIAL IVPUSH SCH (10:20)
--- NOTE | 2018-04-07 12:00 | PN ---
GI Progress Note Subjective: For Dr. Lovett: States continued copious diarrhea, abdominal pain Continued nausea/vomiting COntinued hand pain - Objective Vital Signs: Vital Signs Temperature 98.1 F 04/07/18 06:00 Pulse Rate 108 H 04/07/18 06:00 Respiratory Rate 18 04/07/18 06:00 Blood Pressure 109/77 04/07/18 06:00 O2 Sat by Pulse Oximetry (%) 99 04/05/18 20:34 Constitutional: Calm Eyes: No: Sclera Icterus Cardiovascular: Yes: Tachycardia Respiratory: Yes: CTA Bilaterally Gastrointestinal Inspection: Yes: Scars. No: Distention ...Auscultate: Yes: Normoactive Bowel Sounds ...Palpate: Yes: Tenderness (TTP throughout abdomen) ...Percussion: No: Tympanitic Edema: No (No LE edema) Labs: CBC, BMP 04/07/18 06:30 04/07/18 06:30 Hepatic Panel Total Bilirubin 0.2 mg/dL (0.2-1) 04/05/18 06:36 AST 17 U/L (15-37) 04/05/18 06:36 ALT 25 U/L (13-61) 04/05/18 06:36 Alkaline Phosphatase 93 U/L (45-117) 04/05/18 06:36 Albumin 3.6 g/dl (3.4-5.0) 04/05/18 06:36 Problem List - Problems (1) Nausea vomiting and diarrhea Assessment/Plan: Continued symptoms [facility]waiting [facility] [place] [facility] Rheumatology follow-up Refusing antidiarrheal Code(s): R11.2 - NAUSEA WITH VOMITING, UNSPECIFIED; R19.7 - DIARRHEA, UNSPECIFIED
[2018-04-07] MEDS: ENOXAPARIN NA (PORCINE) 60 MG/0.6 ML DISP.SYRIN SQ SCH ×2 (14:58→21:40)
[2018-04-07] MEDS: D5-1/2NS+40 MEQ KCL - 40 MEQ/1,000 ML INFUS.BAG IV SCH (17:51)
--- NOTE | 2018-04-07 19:48 | PN ---
Teaching Attending Note Name of Resident: Yary Arredondo ATTENDING PHYSICIAN STATEMENT I saw and evaluated the patient. I reviewed the resident's note and discussed the case with the resident. I agree with the resident's findings and plan as documented. SUBJECTIVE: no fever or chils. complains of diarrhea still and vomiting . does not feel well . requesting dilaudid and IV benadryl OBJECTIVE: NAD CV: RRR Lungs: CTAB Abd: soft, minimal TTP in all quadrants. scars. 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 crohn's flare - cont solumedrol - decined steroid enemas - cont liquid diet - cont dilaudid and benadryl at same dose today, will start tapering tomorrow as she looks comfortable and also to avoid side effects of N/V with dilaudid . also to avoid dependence - cont IVF 2- h/o DVTS, and IVC thrombus: - change lovenox dosing to weight based from 40 BID to 50 mg BID . d/w her 3- hematuria : resolved. - f/u as out pt regarding renal masses vs cysts . pt is aware 4- dispo : transfer was canceled then re-initiated pending confirmation of her insurance status
--- NOTE | 2018-04-07 20:37 | PN ---
Physical Exam: SUBJECTIVE: Patient seen and examined at bedside this morning. No acute events overnight. Patient crying this morning, saying she doesn't want to be on PO meds today, she's already stressed at home and wants all her medications IV. She still reports episodes nausea, vomiting and diarrhea. I was able to speak with Dr. Castillo at [facility]. Patient is okay for transfer pending approval of her insurance ([employer]) and bed availability. As per Dr. Castillo, he recommended to decrease dose of benadryl and dilaudid. OBJECTIVE: Vital Signs Period Temp Pulse Resp BP Sys/Newton Pulse Ox Last 24 Hr 97.8 F-98.4 F 84-119 18-20 93-112/59-78 99 GENERAL: The patient is awake, alert, and fully oriented, in no acute distress. HEAD: Normal with no signs of trauma. EYES: PERRLA, EOMI, sclera anicteric, pale conjunctivae. ENT: Ears normal, nares patent, oropharynx clear without exudates, dry mucous membranes. NECK: Trachea midline, full range of motion, supple. LUNGS: Breath sounds equal, clear to auscultation bilaterally. HEART: Regular rate and rhythm, S1, S2 without murmur, rub or gallop. ABDOMEN: Soft, +LLQ/RLQ tenderness, nondistended, normoactive bowel sounds. EXTREMITIES: 2+ pulses, warm, well-perfused, no edema. NEUROLOGICAL: Cranial nerves II through XII grossly intact. Normal speech, gait not observed. PSYCH: Normal mood, normal affect. SKIN: Warm, dry, normal turgor, no rashes or lesions noted Laboratory Results - last 24 hr 03/31/18 04/04/18 04/07/18 19:02 07:00 06:30 WBC 14.2 H RBC 3.62 Hgb 9.9 L Hct 30.7 L MCV 85.0 MCH 27.3 MCHC 32.2 RDW 13.1 Plt Count 439 H D MPV 7.9 Absolute Neuts (auto) 8.7 H Neutrophils % 61.4 Neutrophils % (Manual) 57.0 Band Neutrophils % 0.0 Lymphocytes % 29.5 Lymphocytes % (Manual) 32.0 Monocytes % 7.6 Monocytes % (Manual) 6 Eosinophils % 0.9 Eosinophils % (Manual) 1.0 D Basophils % 0.6 Basophils % (Manual) 1.0 D Myelocytes % (Man) 0 D Promyelocytes % (Man) 0 Blast Cells % (Manual) 0 Nucleated RBC % 0 Metamyelocytes 0 Hypochromia 0 Platelet Estimate Normal Polychromasia 1+ Poikilocytosis 0 Anisocytosis 2+ Microcytosis 0 Macrocytosis 0 Spherocytes 1+ Tear Drop Cells 1+ Ovalocytes 1+ [place] Cells 1+ Sodium Potassium Chloride Carbon Dioxide Anion Gap BUN Creatinine Creat Clearance w eGFR Random Glucose Calcium Magnesium Stool O & P Wet [place].cerevisiae IgG Ab 40.3 H S. cerevisiae IgG/IgA 23.1 O & P Permanent Slide Final report 04/07/18 06:30 WBC RBC Hgb Hct MCV MCH MCHC RDW Plt Count MPV Absolute Neuts (auto) Neutrophils % Neutrophils % (Manual) Band Neutrophils % Lymphocytes % Lymphocytes % (Manual) Monocytes % Monocytes % (Manual) Eosinophils % Eosinophils % (Manual) Basophils % Basophils % (Manual) Myelocytes % (Man) Promyelocytes % (Man) Blast Cells % (Manual) Nucleated RBC % Metamyelocytes Hypochromia Platelet Estimate Polychromasia Poikilocytosis Anisocytosis Microcytosis Macrocytosis Spherocytes Tear Drop Cells Ovalocytes [place] Cells Sodium 138 Potassium 4.1 Chloride 104 Carbon Dioxide 27 Anion Gap 8 BUN 4 L Creatinine 0.7 Creat Clearance w eGFR > 60 Random Glucose 98 Calcium 9.0 Magnesium 1.9 Stool O & P Wet [place].cerevisiae IgG Ab S. cerevisiae IgG/IgA O & P Permanent Slide Active Medications Generic Name Dose Route Start Last Admin Trade Name Freq PRN Reason Stop Dose Admin Diphenhydramine HCl 12.5 mg 04/05/18 10:33 04/07/18 18:16 Benadryl Injection - IVPB 12.5 mg Q4H PRN Administration NAUSEA AND/OR VOMITING Diphenoxylate HCl/Atropine 1 combo 04/05/18 09:51 Lomotil - PO Q8H PRN DIARRHEA Enoxaparin Sodium 50 mg 04/07/18 14:15 04/07/18 14:58 Lovenox - SQ 50 mg BID EVELYN Administration Hydromorphone HCl 0.5 mg 04/07/18 18:15 04/07/18 18:26 Dilaudid Vial - IVPUSH 0.5 mg Q3H PRN Administration PAIN LEVEL 6-10 Metronidazole 500 mg in 100 mls @ 100 mls/hr 04/02/18 18:00 04/07/18 17:52 Flagyl 500mg Premixed Ivpb - IVPB 100 mls/hr Q8H-IV EVELYN Administration Dextrose/Sodium Chloride 40 meq in 1,000 mls @ 125 mls/hr 04/03/18 10:00 17:51 D5-1/2ns+40 Meq Kcl - IV 125 mls/hr ASDIR EVELYN Administration Famotidine/Sodium Chloride 20 mg in 50 mls @ 100 mls/hr 04/05/18 14:00 10:20 Pepcid 20 Mg Premixed Ivpb - IVPB 100 mls/hr BID EVELYN Administration Loperamide HCl 6 mg 04/03/18 10:17 04/05/18 10:00 Imodium - PO 6 mg Q6H PRN Administration DIARRHEA Methylprednisolone Sodium Succinate 40 mg 04/03/18 10:02 04/07/18 10:20 Solu-Medrol - IVPUSH 40 mg DAILY EVELYN Administration ASSESSMENT/PLAN: Patient is a 42 year old female with past medical history of kidney stones x2 (s /p lithotripsy/stent, 2008), appendectomy , cholecystectomy, 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 #Nausea, vomiting, diarrhea: likely 2/2 Crohn's disease vs acute gastroenteritis vs SBO -CT AP: s/p multiple abdominal surgeries with no evidence of bowel obstruction or acute pathology within the abdomen or pelvis. -GI consulted. Recommendations appreciated. -To consider diagnosis of pouchitis and backwash ileitis, unlikely with patient presenting with so much pain. -agree with plan to start Humira once discharged. -Patient was accepted for transfer to [facility] and transfer papers are all set. Hospital will confirm validity of insurance, then will transfer patient. -Levaquin 500mg daily and Flagyl 500mg q8h Day 5 -Cear liquid diet. -Immodium 6mg q6h as tolerated for diarrhea. -solu-medrol 40mg daily. -Cortenema RC HS discontinued. -Pepcid 20 mg BID -IV fluids: D5-1/2NS +40meq KCl @ 125ml/hr -IV benadryl 12.5mg q4 and IV dilaudid 0.5 q3h -Monitor and replete electrolytes prn -Stool for culture, C. Diff, O&P, calprotectin -Repeat CT abdomen and pelvis - no acute pathology #Hematuria: ?hemorrhagic vs proteinaceous cyst -UA (on admission): 3+ blood, 2+protein, trace LE, 746 WBC, 1026 RBC. Urine culture contaminated. -Repeat UA (04/02/18): 3+blood, 927 RBC, negative LE, no WBC. UCx - growing lactose fermenting GNB -CT AP: Hyperdense renal masses possibly representing cysts. -Renal US: morphologically normal kidneys with no evidence of nephrolithiasis, hydronephrosis, or acute pathology. The small right renal cyst does correspond to the hyperdense mass noted on the recent CT scan. The hypodense left renal mass could not be identified on the sonogram. -Nephrology (Dr. Roy) consulted. Recommendations appreciated. -continue fluids -monitor urine output -repeat labs in the morning -Patient is on Lovenox for DVTs/PE. -Urology (Dr. Day) consulted. Recommendations appreciated. -pain management as needed -follow urine culture thought ua was not suspicious for infection -will schedule outpatient cystoscopy #Polyarthritis: likely 2/2 Crohn's disease: improving -Rheumatology (Dr. Monsivais) consulted. Recommendations appreciated. -Active arthritis 2/2 Crohn's disease with sacro-iliac involvement -X-ray of pelvis - Symmetrical hips, no sign of fracture subluxation, no sign of blastic or lytic changes. -As soon as patient is started on PO, will start Sulfasalazine 1 gr BID -On discharge,will start Humira - in addition to the Sulfasalazine. #FEN -IV D5-1/2NS +40meq KCl @ 125ml/hr -Electrolytes wnl -routine bmp monitoring -Clear liquid diet as tolerated. #Prophylaxis -Lovenox 50mg sq BID #Disposition -full code -med-surg Visit type - Emergency Visit Emergency Visit: Yes ED Registration Date: 03/31/18 Care time: The patient presented to the Emergency Department on the above date and was hospitalized for further evaluation of their emergent condition. - New Patient This patient is new to me today: No - Critical Care Critical Care patient: No
[2018-04-08] MEDS ORDERED: PORTA CATH FLUSH 10 ML IVPUSH ONE (01:20)
[2018-04-08] MEDS: HYDROmorphone HCl 2 MG/ML VIAL IVPUSH PRN ×2 (02:23→06:14)
[2018-04-08 08:27] LABS: BASO % 0.4 % (0-2.0); HEMATOCRIT 28.8 % (32.4-45.2); HEMOGLOBIN 9.2 GM/dL (10.7-15.3); MCH 27.3 pg (25.7-33.7); MCHC 31.9 g/dl (32.0-36.0); MEAN CELL VOLUME 85.7 fl (80-96); MEAN PLT VOLUME 7.8 fl (7.5-11.1); MONO % 7.6 % (3.8-10.2); PLATELET COUNT 314 K/MM3 (134-434); RBC 3.36 M/mm3 (3.60-5.2); RDW 13.2 % (11.6-15.6); WHITE BLOOD COUNT 11.5 K/mm3 (4.0-10.0)
[2018-04-08 08:58] LABS: BLOOD UREA NITROGEN 3 mg/dL (7-18); CHLORIDE 105 mmol/L (98-107); CREATININE 0.7 mg/dL (0.55-1.3); GLUCOSE,RANDOM 91 mg/dL (74-106); POTASSIUM 4.1 mmol/L (3.5-5.1); SODIUM 139 mmol/L (136-145)
[2018-04-08 08:59] LABS: ANION GAP 7 MMOL/L (8-16); CALCIUM 8.9 mg/dL (8.5-10.1); CO2 27 mmol/L (21-32); MAGNESIUM 1.8 mg/dL (1.8-2.4); PHOSPHOROUS 3.8 mg/dL (2.5-4.9)
[2018-04-08] MEDS ORDERED: PT OWN MED DRAWER 7, Y5N ONE (09:42)
[2018-04-08] MEDS: FAMOTIDINE 20 MG/50 ML IVPB 20 MG/50 ML MG IVPB SCH ×2 (10:10→21:22)
[2018-04-08] MEDS: ENOXAPARIN NA (PORCINE) 60 MG/0.6 ML DISP.SYRIN SQ SCH ×2 (10:11→21:22)
[2018-04-08] MEDS: methylPREDNISolone NA SUCC 40 MG/1 ML VIAL IVPUSH SCH (10:11)
[2018-04-08 10:13] LABS: ANISOCYTOSIS 0; MACROCYTOSIS 0; PLATELET ESTIMATE NORMAL
[2018-04-08] MEDS: HYDROmorphone HCl 2 MG/ML VIAL IVPB PRN ×3 (12:09→23:25)
--- NOTE | 2018-04-08 13:31 | PN ---
Teaching Attending Note Name of Resident: Yary Arredondo ATTENDING PHYSICIAN STATEMENT I saw and evaluated the patient. I reviewed the resident's note and discussed the case with the resident. I agree with the resident's findings and plan as documented. SUBJECTIVE: No fever or chills . cont to have diarrhea , n/V OBJECTIVE: NAD, comfortable and cooperative CV: RRR Lungs: CTAB Abd: soft, minimal TTP in all quadrants. old surgical scars. 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 crohn's flare - cont solumedrol - will ask GI if Abx are still needed - cont liquid diet - decrease dilaudid to 0.5 q 6h . cont benadryl at same dose - cont IVF 2- h/o DVTs, and IVC thrombus: - cont Lovenox 50 mg BID 3- Hematuria : resolved. - f/u as out pt regarding renal masses vs cysts. 4- dispo : Transfer to [facility] is still pending
[2018-04-08] MEDS: D5-1/2NS+40 MEQ KCL - 40 MEQ/1,000 ML INFUS.BAG IV SCH (14:21)
--- NOTE | 2018-04-08 16:45 | PN ---
Progress Note, Physician History of Present Illness: Pt seen and examined at bedside. She is awake and alert. She still has vomiting and diarrhea. She is not tolerating diet. - Current Medication List Current Medications: Active Medications Diphenhydramine HCl (Benadryl Injection -) 12.5 mg IVPB Q4H PRN PRN Reason: NAUSEA AND/OR VOMITING Last Admin: 04/08/18 14:22 Dose: 12.5 mg Enoxaparin Sodium (Lovenox -) 50 mg SQ BID [facility] Last Admin: 04/08/18 10:11 Dose: 50 mg Hydromorphone HCl (Dilaudid Vial -) 0.5 mg IVPB Q6H PRN PRN Reason: PAIN LEVEL 6-10 Last Admin: 04/08/18 12:09 Dose: 0.5 mg Metronidazole (Flagyl 500mg Premixed Ivpb -) 500 mg in 100 mls @ 100 mls/hr IVPB Q8H-IV EVELYN Last Admin: 04/08/18 10:11 Dose: 100 mls/hr Dextrose/Sodium Chloride (D5-1/2ns+40 Meq Kcl -) 40 meq in 1,000 mls @ 125 mls/ hr IV ASDIR [facility] Last Admin: 04/08/18 14:21 Dose: 125 mls/hr Famotidine/Sodium Chloride (Pepcid 20 Mg Premixed Ivpb -) 20 mg in 50 mls @ 100 mls/hr IVPB BID [facility] Last Admin: 04/08/18 10:10 Dose: 100 mls/hr Loperamide HCl (Imodium -) 6 mg PO Q6H PRN PRN Reason: DIARRHEA Last Admin: 04/05/18 10:00 Dose: 6 mg Methylprednisolone Sodium Succinate (Solu-Medrol -) 40 mg IVPUSH DAILY [facility] Last Admin: 04/08/18 10:11 Dose: 40 mg - Objective Vital Signs: Vital Signs Temperature 98.4 F 04/08/18 15:30 Pulse Rate 115 H 04/08/18 15:30 Respiratory Rate 18 04/08/18 15:30 Blood Pressure 92/54 L 04/08/18 15:30 O2 Sat by Pulse Oximetry (%) 99 04/08/18 09:00 Constitutional: Yes: Calm Eyes: Yes: Conjunctiva Clear HENT: Yes: Atraumatic Neck: Yes: Supple Cardiovascular: Yes: S1, S2 Respiratory: Yes: CTA Bilaterally Gastrointestinal: Yes: Soft Genitourinary: Yes: WNL Musculoskeletal: Yes: WNL Edema: No Neurological: Yes: Oriented Psychiatric: Yes: Oriented Labs: CBC, BMP 04/08/18 07:30 04/08/18 07:30 Problem List - Problems (1) Abdominal pain Code(s): R10.9 - UNSPECIFIED ABDOMINAL PAIN Qualifiers: Abdominal location: unspecified location Qualified Code(s): R10.9 - Unspecified abdominal pain (2) Crohns disease Code(s): K50.90 - CROHN'S DISEASE, UNSPECIFIED, WITHOUT COMPLICATIONS Qualifiers: Gastrointestinal tract location: unspecified location Digestive disease complication type: unspecified complication Qualified Code(s): K50.919 - Crohn 's disease, unspecified, with unspecified complications (3) Nausea vomiting and diarrhea Code(s): R11.2 - NAUSEA WITH VOMITING, UNSPECIFIED; R19.7 - DIARRHEA, UNSPECIFIED Assessment/Plan Current Medications Generic Name Dose Route Start Last Admin Trade Name Freq PRN Reason Stop Dose Admin Diphenhydramine HCl 12.5 mg 04/05/18 10:33 04/08/18 14:22 Benadryl Injection - IVPB 12.5 mg Q4H PRN Administration NAUSEA AND/OR VOMITING Enoxaparin Sodium 50 mg 04/07/18 14:15 04/08/18 10:11 Lovenox - SQ 50 mg BID EVELYN Administration Hydromorphone HCl 0.5 mg 04/08/18 09:01 04/08/18 12:09 Dilaudid Vial - IVPB 0.5 mg Q6H PRN Administration PAIN LEVEL 6-10 Metronidazole 500 mg in 100 mls @ 100 mls/hr 04/02/18 18:00 04/08/18 10:11 Flagyl 500mg Premixed Ivpb - IVPB 100 mls/hr Q8H-IV EVELYN Administration Dextrose/Sodium Chloride 40 meq in 1,000 mls @ 125 mls/hr 04/03/18 10:00 14:21 D5-1/2ns+40 Meq Kcl - IV 125 mls/hr ASDIR EVELYN Administration Famotidine/Sodium Chloride 20 mg in 50 mls @ 100 mls/hr 04/05/18 14:00 10:10 Pepcid 20 Mg Premixed Ivpb - IVPB 100 mls/hr BID EVELYN Administration Loperamide HCl 6 mg 04/03/18 10:17 04/05/18 10:00 Imodium - PO 6 mg Q6H PRN Administration DIARRHEA Methylprednisolone Sodium Succinate 40 mg 04/03/18 10:02 04/08/18 10:11 Solu-Medrol - IVPUSH 40 mg DAILY EVELYN Administration Impression 1. hematuria 2. renal mass vs cyst 3. crohns disease 4. hx of DVT 5. vomiting 6. diarrhea 7. hx nephrolithiasis 8. hypomagnesemia Plan - cont fluids - monitor lytes - pt pending transfer to tertiary care center - will need follow up with urology for hematuria - monitor hematuria - will repeat ua once urine clears Dr Roy
--- NOTE | 2018-04-08 17:57 | PN ---
Physical Exam: SUBJECTIVE: Patient seen and examined at bedside this morning. No acute events overnight. Patient still up for transfer awaiting insurance confirmation and bed availability of [facility]. She still reported nausea, vomiting and diarrhea. OBJECTIVE: Vital Signs Period Temp Pulse Resp BP Sys/Newton Pulse Ox Last 24 Hr 97.9 F-98.4 F 89-117 18-20 91-112/54-82 99 GENERAL: The patient is awake, alert, and fully oriented, in no acute distress. HEAD: Normal with no signs of trauma. EYES: PERRLA, EOMI, sclera anicteric, pale conjunctivae. ENT: Ears normal, nares patent, oropharynx clear without exudates, dry mucous membranes. NECK: Trachea midline, full range of motion, supple. LUNGS: Breath sounds equal, clear to auscultation bilaterally. HEART: Regular rate and rhythm, S1, S2 without murmur, rub or gallop. ABDOMEN: Soft, +LLQ/RLQ tenderness, nondistended, normoactive bowel sounds. EXTREMITIES: 2+ pulses, warm, well-perfused, no edema. NEUROLOGICAL: Cranial nerves II through XII grossly intact. Normal speech, gait not observed. PSYCH: Normal mood, normal affect. SKIN: Warm, dry, normal turgor, no rashes or lesions noted Laboratory Results - last 24 hr 03/31/18 04/08/18 04/08/18 19:02 07:30 07:30 WBC 11.5 H RBC 3.36 L Hgb 9.2 L Hct 28.8 L MCV 85.7 MCH 27.3 MCHC 31.9 L RDW 13.2 Plt Count 314 D MPV 7.8 Absolute Neuts (auto) 7.2 Neutrophils % 63.0 Neutrophils % (Manual) 58.0 Band Neutrophils % 1.0 Lymphocytes % 28.0 Lymphocytes % (Manual) 32.0 Monocytes % 7.6 Monocytes % (Manual) 5 Eosinophils % 1.0 Eosinophils % (Manual) 3.0 D Basophils % 0.4 Basophils % (Manual) 0.0 Myelocytes % (Man) 1 D Promyelocytes % (Man) 0 Blast Cells % (Manual) 0 Nucleated RBC % 0 Metamyelocytes 0 Hypochromia 0 Platelet Estimate Normal Platelet Comment Present Polychromasia 0 Poikilocytosis 0 Anisocytosis 0 Microcytosis 0 Macrocytosis 0 Sodium 139 Potassium 4.1 Chloride 105 Carbon Dioxide 27 Anion Gap 7 L BUN 3 L Creatinine 0.7 Creat Clearance w eGFR > 60 Random Glucose 91 Calcium 8.9 Phosphorus 3.8 Magnesium 1.8 Stool Calprotectin < 16 Active Medications Generic Name Dose Route Start Last Admin Trade Name Freq PRN Reason Stop Dose Admin Diphenhydramine HCl 12.5 mg 04/05/18 10:33 04/08/18 14:22 Benadryl Injection - IVPB 12.5 mg Q4H PRN Administration NAUSEA AND/OR VOMITING Enoxaparin Sodium 50 mg 04/07/18 14:15 04/08/18 10:11 Lovenox - SQ 50 mg BID EVELYN Administration Hydromorphone HCl 0.5 mg 04/08/18 09:01 04/08/18 12:09 Dilaudid Vial - IVPB 0.5 mg Q6H PRN Administration PAIN LEVEL 6-10 Metronidazole 500 mg in 100 mls @ 100 mls/hr 04/02/18 18:00 04/08/18 10:11 Flagyl 500mg Premixed Ivpb - IVPB 100 mls/hr Q8H-IV EVELYN Administration Dextrose/Sodium Chloride 40 meq in 1,000 mls @ 125 mls/hr 04/03/18 10:00 14:21 D5-1/2ns+40 Meq Kcl - IV 125 mls/hr ASDIR EVELYN Administration Famotidine/Sodium Chloride 20 mg in 50 mls @ 100 mls/hr 04/05/18 14:00 10:10 Pepcid 20 Mg Premixed Ivpb - IVPB 100 mls/hr BID EVELYN Administration Loperamide HCl 6 mg 04/03/18 10:17 04/05/18 10:00 Imodium - PO 6 mg Q6H PRN Administration DIARRHEA Methylprednisolone Sodium Succinate 40 mg 04/03/18 10:02 04/08/18 10:11 Solu-Medrol - IVPUSH 04/09/18 06:00 40 mg DAILY EVELYN Administration Methylprednisolone Sodium Succinate 30 mg 04/09/18 10:00 Solu-Medrol - IVPUSH DAILY EVELYN ASSESSMENT/PLAN: Patient is a 42 year old female with past medical history of kidney stones x2 (s /p lithotripsy/stent, 2008), appendectomy , cholecystectomy, 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 #Nausea, vomiting, diarrhea: likely 2/2 Crohn's disease vs acute gastroenteritis vs SBO -CT AP: s/p multiple abdominal surgeries with no evidence of bowel obstruction or acute pathology within the abdomen or pelvis. -GI consulted. Recommendations appreciated. -To consider diagnosis of pouchitis and backwash ileitis, unlikely with patient presenting with so much pain. -agree with plan to start Humira once discharged. -Patient was accepted for transfer to [facility] and transfer papers are all set. Hospital will confirm validity of insurance, then will transfer patient. -Levaquin 500mg daily and Flagyl 500mg q8h Day 6 -Cear liquid diet. -Immodium 6mg q6h as tolerated for diarrhea. -solu-medrol 40mg daily. -Pepcid 20 mg BID -IV fluids: D5-1/2NS +40meq KCl @ 125ml/hr -IV benadryl 12.5mg q4 and IV dilaudid 0.5 q6h -Monitor and replete electrolytes prn -Stool for culture, C. Diff, O&P, calprotectin -Repeat CT abdomen and pelvis - no acute pathology #Hematuria: ?hemorrhagic vs proteinaceous cyst -UA (on admission): 3+ blood, 2+protein, trace LE, 746 WBC, 1026 RBC. Urine culture contaminated. -Repeat UA (04/02/18): 3+blood, 927 RBC, negative LE, no WBC. UCx - growing lactose fermenting GNB -CT AP: Hyperdense renal masses possibly representing cysts. -Renal US: morphologically normal kidneys with no evidence of nephrolithiasis, hydronephrosis, or acute pathology. The small right renal cyst does correspond to the hyperdense mass noted on the recent CT scan. The hypodense left renal mass could not be identified on the sonogram. -Nephrology (Dr. Roy) consulted. Recommendations appreciated. -continue fluids -monitor urine output -repeat labs in the morning -Patient is on Lovenox for DVTs/PE. -Urology (Dr. Day) consulted. Recommendations appreciated. -pain management as needed -follow urine culture thought ua was not suspicious for infection -will schedule outpatient cystoscopy #Polyarthritis: likely 2/2 Crohn's disease: improving -Rheumatology (Dr. Monsivais) consulted. Recommendations appreciated. -Active arthritis 2/2 Crohn's disease with sacro-iliac involvement -X-ray of pelvis - Symmetrical hips, no sign of fracture subluxation, no sign of blastic or lytic changes. -As soon as patient is started on PO, will start Sulfasalazine 1 gr BID -On discharge,will start Humira - in addition to the Sulfasalazine. #FEN -IV D5-1/2NS +40meq KCl @ 125ml/hr -Electrolytes wnl -routine bmp monitoring -Clear liquid diet as tolerated. #Prophylaxis -Lovenox 50mg sq BID #Disposition -full code -med-surg Visit type - Emergency Visit Emergency Visit: Yes ED Registration Date: 03/31/18 Care time: The patient presented to the Emergency Department on the above date and was hospitalized for further evaluation of their emergent condition. - New Patient This patient is new to me today: No - Critical Care Critical Care patient: No
[2018-04-09] MEDS: HYDROmorphone HCl 2 MG/ML VIAL IVPB PRN ×6 (05:18→23:30)
[2018-04-09 07:20] LABS: HEMATOCRIT 32.4 % (32.4-45.2); HEMOGLOBIN 10.4 GM/dL (10.7-15.3); MCH 27.5 pg (25.7-33.7); MCHC 32.1 g/dl (32.0-36.0); MEAN CELL VOLUME 85.7 fl (80-96); PLATELET COUNT 340 K/MM3 (134-434); RBC 3.78 M/mm3 (3.60-5.2); RDW 13.2 % (11.6-15.6); WHITE BLOOD COUNT 14.3 K/mm3 (4.0-10.0)
[2018-04-09 07:47] LABS: ANION GAP 7 MMOL/L (8-16); BLOOD UREA NITROGEN 6 mg/dL (7-18); CALCIUM 8.7 mg/dL (8.5-10.1); CHLORIDE 105 mmol/L (98-107); CO2 27 mmol/L (21-32); CREATININE 0.7 mg/dL (0.55-1.3); GLUCOSE,RANDOM 95 mg/dL (74-106); MAGNESIUM 1.8 mg/dL (1.8-2.4); PHOSPHOROUS 4.1 mg/dL (2.5-4.9); SODIUM 139 mmol/L (136-145)
[2018-04-09] MEDS: FAMOTIDINE 20 MG/50 ML IVPB 20 MG/50 ML MG IVPB SCH ×2 (10:20→21:29)
[2018-04-09] MEDS: ENOXAPARIN NA (PORCINE) 60 MG/0.6 ML DISP.SYRIN SQ SCH ×2 (10:20→21:29)
[2018-04-09] MEDS: methylPREDNISolone NA SUCC 40 MG/1 ML VIAL IVPUSH SCH (10:21)
[2018-04-09] MEDS: D5-1/2NS+40 MEQ KCL - 40 MEQ/1,000 ML INFUS.BAG IV SCH ×2 (10:22→21:30)
--- NOTE | 2018-04-09 11:43 | PN ---
Teaching Attending Note Name of Resident: Carly George ATTENDING PHYSICIAN STATEMENT I saw and evaluated the patient. I reviewed the resident's note and discussed the case with the resident. I agree with the resident's findings and plan as documented. SUBJECTIVE: No fever or chills . cont to have N/V. cont to have Abd pain. requests more dilaudid OBJECTIVE: NAD, comfortable and cooperative CV: RRR Lungs: CTAB Abd: soft, minimal TTP in all quadrants. old surgical scars. 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 crohn's flare - cont solumedrol - will ask GI if Abx are still needed - cont liquid diet - cont dilaudid to 0.5 q 6h. cont benadryl at same dose - cont IVF - avoid more narcotics due to the severe N/V she has, and to avoid dependence - will consult pain management 2- h/o DVTs, and IVC thrombus: - cont Lovenox 50 mg BID 3- Hematuria : resolved. - f/u as out pt regarding renal masses vs cysts. 4- Dispo : Transfer to [facility] is still pending
--- NOTE | 2018-04-09 11:48 | PN ---
GI Progress Note Subjective: see the adjacent completed note - Objective Vital Signs: Vital Signs Temperature 98.0 F 04/09/18 05:00 Pulse Rate 118 H 04/09/18 05:00 Respiratory Rate 20 04/09/18 05:00 Blood Pressure 98/56 L 04/09/18 05:00 O2 Sat by Pulse Oximetry (%) 99 04/08/18 09:00 Labs: CBC, BMP 04/09/18 07:00 04/09/18 07:00 Problem List - Problems (1) Abdominal pain Code(s): R10.9 - UNSPECIFIED ABDOMINAL PAIN Qualifiers: Abdominal location: unspecified location Qualified Code(s): R10.9 - Unspecified abdominal pain (2) Pouchitis Code(s): K91.850 - POUCHITIS (3) History of colectomy Code(s): Z90.49 - ACQUIRED ABSENCE OF OTHER SPECIFIED PARTS OF DIGESTIVE TRACT (4) DVT (deep venous thrombosis) Code(s): I82.409 - ACUTE EMBOLISM AND THOMBOS UNSP DEEP VN UNSP LOWER EXTREMITY (5) Pulmonary embolism Code(s): I26.99 - OTHER PULMONARY EMBOLISM WITHOUT ACUTE COR PULMONALE (6) Crohns disease Code(s): K50.90 - CROHN'S DISEASE, UNSPECIFIED, WITHOUT COMPLICATIONS Qualifiers: Gastrointestinal tract location: unspecified location Digestive disease complication type: unspecified complication Qualified Code(s): K50.919 - Crohn 's disease, unspecified, with unspecified complications (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
--- NOTE | 2018-04-09 12:02 | PN ---
GI Progress Note Subjective: GI NOtes: Recent events noted. When I challenged Valery about the vending machine, insurance etc. she explained that she only bought gum at the machine. 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 I have sent a message to Dr Pitts at [facility] IBD unit to see whether or not they will still accept her in transfer. - Objective Vital Signs: Vital Signs Temperature 98.0 F 04/09/18 05:00 Pulse Rate 118 H 04/09/18 05:00 Respiratory Rate 20 04/09/18 05:00 Blood Pressure 98/56 L 04/09/18 05:00 O2 Sat by Pulse Oximetry (%) 99 04/08/18 09:00 CBC,CMP WBC 14.3 K/mm3 (4.0-10.0) H 04/09/18 07:00 RBC 3.78 M/mm3 (3.60-5.2) 04/09/18 07:00 Hgb 10.4 GM/dL (10.7-15.3) L 04/09/18 07:00 Hct 32.4 % (32.4-45.2) 04/09/18 07:00 MCV 85.7 fl (80-96) 04/09/18 07:00 MCH 27.5 pg (25.7-33.7) 04/09/18 07:00 MCHC 32.1 g/dl (32.0-36.0) 04/09/18 07:00 RDW 13.2 % (11.6-15.6) 04/09/18 07:00 Plt Count 340 K/MM3 (134-434) 04/09/18 07:00 MPV 8.0 fl (7.5-11.1) 04/09/18 07:00 Absolute Neuts (auto) 7.2 K/mm3 (1.5-8.0) 04/08/18 07:30 Neutrophils % 63.0 % (42.8-82.8) 04/08/18 07:30 Neutrophils % (Manual) 58.0 % (42.8-82.8) 04/08/18 07:30 Band Neutrophils % 1.0 % 04/08/18 07:30 Lymphocytes % 28.0 % (8-40) 04/08/18 07:30 Lymphocytes % (Manual) 32.0 % (8-40) 04/08/18 07:30 Monocytes % 7.6 % (3.8-10.2) 04/08/18 07:30 Monocytes % (Manual) 5 % (3.8-10.2) 04/08/18 07:30 Eosinophils % 1.0 % (0-4.5) 04/08/18 07:30 Eosinophils % (Manual) 3.0 % (0-4.5) D 04/08/18 07:30 Basophils % 0.4 % (0-2.0) 04/08/18 07:30 Basophils % (Manual) 0.0 % (0-2.0) 04/08/18 07:30 Myelocytes % (Man) 1 % (0-2) D 04/08/18 07:30 Promyelocytes % (Man) 0 % (0-2) 04/08/18 07:30 Blast Cells % (Manual) 0 % (0-0) 04/08/18 07:30 Nucleated RBC % 0 % (0-0) 04/08/18 07:30 Metamyelocytes 0 % (0-2) 04/08/18 07:30 Hypochromia 0 04/08/18 07:30 Toxic Granulation 0 04/06/18 07:20 Dohle Bodies 0 04/06/18 07:20 Platelet Estimate Normal 04/08/18 07:30 Platelet Comment Present 04/08/18 07:30 Polychromasia 0 04/08/18 07:30 Poikilocytosis 0 04/08/18 07:30 Basophilic Stippling 0 04/06/18 07:20 Anisocytosis 0 04/08/18 07:30 Microcytosis 0 04/08/18 07:30 Macrocytosis 0 04/08/18 07:30 Spherocytes 1+ 04/07/18 06:30 Sickle Cells 0 04/06/18 07:20 Target Cells 0 04/06/18 07:20 Tear Drop Cells 1+ 04/07/18 06:30 Ovalocytes 1+ 04/07/18 06:30 Stomatocytes 0 04/06/18 07:20 Helmet Cells 0 04/06/18 07:20 [place] Bodies 0 04/06/18 07:20 [place] Rings 0 04/06/18 07:20 [place] Cells 1+ 04/07/18 06:30 Acanthocytes (Spur) 0 04/06/18 07:20 Rouleaux 0 04/06/18 07:20 Fragmented RBCs 0 04/06/18 07:20 Schistocytes 0 04/06/18 07:20 ESR 43 mm/hr (0-20) H 03/31/18 00:05 Sodium 139 mmol/L (136-145) 04/09/18 07:00 Potassium 4.0 mmol/L (3.5-5.1) 04/09/18 07:00 Chloride 105 mmol/L (98-107) 04/09/18 07:00 Carbon Dioxide 27 mmol/L (21-32) 04/09/18 07:00 Anion Gap 7 MMOL/L (8-16) L 04/09/18 07:00 BUN 6 mg/dL (7-18) L 04/09/18 07:00 Creatinine 0.7 mg/dL (0.55-1.3) 04/09/18 07:00 Creat Clearance w eGFR > 60 (>60) 04/09/18 07:00 Random Glucose 95 mg/dL (74-106) 04/09/18 07:00 Lactic Acid 1.0 mmol/L (0.4-2.0) 03/30/18 21:47 Calcium 8.7 mg/dL (8.5-10.1) 04/09/18 07:00 Phosphorus 4.1 mg/dL (2.5-4.9) 04/09/18 07:00 Magnesium 1.8 mg/dL (1.8-2.4) 04/09/18 07:00 Total Bilirubin 0.2 mg/dL (0.2-1) 04/05/18 06:36 AST 17 U/L (15-37) 04/05/18 06:36 ALT 25 U/L (13-61) 04/05/18 06:36 Alkaline Phosphatase 93 U/L (45-117) 04/05/18 06:36 C-Reactive Protein 0.4 MG/DL (0.00-0.3) H 04/05/18 06:36 Total Protein 6.0 g/dl (6.4-8.2) L 04/05/18 06:36 Albumin 3.6 g/dl (3.4-5.0) 04/05/18 06:36 Lipase 608 U/L (73-393) H 03/31/18 00:05 TSH 0.61 uIU/ml (0.358-3.74) 03/31/18 08:20 Serum , Qual Negative 03/31/18 00:05 Constitutional: Anxious ...Auscultate: Yes: Normoactive Bowel Sounds ...Palpate: Yes: Soft, Other (nontender) Labs: CBC, BMP 04/09/18 07:00 04/09/18 07:00 Assessment/Plan Attempting transfer to [email or web address] IBD unit. Problem List - Problems (1) Abdominal pain Code(s): R10.9 - UNSPECIFIED ABDOMINAL PAIN Qualifiers: Abdominal location: unspecified location Qualified Code(s): R10.9 - Unspecified abdominal pain (2) Pouchitis Code(s): K91.850 - POUCHITIS (3) History of colectomy Code(s): Z90.49 - ACQUIRED ABSENCE OF OTHER SPECIFIED PARTS OF DIGESTIVE TRACT (4) DVT (deep venous thrombosis) Code(s): I82.409 - ACUTE EMBOLISM AND THOMBOS UNSP DEEP VN UNSP LOWER EXTREMITY (5) Pulmonary embolism Code(s): I26.99 - OTHER PULMONARY EMBOLISM WITHOUT ACUTE COR PULMONALE (6) Crohns disease Code(s): K50.90 - CROHN'S DISEASE, UNSPECIFIED, WITHOUT COMPLICATIONS Qualifiers: Gastrointestinal tract location: unspecified location Digestive disease complication type: unspecified complication Qualified Code(s): K50.919 - Crohn 's disease, unspecified, with unspecified complications (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
--- NOTE | 2018-04-09 13:37 | PN ---
Physical Exam: SUBJECTIVE: Patient seen and examined. She is still complaining of diarrhea, watery brown with abdominal cramping on right side of her abdomen She also reports pain in multiple joints. She denies fever, chills. Waiting for transfer to [facility] when insurance accepted and beds available. OBJECTIVE: Vital Signs Period Temp Pulse Resp BP Sys/[place] Pulse Ox Last 24 Hr 97.8 F-98.4 F 89-137 18-20 91-101/54-57 GENERAL: The patient is awake, alert, and fully oriented, in no acute distress. HEAD: Normal with no signs of trauma. EYES: Extraocular movements intact, sclera anicteric, conjunctiva clear. ENT: Oropharynx clear without exudates, moist mucous membranes. NECK: Trachea midline, full range of motion, supple. LUNGS: Breath sounds equal, clear to auscultation bilaterally, no wheezes, no crackles, no accessory muscle use. HEART: Regular rate and rhythm, S1, S2 without murmur, rub or gallop. ABDOMEN: Tenderness to palpation mor on right side, + guarding, nondistended, hypoactive bowel sounds, no guarding, no rebound, no hepatosplenomegaly, no masses. EXTREMITIES: 2+ pulses, warm, well-perfused, swelling in left first ad second finger of left hand. PSYCH: Normal mood, normal affect. SKIN: Warm, dry, normal turgor, no rashes, well healed abdominal scar. Laboratory Results - last 24 hr 04/09/18 04/09/18 07:00 07:00 WBC 14.3 H RBC 3.78 Hgb 10.4 L Hct 32.4 MCV 85.7 MCH 27.5 MCHC 32.1 RDW 13.2 Plt Count 340 MPV 8.0 Sodium 139 Potassium 4.0 Chloride 105 Carbon Dioxide 27 Anion Gap 7 L BUN 6 L Creatinine 0.7 Creat Clearance w eGFR > 60 Random Glucose 95 Calcium 8.7 Phosphorus 4.1 Magnesium 1.8 Active Medications Generic Name Dose Route Start Last Admin Trade Name Freq PRN Reason Stop Dose Admin Diphenhydramine HCl 12.5 mg 04/05/18 10:33 04/09/18 11:51 Benadryl Injection - IVPB 12.5 mg Q4H PRN Administration NAUSEA AND/OR VOMITING Enoxaparin Sodium 50 mg 04/07/18 14:15 04/09/18 10:20 Lovenox - SQ 50 mg BID EVELYN Administration Hydromorphone HCl 0.5 mg 04/08/18 09:01 04/09/18 11:19 Dilaudid Vial - IVPB 0.5 mg Q6H PRN Administration PAIN LEVEL 6-10 Metronidazole 500 mg in 100 mls @ 100 mls/hr 04/02/18 18:00 04/09/18 12:40 Flagyl 500mg Premixed Ivpb - IVPB 100 mls/hr Q8H-IV EVELYN Administration Dextrose/Sodium Chloride 40 meq in 1,000 mls @ 125 mls/hr 04/03/18 10:00 10:22 D5-1/2ns+40 Meq Kcl - IV 125 mls/hr ASDIR EVELYN Administration Famotidine/Sodium Chloride 20 mg in 50 mls @ 100 mls/hr 04/05/18 14:00 10:20 Pepcid 20 Mg Premixed Ivpb - IVPB 100 mls/hr BID EVELYN Administration Levofloxacin 500 mg in 100 mls @ 100 mls/hr 04/09/18 13:30 Levaquin 500 Mg Premixed Ivpb - IVPB DAILY EVELYN Protocol Loperamide HCl 6 mg 04/03/18 10:17 04/05/18 10:00 Imodium - PO 6 mg Q6H PRN Administration DIARRHEA Methylprednisolone Sodium Succinate 30 mg 04/09/18 10:00 04/09/18 10:21 Solu-Medrol - IVPUSH 30 mg DAILY EVELYN Administration ASSESSMENT/PLAN: 42 year old female with past medical history of kidney stones, appendectomy, cholecystectomy, PE x2 s/p IVC, Crohn's disease s/p total colectomy with ostomy reversal, presented with nausea, bilious vomiting, diarrhea, and hematuria, associated with right lower abdominal/flank pain and subjective fevers. Nausea, vomiting, diarrhea, abdominal pain likely due to Crohn's disease vs acute gastroenteritis -CT AP: s/p multiple abdominal surgeries with no acute pathology -will f/u GI recommendations -Patient is accepted to [facility]- Dr Annetta Pitts, pending insurnce acceptance and bed availability, patient case manager contacted -continue Levaquin 500mg daily and Flagyl 500mg q8h -cont. Immodium 6mg q6h as tolerated for diarrhea. -cont Solu-medrol 30mg daily. -cont Pepcid 20 mg BID -cont D5-1/2NS +40meq KCl @ 125ml/hr -cont IV benadryl 12.5mg q4 and IV dilaudid 0.5 q6h- continue current regimen, consulted pain management -Stool culture no growth Hematuria: -resolved -continue fluids -CT: Hyperdense renal masses possibly representing cysts, on Lovenox for DVT PPX -Nephrology (Dr. Roy) consulted. Recommendations appreciated -Urology (Dr. 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 Monsivais) consulted, will start Sulfasalazine 1 gr BID when on PO diet and Humira on dischrge FEN:IV D5-1/2NS +40meq KCl @ 125ml/hr/ no changes/clear diet DVT Prophylaxis -Lovenox 50mg sq BID Disposition med-surg, waiting for transfer to tertiary care center Problem List - Problems (1) Hematuria Code(s): R31.9 - HEMATURIA, UNSPECIFIED (2) Abdominal pain Code(s): R10.9 - UNSPECIFIED ABDOMINAL PAIN Qualifiers: Abdominal location: unspecified location Qualified Code(s): R10.9 - Unspecified abdominal pain (3) Crohns disease Code(s): K50.90 - CROHN'S DISEASE, UNSPECIFIED, WITHOUT COMPLICATIONS Qualifiers: Gastrointestinal tract location: unspecified location Digestive disease complication type: unspecified complication Qualified Code(s): K50.919 - Crohn 's disease, unspecified, with unspecified complications (4) DVT (deep venous thrombosis) Code(s): I82.409 - ACUTE EMBOLISM AND THOMBOS UNSP DEEP VN UNSP LOWER EXTREMITY (5) Enteropathic arthropathies of multiple sites Code(s): M07.69 - ENTEROPATHIC ARTHROPATHIES, MULTIPLE SITES (6) History of colectomy Code(s): Z90.49 - ACQUIRED ABSENCE OF OTHER SPECIFIED PARTS OF DIGESTIVE TRACT (7) Nausea vomiting and diarrhea Code(s): R11.2 - NAUSEA WITH VOMITING, UNSPECIFIED; R19.7 - DIARRHEA, UNSPECIFIED (8) Pulmonary embolism Code(s): I26.99 - OTHER PULMONARY EMBOLISM WITHOUT ACUTE COR PULMONALE Visit type - Emergency Visit Emergency Visit: Yes ED Registration Date: 03/31/18 Care time: The patient presented to the Emergency Department on the above date and was hospitalized for further evaluation of their emergent condition. - New Patient This patient is new to me today: Yes Date on this admission: 04/09/18 - Critical Care Critical Care patient: No - Discharge Referral Referred to [facility] Med [facility] No
[2018-04-10] MEDS: HYDROmorphone HCl 2 MG/ML VIAL IVPB PRN ×4 (05:26→23:07)
[2018-04-10] MEDS: D5-1/2NS+40 MEQ KCL - 40 MEQ/1,000 ML INFUS.BAG IV SCH ×3 (07:08→20:05)
[2018-04-10 07:38] LABS: BASO % 0.3 % (0-2.0); EOS % 0.7 % (0-4.5); HEMATOCRIT 28.7 % (32.4-45.2); HEMOGLOBIN 9.3 GM/dL (10.7-15.3); LYMPH % 21.7 % (8-40); MCH 27.5 pg (25.7-33.7); MCHC 32.3 g/dl (32.0-36.0); MEAN PLT VOLUME 7.7 fl (7.5-11.1); MONO % 6.7 % (3.8-10.2); NEUT % 70.6 % (42.8-82.8); PLATELET COUNT 296 K/MM3 (134-434); RBC 3.37 M/mm3 (3.60-5.2); WHITE BLOOD COUNT 10.2 K/mm3 (4.0-10.0)
[2018-04-10 08:18] LABS: ALBUMIN 3.4 g/dl (3.4-5.0); ALK PHOS 76 U/L (45-117); ANION GAP 9 MMOL/L (8-16); BILIRUBIN,TOTAL 0.4 mg/dL (0.2-1); BLOOD UREA NITROGEN 4 mg/dL (7-18); CALCIUM 8.7 mg/dL (8.5-10.1); CHLORIDE 105 mmol/L (98-107); CO2 26 mmol/L (21-32); CREATININE 0.6 mg/dL (0.55-1.3); GLUCOSE,RANDOM 95 mg/dL (74-106); MAGNESIUM 1.6 mg/dL (1.8-2.4); SGOT/AST 15 U/L (15-37); SGPT/ALT 18 U/L (13-61); SODIUM 139 mmol/L (136-145); TOT PROT 5.8 g/dl (6.4-8.2)
[2018-04-10] MEDS: methylPREDNISolone NA SUCC 40 MG/1 ML VIAL IVPUSH SCH (09:19)
[2018-04-10] MEDS: ENOXAPARIN NA (PORCINE) 60 MG/0.6 ML DISP.SYRIN SQ SCH ×2 (09:19→22:32)
[2018-04-10] MEDS: PORTA CATH FLUSH 10 ML IVPUSH PRN ×3 (09:19→17:20)
[2018-04-10] MEDS ORDERED: PT OWN MED DRAWER 7, Y5N ONE (09:43)
[2018-04-10] MEDS: FAMOTIDINE 20 MG/50 ML IVPB 20 MG/50 ML MG IVPB SCH ×2 (09:47→22:30)
[2018-04-10] MEDS ORDERED: ACETAMINOPHEN 1000 MG/100 ML VIAL (NON FORMULARY) IVPB ONE (10:25)
--- NOTE | 2018-04-10 10:29 | PN ---
Progress Note (short form) - Note Progress Note: Subjective: N/V/D. wants more benadryl and more dilaudid Objective: Vital Signs: Last Vital Signs Temp Pulse Resp BP Pulse Ox 98 F 105 H 18 104/69 99 04/10/18 06:00 04/10/18 06:00 04/10/18 06:00 04/10/18 06:00 04/09/18 20:51 Laboratory Results - last 24 hr 04/10/18 04/10/18 07:30 07:30 WBC 10.2 H RBC 3.37 L Hgb 9.3 L Hct 28.7 L MCV 85.0 MCH 27.5 MCHC 32.3 RDW 13.0 Plt Count 296 MPV 7.7 Absolute Neuts (auto) 7.2 Neutrophils % 70.6 Lymphocytes % 21.7 D Monocytes % 6.7 Eosinophils % 0.7 Basophils % 0.3 Nucleated RBC % 0 Sodium 139 Potassium 4.0 Chloride 105 Carbon Dioxide 26 Anion Gap 9 BUN 4 L Creatinine 0.6 Creat Clearance w eGFR > 60 Random Glucose 95 Calcium 8.7 Magnesium 1.6 L Total Bilirubin 0.4 AST 15 ALT 18 Alkaline Phosphatase 76 Total Protein 5.8 L Albumin 3.4 Physical Exam: NAD, comfortable and cooperative CV: RRR Lungs: CTAB Abd: soft,hypoactive BS. old surgical scars. 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 crohn's flare - cont solumedrol - cont levaquin and flagyl - cont liquid diet - cont dilaudid to 0.5 q 6h. will not increase dose - try IV tylenol - change benadryl to old dosing 25 mg q6hr instead of 12.5 q4 hr. - cont IVF - avoid more narcotics due to the severe N/V she has, and to avoid dependence - pain management consult pending 2- h/o DVTs, and IVC thrombus: - cont Lovenox 50 mg BID 3- Hematuria : intermittent - f/u as out pt regarding renal masses vs cysts. 4- Dispo: Transfer to [facility] is still pending insurance approval. d/w social work professor jonathon Visit type - Emergency Visit Emergency Visit: Yes ED Registration Date: 03/31/18 Care time: The patient presented to the Emergency Department on the above date and was hospitalized for further evaluation of their emergent condition. - New Patient This patient is new to me today: Yes Date on this admission: 04/10/18 - Critical Care Critical Care patient: No
--- NOTE | 2018-04-10 11:02 | PN ---
GI Progress Note Subjective: GI NOte: Still c/o pain, nausea and diarrhea. Unable to eat anything. Wants more pain meds. Benadryl already adjusted by Dr Osorio with whom I discussed the case. Contacted Dr Pitts at [facility] who was willing to take Valery in transfer but they need her insurance to approve it. I placed a [employer] insurance facesheet into the chart. - Objective Vital Signs: Vital Signs Temperature 98 F 04/10/18 06:00 Pulse Rate 105 H 04/10/18 06:00 Respiratory Rate 18 04/10/18 06:00 Blood Pressure 104/69 04/10/18 06:00 O2 Sat by Pulse Oximetry (%) 99 04/09/18 20:51 Laboratory Tests 04/10/18 04/10/18 07:30 07:30 WBC 10.2 H Hgb 9.3 L Potassium 4.0 Anion Gap 9 BUN 4 L Creatinine 0.6 Total Bilirubin 0.4 Albumin 3.4 Constitutional: Anxious Labs: CBC, BMP 04/10/18 07:30 04/10/18 07:30 Assessment/Plan Will attempt transfer to [facility] IBD unit tomorrow when our team can handle the [employer] requirements. Problem List - Problems (1) Abdominal pain Code(s): R10.9 - UNSPECIFIED ABDOMINAL PAIN Qualifiers: Abdominal location: unspecified location Qualified Code(s): R10.9 - Unspecified abdominal pain (2) Pouchitis Code(s): K91.850 - POUCHITIS (3) History of colectomy Code(s): Z90.49 - ACQUIRED ABSENCE OF OTHER SPECIFIED PARTS OF DIGESTIVE TRACT (4) DVT (deep venous thrombosis) Code(s): I82.409 - ACUTE EMBOLISM AND THOMBOS UNSP DEEP VN UNSP LOWER EXTREMITY (5) Pulmonary embolism Code(s): I26.99 - OTHER PULMONARY EMBOLISM WITHOUT ACUTE COR PULMONALE (6) Crohns disease Code(s): K50.90 - CROHN'S DISEASE, UNSPECIFIED, WITHOUT COMPLICATIONS Qualifiers: Gastrointestinal tract location: unspecified location Digestive disease complication type: unspecified complication Qualified Code(s): K50.919 - Crohn 's disease, unspecified, with unspecified complications (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
[2018-04-10] MEDS ORDERED: MAGNESIUM SULF 50% (8.12 MEQ/2 ML-1 GM VIAL) IVPB ONE (15:13)
--- NOTE | 2018-04-10 15:13 | PN ---
Progress Note, Physician History of Present Illness: Pt seen and examined at bedside. She still cant tolerated diet. She has diarrhea. She says she will likely be transferred tomorrow. She denies shortness of breath. - Current Medication List Current Medications: Active Medications Diphenhydramine HCl (Benadryl Injection -) 25 mg IVPB Q6H PRN PRN Reason: NAUSEA AND/OR VOMITING Enoxaparin Sodium (Lovenox -) 50 mg SQ BID EVELYN Last Admin: 04/10/18 09:19 Dose: 50 mg Hydromorphone HCl (Dilaudid Vial -) 0.5 mg IVPB Q6H PRN PRN Reason: PAIN LEVEL 6-10 Last Admin: 04/10/18 11:18 Dose: 0.5 mg IV Flush (Riaz-Cath Flush) 10 ml IVPUSH PRN PRN PRN Reason: HOSPITAL PROTOCOL Last Admin: 04/10/18 11:18 Dose: 10 ml Metronidazole (Flagyl 500mg Premixed Ivpb -) 500 mg in 100 mls @ 100 mls/hr IVPB Q8H-IV EVELYN Last Admin: 04/10/18 10:26 Dose: 100 mls/hr Dextrose/Sodium Chloride (D5-1/2ns+40 Meq Kcl -) 40 meq in 1,000 mls @ 125 mls/ hr IV ASDIR EVELYN Last Admin: 04/10/18 10:20 Dose: Not Given Famotidine/Sodium Chloride (Pepcid 20 Mg Premixed Ivpb -) 20 mg in 50 mls @ 100 mls/hr IVPB BID EVELYN Last Admin: 04/10/18 09:47 Dose: 100 mls/hr Levofloxacin (Levaquin 500 Mg Premixed Ivpb -) 500 mg in 100 mls @ 100 mls/hr IVPB DAILY [facility]; Protocol Last Admin: 04/10/18 12:40 Dose: 100 mls/hr Loperamide HCl (Imodium -) 6 mg PO Q6H PRN PRN Reason: DIARRHEA Last Admin: 04/05/18 10:00 Dose: 6 mg Methylprednisolone Sodium Succinate (Solu-Medrol -) 30 mg IVPUSH DAILY [facility] Last Admin: 04/10/18 09:19 Dose: 30 mg - Objective Vital Signs: Vital Signs Temperature 98.0 F 04/10/18 13:29 Pulse Rate 122 H 04/10/18 13:29 Respiratory Rate 20 04/10/18 13:29 Blood Pressure 116/77 04/10/18 13:29 O2 Sat by Pulse Oximetry (%) 98 04/10/18 09:00 Constitutional: Yes: Calm Eyes: Yes: Conjunctiva Clear HENT: Yes: Atraumatic Neck: Yes: Supple Cardiovascular: Yes: S1, S2 Respiratory: Yes: CTA Bilaterally Gastrointestinal: Yes: Soft Genitourinary: Yes: Hematuria Edema: No Neurological: Yes: Oriented Psychiatric: Yes: Oriented Labs: CBC, BMP 04/10/18 07:30 04/10/18 07:30 Problem List - Problems (1) Abdominal pain Code(s): R10.9 - UNSPECIFIED ABDOMINAL PAIN Qualifiers: Abdominal location: unspecified location Qualified Code(s): R10.9 - Unspecified abdominal pain (2) Crohns disease Code(s): K50.90 - CROHN'S DISEASE, UNSPECIFIED, WITHOUT COMPLICATIONS Qualifiers: Gastrointestinal tract location: unspecified location Digestive disease complication type: unspecified complication Qualified Code(s): K50.919 - Crohn 's disease, unspecified, with unspecified complications (3) Nausea vomiting and diarrhea Code(s): R11.2 - NAUSEA WITH VOMITING, UNSPECIFIED; R19.7 - DIARRHEA, UNSPECIFIED Assessment/Plan Current Medications Generic Name Dose Route Start Last Admin Trade Name Freq PRN Reason Stop Dose Admin Diphenhydramine HCl 25 mg 04/10/18 10:26 Benadryl Injection - IVPB Q6H PRN NAUSEA AND/OR VOMITING Enoxaparin Sodium 50 mg 04/07/18 14:15 04/10/18 09:19 Lovenox - SQ 50 mg BID EVELYN Administration Hydromorphone HCl 0.5 mg 04/08/18 09:01 04/10/18 11:18 Dilaudid Vial - IVPB 0.5 mg Q6H PRN Administration PAIN LEVEL 6-10 IV Flush 10 ml 04/09/18 17:00 04/10/18 11:18 Riaz-Cath Flush IVPUSH 10 ml PRN PRN Administration HOSPITAL PROTOCOL Metronidazole 500 mg in 100 mls @ 100 mls/hr 04/02/18 18:00 04/10/18 10:26 Flagyl 500mg Premixed Ivpb - IVPB 100 mls/hr Q8H-IV EVELYN Administration Dextrose/Sodium Chloride 40 meq in 1,000 mls @ 125 mls/hr 04/03/18 10:00 10:20 D5-1/2ns+40 Meq Kcl - IV Not Given ASDIR EVELYN Famotidine/Sodium Chloride 20 mg in 50 mls @ 100 mls/hr 04/05/18 14:00 09:47 Pepcid 20 Mg Premixed Ivpb - IVPB 100 mls/hr BID EVELYN Administration Levofloxacin 500 mg in 100 mls @ 100 mls/hr 04/09/18 13:30 04/10/18 12:40 Levaquin 500 Mg Premixed Ivpb - IVPB 100 mls/hr DAILY EVELYN Administration Protocol Loperamide HCl 6 mg 04/03/18 10:17 04/05/18 10:00 Imodium - PO 6 mg Q6H PRN Administration DIARRHEA Methylprednisolone Sodium Succinate 30 mg 04/09/18 10:00 04/10/18 09:19 Solu-Medrol - IVPUSH 30 mg DAILY EVELYN Administration Impression 1. hematuria 2. renal mass vs cyst 3. crohns disease 4. hx of DVT 5. vomiting 6. diarrhea 7. hx nephrolithiasis 8. hypomagnesemia Plan - replace mag - cont fluids - pt pending transfer - monitor urine - will repeat ua once urine clears Dr Roy
[2018-04-11] MEDS: HYDROmorphone HCl 2 MG/ML VIAL IVPB PRN ×2 (04:52→10:51)
[2018-04-11] MEDS: D5-1/2NS+40 MEQ KCL - 40 MEQ/1,000 ML INFUS.BAG IV SCH ×2 (05:59→10:52)
[2018-04-11 08:57] LABS: MAGNESIUM 1.9 mg/dL (1.8-2.4); PHOSPHOROUS 3.4 mg/dL (2.5-4.9)
[2018-04-11] MEDS: FAMOTIDINE 20 MG/50 ML IVPB 20 MG/50 ML MG IVPB SCH (09:00)
[2018-04-11] MEDS: ENOXAPARIN NA (PORCINE) 60 MG/0.6 ML DISP.SYRIN SQ SCH (09:36)
[2018-04-11] MEDS: PORTA CATH FLUSH 10 ML IVPUSH PRN (09:36)
--- NOTE | 2018-04-11 10:23 | CONSULT ---
Consult Consult Specialty:: pain medicine Referred by:: primary team Reason for Consultation:: abdominal pain. 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 The patient reports several days of worsening crampy right sided abdominal pain with associated nausea and multiple episodes of non-bilious, non-bloody vomiting and non-bloody diarrhea. Pt states she has been unable to tolerate any PO. She notes that she has PMH of colectomy in 2012 with iliostomy and reversal in December 2017 at [facility]. She states that her current symptoms are similar to her normal crohn's flares. The patient has been in hospitals and getting opioids as inpatient. ISTOP reviewed- there were some prescriptions for oxycodone as outpatient but minimal. 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[place], [place] History of Recent Travel: No Home Medications - Allergies Allergies/Adverse Reactions: Allergies Allergy/AdvReac Type Severity Reaction Status Date / Time aspirin Allergy Verified 03/30/18 20:47 Iodine and Iodide Containing Allergy Verified 03/31/18 00:17 Produc metoclopramide [From Reglan] Allergy Verified 03/30/18 20:47 morphine Allergy Verified 03/30/18 20:47 Penicillins Allergy Verified 03/30/18 20:47 shellfish derived Allergy Verified 03/30/18 20:47 - Home Medications Home Medications: Ambulatory Orders Diphenoxylate 2.5/Atropine.025 [Lomotil -] 1 combo PO Q6H 03/31/18 Enoxaparin [Lovenox -] 40 mg SQ BID 03/31/18 Loperamide HCl [Imodium -] 8 mg PO QID 03/31/18 Ondansetron [Zofran -] 4 mg PO Q6H PRN 03/31/18 Pantoprazole Sodium [Protonix -] 40 mg PO DAILY 03/31/18 Family Disease History - Family Disease History Family Disease History: Other: Father (Alive, healthy), Mother ( : 54: BCA / Uterine CA), Brother (None), Sister (None), Son (None), Daughter (None) Physical Exam Vital Signs: Vital Signs Temperature 98 F 04/11/18 06:47 Pulse Rate 103 H 04/11/18 06:47 Respiratory Rate 18 04/11/18 06:47 Blood Pressure 98/64 04/11/18 06:47 O2 Sat by Pulse Oximetry (%) 98 04/10/18 21:00 Gastrointestinal: Yes: Other (abdominal pain) Labs: CBC, BMP 04/10/18 07:30 04/10/18 07:30 Assessment/Plan Abdominal pain secondary to crohns 1. awaiting tx to [facility] 2. would recommend increasing dilaudid 0.5mg IVPB q4h prn pain 3. outpatient medical marijuana
[2018-04-11] MEDS: methylPREDNISolone NA SUCC 40 MG/1 ML VIAL IVPUSH SCH (10:53)
--- NOTE | 2018-04-11 11:59 | DS ---
Physical Exam: SUBJECTIVE: Patient seen and examined at bedside this morning. No acute events overnight. OBJECTIVE: Vital Signs Period Temp Pulse Resp BP Sys/Newton Pulse Ox Last 24 Hr 97.8 F-98.0 F 103-122 18-20 98-116/64-77 98 PHYSICAL EXAM GENERAL: The patient is awake, alert, and fully oriented, in no acute distress. HEAD: Normal with no signs of trauma. EYES: PERRL, extraocular movements intact, sclera anicteric, conjunctiva clear. ENT: Ears normal, nares patent, oropharynx clear without exudates, moist mucous membranes. NECK: Trachea midline, full range of motion, supple. LUNGS: Breath sounds equal, clear to auscultation bilaterally, no wheezes, no crackles, no accessory muscle use. HEART: Regular rate and rhythm, S1, S2 without murmur, rub or gallop. ABDOMEN: Soft, nontender, nondistended, normoactive bowel sounds, no guarding, no rebound, no hepatosplenomegaly, no masses. EXTREMITIES: 2+ pulses, warm, well-perfused, no edema. NEUROLOGICAL: Cranial nerves II through XII grossly intact. Normal speech, gait not observed. PSYCH: Normal mood, normal affect. SKIN: Warm, dry, normal turgor, no rashes or lesions noted. LABS Laboratory Results - last 24 hr 04/11/18 08:10 Phosphorus 3.4 Magnesium 1.9 HOSPITAL COURSE: Date of Admission:03/31/18 Date of Discharge: 04/11/18 Discharge Summary Reason For Visit: CROHN'S DISEASE,ABDOMINAL PAIN Current Active Problems Abdominal pain (Acute) Crohns disease (Acute) DVT (deep venous thrombosis) (Acute) Enteropathic arthropathies of multiple sites (Acute) Hematuria (Acute) History of colectomy (Acute) Nausea vomiting and diarrhea (Acute) Pouchitis (Acute) Pulmonary embolism (Acute) Condition: Stable - Instructions Diet, Activity, Other Instructions: You were admitted because you had nausea, vomiting and diarrhea. This was likely caused by Crohn's disease and the surgeries you have had. You were treated with fluids, steroids and antibiotics. CAT scan did not show any obstruction of your bowels. You were noted to have blood in your urine. Please follow-up with the urologist (Dr. Day) within 1-2 weeks. please call his office to schedule an appointment. a mass or a cyst on your kidney need to be worked up It is strongly recommended that you follow-up with Dr. Neville and Dr. Chen within 1 week. You were seen and evaluated by the gastroenterologists, who recommended that you follow-up with Dr. Katina Garza at [facility] ([place]). You were also evaluated by the talend etl developer (Dr. Monsivais). It is important that you follow-up with him within 1 week. Please call his office to schedule an appointment. Call 911 or go to the ED if with any worsening fever, chills, abdominal pain, diarrhea, nausea, vomiting, or any new concerns noted. Referrals: Tyler Valdivia MD [Staff Physician] - Edwin Ann DO [Staff Physician] - Frankie Day MD [Staff Physician] - Ryan Monsivais MD [Staff Physician] - Fe Roy MD [Staff Physician] - Disposition: HOME - Home Medications Comprehensive Discharge Medication List: Ambulatory Orders Diphenoxylate 2.5/Atropine.025 [Lomotil -] 1 combo PO Q6H 03/31/18 Enoxaparin [Lovenox -] 40 mg SQ BID 03/31/18 Loperamide HCl [Imodium -] 8 mg PO QID 03/31/18 Ondansetron [Zofran -] 4 mg PO Q6H PRN 03/31/18 Pantoprazole Sodium [Protonix -] 40 mg PO DAILY 03/31/18 - Discharge Referral Referred to [facility] Med P.C.: No
--- NOTE | 2018-04-11 13:13 | PN ---
Teaching Attending Note Name of Resident: Yary Arredondo ATTENDING PHYSICIAN STATEMENT I saw and evaluated the patient. I reviewed the resident's note and discussed the case with the resident. I agree with the resident's findings and plan as documented. SUBJECTIVE: no fever or chills . has pain and wants more dilaudid OBJECTIVE: NAD, comfortable and cooperative CV: RRR Lungs: CTAB Abd: soft, hypoactive BS. old surgical scars. Ext : no edema or erythema. 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 Crohn's flare - cont solumedrol - cont levaquin and flagyl - cont liquid diet - pain management consult . concern for narcotic dependence - cont IVF 2- h/o DVTs, and IVC thrombus: - cont Lovenox 50 mg BID 3- Hematuria: intermittent - f/u as out pt regarding renal masses vs cysts. 4- Dispo: Transfer today
[2018-04-11] MEDS ORDERED: HYDROmorphone HCl 2 MG/ML VIAL IVPB PRN (14:01)
[2018-04-11 15:16] VITALS: BP 103/66; PULSE 118; TEMP 97.5
--- NOTE | 2018-04-11 17:57 | DS ---
Physical Exam: SUBJECTIVE: Patient seen and examined at [facility] this morning. She still reports nausea, vomiting and diarrhea. Patient has been complaining of abdominal pain, not relieved by dilaudid IVPB, patient requests for IV push. In the afternoon, it was known that patient's insurance would not cover her transfer to [place]. Patient was told, final decision will be known on Wednesday. Patient decided to sign AMA. OBJECTIVE: Vital Signs Period Temp Pulse Resp BP Sys/Newton Pulse Ox Last 24 Hr 97.5 F-98.6 F 103-118 18-18 98-108/64-71 98-98 PHYSICAL EXAM GENERAL: The patient is awake, alert, and fully oriented, in no acute distress. HEAD: Normal with no signs of trauma. EYES: PERRLA, EOMI, sclera anicteric, pale conjunctivae. ENT: Ears normal, nares patent, oropharynx clear without exudates, dry mucous membranes. NECK: Trachea midline, full range of motion, supple. LUNGS: Breath sounds equal, clear to auscultation bilaterally. HEART: Regular rate and rhythm, S1, S2 without murmur, rub or gallop. ABDOMEN: Soft, +LLQ/RLQ tenderness, nondistended, normoactive bowel sounds. EXTREMITIES: 2+ pulses, warm, well-perfused, no edema. NEUROLOGICAL: Cranial nerves II through XII grossly intact. Normal speech, gait not observed. PSYCH: Normal mood, normal affect. SKIN: Warm, dry, normal turgor, no rashes or lesions noted LABS Laboratory Results - last 24 hr 04/11/18 08:10 Phosphorus 3.4 Magnesium 1.9 -CT AP: s/p multiple abdominal surgeries with no evidence of bowel obstruction or acute pathology within the abdomen or pelvis. Hyperdense renal masses possibly representing cysts. -Renal US: morphologically normal kidneys with no evidence of nephrolithiasis, hydronephrosis, or acute pathology. The small right renal cyst does correspond to the hyperdense mass noted on the recent CT scan. The hypodense left renal mass could not be identified on the sonogram. -X-ray of pelvis - Symmetrical hips, no sign of fracture subluxation, no sign of blastic or lytic changes. 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 GI was consulted. Patient was started on IV fluids, benadryl for nausea and dilaudid for pain. CT scan was done which showed no evidence of bowel obstruction or any acute pathology. Stool culture, c. diff and O&P were negative. Patient continue to report nausea,vomiting, and diarrhea. IV steroids, Levaquin and Flagyl were started. An arrangement for transfer to IBD center in [facility] was done. During her hospital stay, nephrology and urology were consulted for evaluation of a right renal cyst and hematuria. Cystoscopy was recommended as outpatient. Rheumatology was also consulted as patient was reporting pain and swelling of both hands, likely an extraintestinal manifestation of Crohn's. It was suggested that patient be started on Sulfasalazine once able to tolerate PO and to start Humira on discharge. Patient was accepted at [facility], however her insurance had issues with the other hospital. At this time, patient has been complaining that IVPB benadryl and dilaudid were not working anymore and demanded that she receive these medications via IV push and given more frequently. Pain management was consulted and continued present management. Patient signed out AMA. Minutes to complete discharge: 45 Discharge Summary Reason For Visit: CROHN'S DISEASE,ABDOMINAL PAIN Current Active Problems Abdominal pain (Acute) Enteropathic arthropathies of multiple sites (Acute) Hematuria (Acute) Nausea vomiting and diarrhea (Acute) Crohns disease (Chronic) DVT (deep venous thrombosis) (Chronic) History of colectomy (Chronic) Pulmonary embolism (Chronic) Condition: Stable - Instructions Diet, Activity, Other Instructions: Your visit You were admitted to the hospital because you had nausea, vomiting and diarrhea. This was likely caused by Crohn's disease and the surgeries you have had. You were treated with fluids, steroids and antibiotics. CAT scan did not show any obstruction of your bowels. You were seen by a GI doctor. You were noted to have blood in your urine and masses Vs cysts on your kidneys . You were seen by a urologist who recommended that you follow-up. We are transferring you to [facility] for more specialized care of your Crohn's. Medications Please continue the following medications as inpatient: -IV Solu-medrol 30mg daily -Flagyl 500mg every 8 hours -Levaquin 500mg daily -Lovenox 50mg twice a day -Lomotil 1 tablet every 8 hours. -Protonix 40mg daily Care -Advance your diet as tolerated. Follow ups -You were seen and evaluated by the gastroenterologists, you will receive continued care by the gastroenterologists at [facility], please follow-up with them as recommended. -You were also evaluated by the sweeper cleaner industrial (Dr. Monsivais). It is important that you follow-up with him within 2 weeks. Please call his office to schedule an appointment. -Follow-up with the urologist (Dr. Day) within 2 weeks. Please call his office to schedule an appointment. A mass or a cyst on your kidney need to be worked up. -Follow-up with nephrology (Dr. Roy) within 1-2 weeks. -Follow-up with the spray painter helper (Dr. Valdivia) within 2 weeks. Additional info Call 911 or go to the ED if with any worsening fever, chills, abdominal pain, diarrhea, nausea, vomiting, or any new concerns noted. Referrals: Tyler Valdivia MD [Staff Physician] - 1 Week Frankie Day MD [Staff Physician] - 2 Weeks Ryan Monsivais MD [Staff Physician] - 2 Weeks Betzaida Lovett MD [Staff Physician] - 2 Weeks Fe Roy MD [Staff Physician] - 2 Weeks Disposition: AGAINST MEDICAL ADVICE - Home Medications Comprehensive Discharge Medication List: Ambulatory Orders Diphenoxylate 2.5/Atropine.025 [Lomotil -] 1 combo PO Q6H 03/31/18 Pantoprazole Sodium [Protonix -] 40 mg PO DAILY 03/31/18 Enoxaparin [Lovenox -] 50 mg SQ BID disp.syrin 04/11/18 Loperamide HCl [Imodium -] 6 mg PO Q6H PRN capsule 04/11/18 Methylprednisolone Na Succ [Solu-Medrol -] 30 mg IVPUSH DAILY vial 04/11/18 levoFLOXacin 500 MG IVPB [Levaquin 500 mg Premixed Ivpb -] 500 mg IVPB DAILY 7 Days bag 04/11/18 metroNIDAZOLE PREMIXED IVPB [Flagyl 250Mg Premixed Ivpb -] 500 mg IVPB Q8H 7 Days mg 04/11/18 This patient is new to me today: No Emergency Visit: Yes ED Registration Date: 03/31/18 Care time: The patient presented to the Emergency Department on the above date and was hospitalized for further evaluation of their emergent condition. Critical Care patient: No - Discharge Referral Referred to [facility] Med P.C.: No
== END 2018-04-11 16:25 | disposition left against medical advice (07) | DRG 245 ==
LOC: JER 20:29 → JERBED 03-31 03:20 → J8W 03-31 16:58
PROVIDERS: ADMIT Internal Medicine; ATTEND Internal Medicine
DX: K50.90 Crohn's disease, unspecified, without complications (principal); R31.9 Hematuria, unspecified; J98.11 Atelectasis; R11.2 Nausea with vomiting, unspecified; R19.7 Diarrhea, unspecified; M13.0 Polyarthritis, unspecified; K52.9 Noninfective gastroenteritis and colitis, unspecified; Q61.02 Congenital multiple renal cysts; E83.42 Hypomagnesemia; E87.6 Hypokalemia
CPT/HCPCS: 36415; 72170-TC-FY; 74176-TC; 76775-TC; 80048; 80053; 81003; 81015; 83605; 83690; 83735; 83993; 84100; 84443; 84703; 85025; 85027; 85651; 86140; 86671; 87045; 87046; 87086; 87177; 87186; 87209; 87324; 87449; 93005; 93010; 93971-TC; 99284-25; J0131; J7030